=== PATIENT | male | born 1960 | race Caucasian/White ===

== ENCOUNTER 2017-10-29 12:09 | Outpatient (REF) | payer MEDICAID, SELFPAY ==
[2017-11-02 11:43] LABS: Hepatitis C Ab w Rflx HCV PCR Negative (NEGAT)
== END 2017-10-29 12:10 ==
LOC: NCHCN 12:09
PROVIDERS: Visit Provider Nurse Practitioner Family
DX: K52.9 Noninfective gastroenteritis and colitis, unspecified (principal); R19.7 Diarrhea, unspecified; I42.9 Cardiomyopathy, unspecified; M19.90 Unspecified osteoarthritis, unspecified site; F17.210 Nicotine dependence, cigarettes, uncomplicated
CPT/HCPCS: 86803

== ENCOUNTER 2019-01-14 13:02 | Outpatient (REF) | payer MEDICAID, SELFPAY ==
[2019-01-14 19:17] LABS: ALT 35 U/L (16-63); AST 25 U/L (15-37); Albumin 4.2 g/dL (3.4-5.0); Alkaline Phosphatase 90 U/L (46-116); Anion Gap 9.2 mmol/L (3-11); BUN 21 mg/dL (7-18); Bilirubin, Total 0.3 mg/dL (0.2-1.0); CO2 27.8 mmol/L (21.0-32.0); Calcium 9.3 mg/dL (8.5-10.1); Chloride 105 mmol/L (98-107); Glucose 111 mg/dL (70-100); Magnesium 1.8 mg/dL (1.8-2.4); Potassium 4.6 mmol/L (3.5-5.1); Sodium 142 mmol/L (136-145); Total Protein 7.4 g/dL (6.4-8.2); Vitamin B12 676 pg/mL (193-986)
== END 2019-01-14 13:22 ==
LOC: NCHCN 13:02
PROVIDERS: PCP Nurse Practitioner Family; Visit Provider Nurse Practitioner Family
DX: K30 Functional dyspepsia (principal); I42.9 Cardiomyopathy, unspecified; F17.210 Nicotine dependence, cigarettes, uncomplicated; J44.9 Chronic obstructive pulmonary disease, unspecified; L98.9 Disorder of the skin and subcutaneous tissue, unspecified; M54.2 Cervicalgia
CPT/HCPCS: 80053; 82607; 83735

== ENCOUNTER 2019-01-24 02:13 | Outpatient (CLI) | payer MEDICAID, SELFPAY ==
--- NOTE | 2019-01-24 14:15 | DI.CTLCSR_ITS ---
EXAM: CT CHEST LUNG CANCER SCREEN CT CHEST LUNG CANCER SCREEN CLINICAL HISTORY: . TOBACCO ABUSE, F17.210, F/U TECHNIQUE: Low-dose noncontrast COMPARISON: CHEST WITH CONTRAST from 03/18/2017 FINDINGS: Tracheobronchial tree: Patent where visualized. Mediastinum and Nohelia: No dominant adenopathy or fluid collection. Pulmonary parenchyma: No consolidation or dominant measurable mass. There is mild biapical scarring. Lung Nodules: None. Pleura: No effusion or pneumothorax. Heart/Aorta: Thoracic aorta non-dilated. The heart is not dilated. . Upper abdomen: Unremarkable. IMPRESSION: Normal low dose CT lung screening Lung-RADS Category: 1 - Negative (See reference table below.) Lung-RADS 1.0 CATEGORIES: Category 0 - Prior chest CT exam(s) being located for comparison. Category 1 - Annual screening in 12 months. No nodules or definitely benign nodules. Category 2 - Annual screening in 12 months. Benign appearance. Nodules with low likelihood of becomin g active cancer. Category 3 - 6-month follow-up. Probably benign. Short-term follow-up suggested. Nodules with low lik elihood of becoming active cancer. Category 4A - 3-month follow-up and CT/PET if >8 mm in size. Suspicious finding. Findings which requi re additional testing. Category 4B - Findings which require additional testing and tissue sampling. Suspicious finding. C Added to Any of the Above - History of prior lung cancer screening. S Added to Any of the Above - Significant unexpected other finding. DATA REPOSITORY: All CT scans at this facility are submitted to the National Radiology Data Registry (NRDR) Dose Index Registry (DIR) with the [employer] (ACR). RADIATION OPTIMIZATION: All CT scans at this facility use at least one of these dose optimization te chniques: automated exposure control; mA and/or kV adjustment per patient size (includes targeted exa ms where dose is matched to clinical indication); or iterative reconstruction.
== END 2019-01-24 02:33 ==
PROVIDERS: PCP Nurse Practitioner Family; Visit Provider Nurse Practitioner Family
DX: Z12.2 Encounter for screening for malignant neoplasm of respiratory organs (principal); F17.210 Nicotine dependence, cigarettes, uncomplicated
CPT/HCPCS: G0297

== ENCOUNTER 2019-12-26 13:57 | Outpatient (REF) | payer MEDICAID, SELFPAY ==
[2019-12-30 14:37] LABS: Patient Race White; SARS-CoV-2 RNA Undetected (Undetected); SARS-CoV-2 Specimen Source Nasal
== END 2019-12-26 14:17 ==
LOC: NCHCN 13:57
PROVIDERS: PCP Nurse Practitioner Family; Visit Provider Nurse Practitioner Family
DX: Z20.828 Contact with and (suspected) exposure to other viral communicable diseases (principal)
CPT/HCPCS: U0003

== ENCOUNTER 2020-02-07 16:25 | Outpatient (CLI) | payer MEDICAID, SELFPAY ==
--- NOTE | 2020-02-07 11:53 | DI.RAD_ITS ---
EXAM: XR CHEST 2V PA LATERAL CLINICAL HISTORY: CHEST WALL PAIN, R07.89 TECHNIQUE: 2D digital imaging was performed. COMPARISON: CR CHEST 2 VIEWS PA,LAT from 05/06/2016 FINDINGS: The heart is not enlarged. The lungs are clear and well expanded. There may be mild changes of COPD and scarring. No pleural effusion seen. Mediastinal contours appear intact. IMPRESSION: No evidence of acute process. RADIATION DOSE DELIVERED: Total DLP
== END 2020-02-07 16:45 ==
PROVIDERS: PCP Nurse Practitioner Family; Visit Provider Nurse Practitioner Family
DX: R07.89 Other chest pain (principal)
CPT/HCPCS: 71046

== ENCOUNTER 2020-04-03 16:16 | Outpatient (REF) | payer MEDICAID, SELFPAY ==
[2020-04-03 13:24] LABS: Abs Immature Grans 0.06 10^3/uL (0.0-0.06); Absolute Basophil Count 0.04 10^3/uL (0.0-0.2); Absolute Eosinophil Count 0.18 10^3/uL (0.0-0.7); Absolute Lymphocyte Count 2.44 10^3/uL (1.2-3.4); Absolute Monocyte Count 0.77 10^3/uL (0.1-0.8); Absolute Neutrophil Count 3.92 10^3/uL (1.2-6.7); Basophils % 0.5; Eosinophils % 2.4; HCT 46.4 % (40.0-50.0); HGB 15.3 g/dL (13.5-17.5); Immature Grans % 0.8; Lymphocytes % 32.9; MCH 30.9 pg (27.0-33.0); MCV 93.7 fL (80-95); Monocytes % 10.4; Nucleated RBC 0 %; Platelet Count 219 10^3/uL (130-400); RBC 4.95 10^6/uL (4.36-5.78); RDW 12.4 % (11.8-14.1); RDW-SD 43.3 fL; WBC 7.41 10^3/uL (4.4-10.8)
[2020-04-03 14:36] LABS: ALT 38 U/L (16-63); AST 24 U/L (15-37); Albumin 4.1 g/dL (3.4-5.0); Alkaline Phosphatase 80 U/L (46-116); Anion Gap 8.5 mmol/L (3-11); BUN 22 mg/dL (7-18); Bilirubin, Total 0.3 mg/dL (0.2-1.0); CO2 25.5 mmol/L (21.0-32.0); CREATININE 0.9 mg/dL (0.70-1.30); Calcium 9.4 mg/dL (8.5-10.1); Chloride 104 mmol/L (98-107); Glucose 122 mg/dL (74-106); Magnesium 1.7 mg/dL (1.8-2.4); Potassium 4.4 mmol/L (3.5-5.1); Sodium 138 mmol/L (136-145); TSH (W/Ref FT4) 1.55 uIU/mL (0.36-3.74); Total Protein 7.5 g/dL (6.4-8.2); Vitamin B12 514 pg/mL (193-986)
[2020-04-03 14:44] LABS: C-Reactive Protein 0.05 mg/dL (0.0-0.3)
[2020-04-04 09:31] LABS: Cyclic Citrullinated Peptide <2.5 U/mL (<5.0)
[2020-04-04 09:38] LABS: HIV-1/2 Ag & Ab Screen Negative (Negative)
[2020-04-04 12:22] LABS: ANA Interpretation Positive (Negative); ANA Titer Pattern 1:160 Speckled
== END 2020-04-03 16:17 | disposition home or self-care (01) ==
LOC: NCHCN 16:16
PROVIDERS: PCP Nurse Practitioner Family; Visit Provider Nurse Practitioner Family
DX: M54.2 Cervicalgia (principal); M25.59 Pain in other specified joint; M54.6 Pain in thoracic spine; M79.642 Pain in left hand; M79.671 Pain in right foot; K30 Functional dyspepsia; I42.9 Cardiomyopathy, unspecified; F17.210 Nicotine dependence, cigarettes, uncomplicated; J44.9 Chronic obstructive pulmonary disease, unspecified; Z11.4 Encounter for screening for human immunodeficiency virus [HIV]
CPT/HCPCS: 80053; 85652; 86200; 87389; 82607; 83735; 84443; 85025; 86038; 86140

== ENCOUNTER 2020-04-05 21:29 | Outpatient (REF) | payer MEDICAID, SELFPAY ==
[2020-04-06 09:07] LABS: ESR 13 mm/hr (<or=20)
[2020-04-09 10:41] LABS: Lyme Ab w Rflx to Lyme Confirm Negative (Negative)
[2020-04-09 19:10] LABS: Anaplasma phagocytophilum Negative (Negative); B. miyamotoi PCR Negative (Negative); Babesia divergens/MO-1 Negative (Negative); Babesia duncani Negative (Negative); Babesia microti Negative (Negative); Ehrlichia chaffeensis Negative (Negative); Ehrlichia ewingii/canis Negative (Negative); Ehrlichia muris eauclairensis Negative (Negative)
[2020-04-10 12:56] LABS: dsDNA Ab, IgG <12.3 IU/mL (<30.0)
[2020-04-10 15:22] LABS: RNP Ab, IgG 2.7 Units (<20.0); SS-A Antibody 6.1 Units (<20.0); SS-B (La) Ab, IgG 3.3 Units (<20.0); Sm (Smith) Ab, IgG 2.9 Units (<20.0)
== END 2020-04-05 21:30 | disposition home or self-care (01) ==
LOC: NCHCN 21:29
PROVIDERS: PCP Nurse Practitioner Family; Visit Provider Nurse Practitioner Family
DX: M25.59 Pain in other specified joint (principal)
CPT/HCPCS: 85652; 87798; 86225; 86235; 86618

== ENCOUNTER 2020-04-09 01:47 | Outpatient (CLI) | payer MEDICAID, SELFPAY ==
--- NOTE | 2020-04-09 15:05 | DI.CTLCSR_ITS ---
EXAM: CT CHEST LUNG CANCER SCREEN CLINICAL HISTORY: SCREENING FOR LUNG CA, COPD, J44.9,SMOKER, F17.210 TECHNIQUE: Imaging Protocol: Axial computed tomography images with coronal and sagittal reformatted images were created and reviewed COMPARISON: CT CT CHEST LUNG CANCER SCREEN from 01/24/2019 FINDINGS: Tracheobronchial tree: Patent where visualized. Pulmonary parenchyma: No consolidation or dominant measurable mass. Mild centrilobular and paraseptal emphysema. Lung Nodules: None. Mediastinum and Nohelia: No dominant adenopathy or fluid collection. Pleura: No effusion or pneumothorax. Heart: The heart is not dilated. No coronary artery calcifications are seen. No pericardial effusion . Aorta: Thoracic aorta non-dilated. Upper abdomen: Unremarkable. Soft Tissues: Unremarkable. Bones: Within normal limits. IMPRESSION: No pulmonary nodules. Lung RADS Cat 1 - Negative: No nodules and definitely benign nodules Lung-RADS 1.0 CATEGORIES: Category 0 - Prior chest CT exam(s) being located for comparison. Category 1 - Annual screening in 12 months. No nodules or definitely benign nodules. Category 2 - Annual screening in 12 months. Benign appearance. Nodules with low likelihood of becomin g active cancer. Category 3 - 6-month follow-up. Probably benign. Short-term follow-up suggested. Nodules with low lik elihood of becoming active cancer. Category 4A - 3-month follow-up and CT/PET if >8 mm in size. Suspicious finding. Findings which requi re additional testing. Category 4B - Findings which require additional testing and tissue sampling. Suspicious finding. C Added to Any of the Above - History of prior lung cancer screening. S Added to Any of the Above - Significant unexpected other finding. RADIATION DOSE DELIVERED: 84.06mGy.cm Total DLP 84.06mGy.cm Total DLP DATA REPOSITORY: All CT scans at this facility are submitted to the National Radiology Data Registry (NRDR) Dose Index Registry (DIR) with the [employer] (ACR). RADIATION OPTIMIZATION: All CT scans at this facility use at least one of these dose optimization te chniques: automated exposure control; mA and/or kV adjustment per patient size (includes targeted exa ms where dose is matched to clinical indication); or iterative reconstruction.
== END 2020-04-09 01:48 | disposition home or self-care (01) ==
LOC: DI 01:47
PROVIDERS: PCP Nurse Practitioner Family; Visit Provider Nurse Practitioner Family
DX: F17.210 Nicotine dependence, cigarettes, uncomplicated (principal); J44.9 Chronic obstructive pulmonary disease, unspecified
CPT/HCPCS: 71271

== ENCOUNTER 2020-05-08 15:25 | Outpatient (REF) | payer MEDICAID, SELFPAY | END 2020-05-08 15:26 | disposition home or self-care (01) | LOC: NCHCN 15:25 | PROVIDERS: PCP Nurse Practitioner Family; Visit Provider Nurse Practitioner Family | DX: R73.01 Impaired fasting glucose (principal) | CPT/HCPCS: 83036 ==

== ENCOUNTER 2020-08-09 12:24 | Outpatient (REF) | payer MEDICAID, SELFPAY ==
[2020-08-09 20:57] LABS: Hemoglobin A1C 5.8 % (<5.7)
== END 2020-08-09 12:25 | disposition home or self-care (01) ==
LOC: NCHCN 12:24
PROVIDERS: PCP Nurse Practitioner Family; Visit Provider Nurse Practitioner Family
DX: E83.42 Hypomagnesemia (principal); R73.03 Prediabetes; K30 Functional dyspepsia
CPT/HCPCS: 83036; 83735

== ENCOUNTER 2020-10-12 02:46 | Outpatient (CLI) | payer MEDICAID, SELFPAY ==
[2020-10-12 10:32] LABS: ALT 31 U/L (16-63); AST 23 U/L (15-37); Alkaline Phosphatase 67 U/L (46-116); Anion Gap 7.3 mmol/L (3-11); BUN 17 mg/dL (7-18); Bilirubin, Total 0.5 mg/dL (0.2-1.0); CO2 27.7 mmol/L (21.0-32.0); Calcium 9.1 mg/dL (8.5-10.1); Calculated LDL 89 mg/dL (<100); Chloride 105 mmol/L (98-107); Cholesterol 161 mg/dL (<200); Glucose 118 mg/dL (74-106); HDL Cholesterol 55 mg/dL (40-60); Potassium 4.5 mmol/L (3.5-5.1); Sodium 140 mmol/L (136-145); TSH (W/Ref FT4) 1.41 uIU/mL (0.36-3.74); Total Protein 7.5 g/dL (6.4-8.2); Triglyceride 86 mg/dL (<150)
[2020-10-12 10:33] LABS: Troponin I < 0.05 ng/mL (<0.06)
[2020-10-12 10:45] LABS: Creatine Kinase 130 U/L (39-308)
== END 2020-10-12 02:47 | disposition home or self-care (01) ==
LOC: LBO 02:46
PROVIDERS: PCP Nurse Practitioner Family; Visit Provider Internal Medicine Hematology & Oncology
DX: R07.9 Chest pain, unspecified (principal); I42.9 Cardiomyopathy, unspecified; G56.00 Carpal tunnel syndrome, unspecified upper limb; E83.42 Hypomagnesemia; F17.210 Nicotine dependence, cigarettes, uncomplicated
CPT/HCPCS: 36415; 80053; 80061; 82550; 84443; 84484

== ENCOUNTER 2020-10-12 07:58 | Outpatient (RCR) | payer MEDICAID, SELFPAY ==
--- NOTE | 2020-10-12 11:00 | HOLTER_ITS ---
APPROVED REPORT Conclusion This was a 48-hour Holter monitor ordered for chest pain and cardiomyopathy Rhythm throughout was sinus. Average heart rate was 87, minimum 48, maximum 126 There were moderately frequent ventricular ectopic beats, rare couplets. There were 2 runs of nonsus tained ventricular tachycardia, 4 and 5 beats in duration There were rare atrial premature beats. There was no atrial fibrillation, no high-grade AV block, no pauses greater than 3 seconds No patient diary was returned
== END 2020-10-12 07:59 | disposition home or self-care (01) ==
LOC: RT 07:58
PROVIDERS: PCP Nurse Practitioner Family; Visit Provider Nurse Practitioner Family
DX: R07.9 Chest pain, unspecified (principal); I42.9 Cardiomyopathy, unspecified; I49.3 Ventricular premature depolarization; I47.2 Ventricular tachycardia
CPT/HCPCS: 93225; 93226

== ENCOUNTER 2020-10-16 02:34 | Outpatient (CLI) | payer MEDICAID, SELFPAY ==
--- NOTE | 2020-10-16 | DI.US_ITS ---
APPROVED REPORT EXAM: Comprehensive 2D, Doppler, and color-flow Echocardiogram Patient Location: Out-Patient [employer]: Haylee Londono RDCS (AE) Indications: Chest pain, Cardiomyopathy Other Information Study Quality: Adequate Conclusion Left Ventricle : The left ventricle is normal size. The left ventricular systolic function is normal. The left ventricular ejection fraction is within the normal range. There is normal left ventricular wall thickness. There is normal LV segmental wall motion. The left ventricular diastolic function is normal. LVEF is 57%. Right Ventricle : The right ventricle is normal size. The right ventricular systolic function is norm al. The RVSP is 27.9mmHg. Atria : The left atrium size is normal. The right atrium size is normal. Mitral Valve : The mitral valve is normal in structure. Mild mitral regurgitation. No evidence of fazal ral valve stenosis. Please see remainder of study for further details. Wall motion Left Ventricle The left ventricle is normal size. The left ventricular systolic function is normal. The left ventric ular ejection fraction is within the normal range. There is normal left ventricular wall thickness. T here is normal LV segmental wall motion. The left ventricular diastolic function is normal. There is no ventricular septal defect visualized. LVEF is 57%. Right Ventricle The right ventricle is normal size. The right ventricular systolic function is normal. The RVSP is 27 .9mmHg. Atria The left atrium size is normal. The right atrium size is normal. The interatrial septum is intact wit h no evidence for an atrial septal defect. Aortic Valve The aortic valve is normal in structure. Aortic valve is trileaflet. There is no aortic valvular sten osis. No aortic regurgitation is present. Mitral Valve The mitral valve is normal in structure. No evidence of mitral valve stenosis. Mild mitral regurgitat ion. Tricuspid Valve The tricuspid valve is normal in structure. There is no tricuspid valve stenosis. Trace tricuspid reg urgitation. Pulmonic Valve The pulmonary valve is normal in structure. There is no pulmonic valvular stenosis. There is no pulmo michael valvular regurgitation. Great Vessels The aortic root is normal in size. The ascending aorta is normal in size. Aortic arch is normal in ca liber. IVC is normal in size and collapses >50% with inspiration. Pericardium There is no pericardial effusion. 2D Dimensions IVSD d PLAX 0.75 cm M: 0.6-1.2 LV Vol A2C d MOD 122.5 mL LVPW d PLAX 0.76 cm M: 0.6 - 1.2 LV Vol A4C d MOD 143.1 mL LVID d PLAX 5.57 cm M: 4.2 - 5.8 LA vol/ BSA A2C s A-L 25.5 mL/m2 LVDs 3.80 cm M: 2.5 - 4.0 LA vol/ BSA A4C s A-L 25.7 mL/m2 Ao Root d 3.17 cm M: 3.1 - 3.7 LA Vol/ BSA Biplane s A-L 26.1 mL/m2 RA Area A4C 13.19 cm2 LA Area A4C s MOD 16.91 cm2 RA Vol/ BSA A4C s A-L 20.6 mL/m2 LA Area A2C s MOD 17.20 cm2 Ao Asc Diam d 3.31 cm M: 2.6 - 3.4 LV EF A4C MOD 56.4 % LV EF Teichholz 59.2 % LV EF A2C MOD 59.6 % LVEF (Fenton's) 57.90 % M: 52 - 72 LV EF Biplane MOD 57.9 % LV Volume 102.24 mL M: 62 - 150 SV 76.94 mL LV Volume Index 55.26 mL/m2 M: 34 - 74 SV Index 41.46 mL/m2 LV Vol Biplane MOD 132.9 mL FS 31.75 % M-Mode TAPSE 2.56 cm (M/F) >1.7 LV Diastology MV E' medial 0.101 (>0.07 m/s) E/A Ratio 1.7 LV E/e MED 9.45 (<14) MV E Vmax 0.96 (0.4-1.3 m/s) MV E' lateral 0.119 (>0.1 m/s) MV A Vmax 0.55 (0.4-1.3 m/s) LV E/e LAT 8.10 (<14) MV E/A Ratio 1.63 MV E/E' medial 9.48 MV E/E' lateral 8.11 Aortic Valve LVOT Area 2.92 cm2 AoV Area Vmax 2.42 cm2 LVOT Vmax 1.06 m/s AoV Area/ BSA (Vmax) 1.31 cm2/m2 LVOT Mean Darren. 0.64 m/s JEANIE Mean Darren. 2.17 cm2 LVOT Peak Grad 4.5 mmHg JEANIE Mean Darren. Index 1.17 cm2/m2 LVOT Mean Grad 2.0 mmHg LVOT VTI 0.243 m LVOT Diam s 1.90 cm AoV Vmax 1.27 m/s Velocity Ratio 0.83 AoV Mean Darren. 0.86 m/s AoV Peak Grad 6.5 mmHg LVOT SV 70.89 mL AoV Mean Grad 3.3 mmHg AoV VTI 0.293 m AoV Area VTI 2.42 cm2 AoV Area/ BSA (VTI) 1.30 cm/m2 Mitral Valve MV DT 218 (160-240 msec) MR Vmax 5.04 m/s MV PHT 63 msec MR VTI 1.974 m MV Area PHT 3.48 cm2 MR Peak Grad 101.4 mmHg MV VTI 0.342 m MR Mean Grad 66.2 mmHg MV VTI Annulus 0.347 m MR PISA Radius 0.44 cm MV Area VTI 2.10 (4.0-6.0 cm2) MR EROA 0.09 cm2 MR Aliasing Velocity 0.35 m/s MR PISA 1.24 cm2 Pulmonary Valve PV Vmax 1.01 (0.5-1.5 m/s) RVOT Peak Gr. 1.05 mmHg PV Peak Grad 4.1 mmHg RVOT Mean Gr. 0.50 mmHg PV Mean Grad 2.2 mmHg RVOT VTI 0.127 m PV VTI 0.232 m RVOT Vmax 0.51 m/s Tricuspid Valve TR Peak Grad 24.8 mmHg TR Vmax 2.49 m/s RA Pressure 3.00 mmHg RVSP (TR) 27.9 mmHg
== END 2020-10-16 02:54 ==
PROVIDERS: PCP Nurse Practitioner Family; Visit Provider Nurse Practitioner Family
DX: R07.9 Chest pain, unspecified (principal); I42.9 Cardiomyopathy, unspecified; I34.0 Nonrheumatic mitral (valve) insufficiency
CPT/HCPCS: 93306

== ENCOUNTER 2020-11-08 09:46 | Outpatient (CLI) | payer MEDICAID, SELFPAY ==
--- NOTE | 2020-11-08 09:45 | RT.EKG_ITS ---
APPROVED REPORT Exam: Resting ECG Reason for Exam: CP, PVC's Patient Location: O HR:58 bpm ECG Measurements Heart Rate 58 AXIS WV 138 P 65 QRSd 109 QRS 67 QT 413 T 54 QTc 406 Conclusion Sinus rhythm...normal P axis, V-rate 50- 99 Normal Electrocardiogram
== END 2020-11-08 09:47 | disposition home or self-care (01) ==
LOC: DI.CARD 09:47
PROVIDERS: PCP Nurse Practitioner Family; Visit Provider Internal Medicine Cardiovascular Disease
DX: I49.3 Ventricular premature depolarization (principal); R07.9 Chest pain, unspecified
CPT/HCPCS: 93010

== ENCOUNTER 2020-11-12 01:38 | Outpatient (CLI) | payer MEDICAID, SELFPAY ==
--- NOTE | 2020-11-12 15:00 | ETT_ITS ---
APPROVED REPORT Exam: Exercise Treadmill Patient Location: Out-Patient Room/Bed: Stress Nurse: Iman Shah RN Ordering Provider:ZAK THOMASD, Contact Number: [phone] BMI: 20.34 Baseline Rhythm: Sinus Rhythm Indications: Chest pain, atypical Medical History Medical History: Bradycardia, Cardiomyopathy, COPD, GERD, HLD, HTN, PVCs, Tobacco abuse Cardiac Medications: Tiotropium bromide inhaler, Omeprazole, Lisinopril, Atorvastatin, Aspirin, Albut ángela sulfate. Allergies: PNCs Cardiac Risk Factors: HTN, Hyperlipidemia, COPD, Smoking (current) Previous Cardiac Procedures: None Pretest Chest Pain Characteristics: No chest pain Exercise History: Sedentary Physical Disabilities: None Lung Sounds: Clear to auscultation Heart Sounds: Regular Stress Test Details Test: Exercise stress testing was performed using a Johny protocol. Rest Stress HR Resting HR Supine: 64 bpm Max Heart Rate (APMHR): 163 bpm Resting HR Standin bpm Target HR (85% APMHR): 138 bpm Max HR Achieved: 167 bpm % of APMHR: 102 Recovery HR: 88 bpm HR response to stress: Normal HR response to stress BP Resting BP Supine: 132/76 mmHg Resting BP Standin/74 mmHg Max BP: 186/68 mmHg Recovery BP: 130/76 mmHg BP response to stress: Normal blood pressure response to stress. ECG Resting ECG: Sinus Rhythm Ectopy: PVCs, PACs Stress ECG: Sinus Tachycardia ST Change: No significant ST segment changes noted Arrhythmia: Couplets, frequent PVCs Recovery ECG: Sinus Rhythm Recovery ST Change: No significant ST segment changes noted Recovery Arrhythmia: Couplets, PVCs, PACs Clinical Reason for Termination: Fatigue Stress Symptoms: General Fatigue, Dyspnea Exercise duration: 10 min23 sec Highest Stage Reached: Stage 4: 4.2 mph at 16% grade. Exercise capacity: 12.45 METs Escobar Treadmill Score: 9 Rate Pressure Product: [id number] Stress ECG Conclusion 1. The patient exercised for 10 minutes (12.4 METS). Exercise was stopped due to fatigue. 2. The patient no symptoms suggestive of ischemia 3. There is no evidence of ischemia on ECG portion exam. Escobar Treadmill Score is 9 which is Low risk. Stress Test Summary STAGE Time (mins) Speed (mph) Grade (%) HR BP SYMPTOMS METS Supine 64 132/76 Standing 71 130/74 1 3 1.7 10 97 134/76 SpO2 95% 4.6 2 6 2.5 12 110 142/70 SpO2 96%, c/o mild SOB 7 3 9 3.4 14 143 158/70 10.2 4 12 4.2 16 SpO2 94% 12.9 1 min recovery 140 186/68 lightheaded 3 min recovery 99 154/72 symptoms resolved 6 min recovery 88 130/76
== END 2020-11-12 01:58 ==
PROVIDERS: PCP Nurse Practitioner Family; Visit Provider Internal Medicine Cardiovascular Disease
DX: R07.89 Other chest pain (principal); I49.1 Atrial premature depolarization; I49.3 Ventricular premature depolarization
CPT/HCPCS: 93017

== ENCOUNTER 2021-02-14 01:56 | Outpatient (CLI) | payer MEDICAID, SELFPAY ==
--- NOTE | 2021-02-14 13:33 | DI.RAD_ITS ---
Exam(s) XR KNEE LT 4V AP,LAT,CALI,PAT EXAM: XR KNEE LT 4V AP,LAT,CALI,PAT CLINICAL HISTORY: LT KNEE EFFUSION,M25.462. TECHNIQUE: 2D digital imaging was performed. COMPARISON: No exams were available for comparison FINDINGS: No evidence of fracture nor joint effusion. Mild degenerative changes in the medial compartment. No osseous lesions. Bone density normal IMPRESSION: Mild degenerative change medial compartment. No other findings. No joint effusion. DATA REPOSITORY: RADIATION DOSE DELIVERED:
== END 2021-02-14 02:16 ==
PROVIDERS: PCP Nurse Practitioner Family; Visit Provider Family Medicine
DX: M25.562 Pain in left knee (principal); M25.462 Effusion, left knee; M17.12 Unilateral primary osteoarthritis, left knee
CPT/HCPCS: 73564

== ENCOUNTER 2021-05-13 00:46 | Outpatient (CLI) | payer MEDICAID, SELFPAY ==
--- NOTE | 2021-05-13 | DI.CTLCSR_ITS ---
Exam(s) CT CHEST LUNG CANCER SCREEN EXAM: CT CHEST LUNG CANCER SCREEN CLINICAL HISTORY: SCREENING FOR LUNG CA, SMOKER, F17.210 TECHNIQUE: Imaging Protocol: Axial computed tomography images with coronal and sagittal reformatted images were created and reviewed COMPARISON: CT CT Chest Without Contr from 07/14/[address] CHEST LUNG CANCER SCREEN from 04/09/2020 FINDINGS: Tracheobronchial tree: Patent where visualized. Mediastinum and Nohelia: No dominant adenopathy or fluid collection. Pulmonary parenchyma: No consolidation or dominant measurable mass. Mild emphysematous changes. Mild scarring. Lung Nodules: Stable 5 millimeter right upper lobe perifissural nodule. Pleura: No effusion or pneumothorax. Heart: The heart is not dilated. No coronary artery calcifications are seen. Aorta: Thoracic aorta non-dilated. Upper abdomen: Unremarkable. Bones: Unremarkable for age.. Soft Tissues: Unremarkable. IMPRESSION: No suspicious pulmonary nodules. Stable 5 millimeter right upper lobe perifissural nodule. Lung RADS Cat 1 - Negative: No nodules and definitely benign nodules Lung-RADS 1.0 CATEGORIES: Category 0 - Prior chest CT exam(s) being located for comparison. Category 1 - Annual screening in 12 months. No nodules or definitely benign nodules. Category 2 - Annual screening in 12 months. Benign appearance. Nodules with low likelihood of becomin g active cancer. Category 3 - 6-month follow-up. Probably benign. Short-term follow-up suggested. Nodules with low lik elihood of becoming active cancer. Category 4A - 3-month follow-up and CT/PET if >8 mm in size. Suspicious finding. Findings which requi re additional testing. Category 4B - Findings which require additional testing and tissue sampling. Category 4X - Category 3 or 4 nodules with additional features or imaging findings that increases the suspicion of malignancy. Modifier S- Potentially clinically significant findings (non lung cancer) RADIATION DOSE DELIVERED: 83.23mGy.cm Total DLP 1.84mGy CTDIvol DATA REPOSITORY: All CT scans at this facility are submitted to the National Radiology Data Registry (NRDR) Dose Index Registry (DIR) with the [employer] (ACR). RADIATION OPTIMIZATION: All CT scans at this facility use at least one of these dose optimization te chniques: automated exposure control; mA and/or kV adjustment per patient size (includes targeted exa ms where dose is matched to clinical indication); or iterative reconstruction.
== END 2021-05-13 01:06 ==
PROVIDERS: PCP Nurse Practitioner Family; Visit Provider Nurse Practitioner Family
DX: Z12.2 Encounter for screening for malignant neoplasm of respiratory organs (principal); F17.210 Nicotine dependence, cigarettes, uncomplicated; R91.1 Solitary pulmonary nodule
CPT/HCPCS: 71271

== ENCOUNTER 2021-10-22 17:21 | Outpatient (REF) | payer MEDICAID, SELFPAY ==
[2021-10-22 19:25] LABS: Hemoglobin A1C 5.7 % (<5.7)
[2021-10-22 19:39] LABS: ALT 32 U/L (16-63); AST 22 U/L (15-37); Albumin 4.3 g/dL (3.4-5.0); Alkaline Phosphatase 70 U/L (46-116); Anion Gap 10.1 mmol/L (3-11); BUN 17 mg/dL (7-18); Bilirubin, Total 0.4 mg/dL (0.2-1.0); CO2 28.9 mmol/L (21.0-32.0); CREATININE 0.9 mg/dL (0.70-1.30); Calcium 9.2 mg/dL (8.5-10.1); Chloride 103 mmol/L (98-107); Glucose 112 mg/dL (74-106); Magnesium 1.1 mg/dL (1.8-2.4); Potassium 3.7 mmol/L (3.5-5.1); Sodium 142 mmol/L (136-145); Total Protein 7.9 g/dL (6.4-8.2); Vitamin B12 693 pg/mL (193-986)
== END 2021-10-22 17:22 | disposition home or self-care (01) ==
LOC: NCHCN 17:21
PROVIDERS: PCP Nurse Practitioner Family; Visit Provider Nurse Practitioner Family
DX: E78.5 Hyperlipidemia, unspecified (principal); R73.03 Prediabetes; E83.42 Hypomagnesemia; K30 Functional dyspepsia; Z86.39 Personal history of other endocrine, nutritional and metabolic disease
CPT/HCPCS: 80053; 82607; 83036; 83735

== ENCOUNTER 2021-11-06 17:03 | Emergency (ER) | payer MEDICAID, SELFPAY ==
[2021-11-06] VITALS (38 sets, daily range): BP systolic 112–152; BP diastolic 73–101; PULSE 53–95; RESP 11–23; TEMP 37; O2SAT 95–99
--- NOTE | 2021-11-06 17:45 | RT.EKG_ITS ---
APPROVED REPORT Exam: Resting ECG Reason for Exam: weakness Patient Location: E HR:62 bpm ECG Measurements Heart Rate 62 AXIS NH 142 P 68 QRSd 112 QRS 77 QT 412 T 40 QTc 419 Conclusion Sinus rhythm...normal P axis, V-rate 60- 99
--- NOTE | 2021-11-06 17:45 | DI.RAD_ITS ---
Exam(s) XR PORTABLE CHEST AP EXAM: XR PORTABLE CHEST AP CLINICAL HISTORY: weakness TECHNIQUE: 2D digital imaging was performed of the chest. Two images were obtained. AP views were obtained. COMPARISON: CR XR CHEST 2V PA LATERAL from 02/07/[address] CHEST LUNG CANCER SCREEN from 05/13/2021 FINDINGS: MEDIASTINUM: Normal. HEART: Normal. PULMONARY VASCULATURE: Normal. LUNGS: No focal consolidating infiltrates. PLEURAL SPACE: No pleural effusion or pneumothorax. BONE:Within normal limits for the patient's age. OTHER FINDINGS:Normal. IMPRESSION: No acute pulmonary findings. DATA REPOSITORY: RADIATION DOSE DELIVERED:
[2021-11-06] MEDS: Lactated Ringers 1,000 ML 1000 ML IV (18:21)
[2021-11-06] MEDS: Ondansetron 4 MG/2 ML VIAL IVP (18:22)
[2021-11-06 18:42] LABS: Abs Immature Grans 0.04 10^3/uL (0.0-0.06); Absolute Basophil Count 0.03 10^3/uL (0.0-0.2); Absolute Eosinophil Count 0.15 10^3/uL (0.0-0.7); Absolute Lymphocyte Count 3.25 10^3/uL (1.2-3.4); Absolute Monocyte Count 0.85 10^3/uL (0.1-0.8); Absolute Neutrophil Count 4.27 10^3/uL (1.2-6.7); Basophils % 0.3; Eosinophils % 1.7; HCT 47.5 % (40.0-50.0); HGB 16.9 g/dL (13.5-17.5); Immature Grans % 0.5; Lymphocytes % 37.8; MCH 31.9 pg (27.0-33.0); MCHC 35.6 % (32.0-36.0); MCV 90 fL (80-95); MPV 10.3 fL (8.0-11.0); Monocytes % 9.9; Neutrophils % 49.8; Platelet Count 252 10^3/uL (130-400); RDW 11.4 % (11.8-14.1); RDW-SD 37.7 fL; WBC 8.59 10^3/uL (4.4-10.8)
[2021-11-06 18:52] LABS: ALT 40 U/L (16-63); AST 22 U/L (15-37); Albumin 4.1 g/dL (3.4-5.0); Alkaline Phosphatase 73 U/L (46-116); Anion Gap 7.5 mmol/L (3-11); BUN 27 mg/dL (7-18); Bilirubin, Total 0.3 mg/dL (0.2-1.0); CO2 27.5 mmol/L (21.0-32.0); CREATININE 0.9 mg/dL (0.70-1.30); Calcium 8.9 mg/dL (8.5-10.1); Chloride 102 mmol/L (98-107); Creatine Kinase 62 U/L (39-308); Glucose 116 mg/dL (74-106); Potassium 4.1 mmol/L (3.5-5.1); Sodium 137 mmol/L (136-145); Total Protein 7.9 g/dL (6.4-8.2); Troponin I < 50 ng/L (<or=60)
--- NOTE | 2021-11-06 19:01 | DI.VRAD_ITS ---
PROCEDURE INFORMATION: Exam: XR Chest Exam date and time: 11/06/2021 6:37 PM Age: 60 years old Clinical indication: Other: Weakness TECHNIQUE: Imaging protocol: Radiologic exam of the chest. Views: 1 view. COMPARISON: CT CHEST LUNG CANCER SCREEN 05/13/2021 8:58 AM FINDINGS: Lungs: Mild chronic interstitial prominence. No consolidation. Pleural spaces: No pleural effusion. No pneumothorax. Heart/Mediastinum: No cardiomegaly. Bones/joints: Unremarkable. IMPRESSION: No acute findings. Dictated and Authenticated by: Gab Brothers MD. Ordering:LAVERNE Jo MD
[2021-11-06 19:46] LABS: Bilirubin Negative (Negative); Blood Negative (Negative); Clarity Clear (Clear); Glucose Negative (Negative); Ketones Negative (Negative); Leukocyte Esterase Negative (Negative); Nitrite Negative (Negative); Specific Gravity 1.015 (1.005-1.025); Urobilinogen 0.2 EU/dL (Up TO 0.2); pH 6.5 (5-8)
--- NOTE | 2021-11-08 22:27 | W.ED.GENAD ---
Discharge Plan Disposition Patient Disposition: HOME Condition: Stable Discharge Details Clinical Impression: Weakness, Nausea Primary Care Provider: Padma Abrams ED Provider: Deysi Ayoub Home Meds and New Rx's Prescriptions: New ondansetron 4 mg tablet,disintegrating 4 mg PO TID PRN (Reason: nausea and vomiting) Qty: 10 0RF Continued aspirin 81 MG tablet,chewable 81 mg PO DAILY Qty: 30 0RF Calcium Magnesium 1 EACH tablet 1 ea PO DAILY vitamin B complex 1 EACH capsule 1 ea PO DAILY cholecalciferol (vitamin D3) [Vitamin D3] 2,000 UNIT capsule 2,000 unit PO DAILY atorvastatin 20 mg tablet 20 mg PO DAILY Spiriva with HandiHaler 18 mcg capsule, w/inhalation device 1 cap inhalation DAILY Rx Instructions: puncture 1 cap using device; one dose = 2 inhalations albuterol sulfate [ProAir HFA] 90 mcg/actuation HFA aerosol inhaler 2 inh inhalation Q6H PRN omeprazole 20 mg capsule,delayed release(DR/EC) 20 mg PO DAILY lisinopril 10 MG tablet 10 mg PO DAILY No Action diltiazem HCl 120 mg capsule,extended release 24hr 120 mg PO DAILY Discharge Instructions Instructions: Acute Nausea and Vomiting (ED), Weakness (ED) Additional Instructions: Take Zofran as needed for nausea and vomiting Drink eight 8 ounce glasses of water daily Follow-up with your doctor for close outpatient reassessment Return earlier should you have new or worsening complaints Stand Alone Forms: Work Release Referrals: Padma Abrams [Primary Care Provider] - Discharge Data Discharge Date/Time-TO BE ENTERED AT DEPARTURE: 11/06/21 21:29 Medical Decision Making Patient has negative chest x-ray and diagnostic blood work aside from elevated BUN, possibly dehydration is a consideration He has not orthostatic, he is ambulatory with steady gait Feeling symptomatically improved, in fact he is asymptomatic at time of discharge home At this time is unclear why his symptoms are presenting I see no clear indication for CT imaging, he is denying any dizziness He is encouraged to follow-up with primary care physician in 24 hours for reassessment and to return earlier should he have new or worsening complaints Medical Records Medical records reviewed: Yes I reviewed the patient's medical records. Lab Data Lab results reviewed: Yes I reviewed the patient's lab results. HPI General Date/Time Provider Initiated Documentation: 11/06/21 17:17. HPI Narrative: This 52-year-old gentleman presents with lightheadedness and weakness. He states that he was seen by his doctor recently symptoms at the beginning of the week and placed on magnesium. He states that he has had the symptoms before but never quite sure at this time. He denies any chest pain, shortness of breath. He denies any chest pain or abdominal pain. He denies any urinary symptoms, fever, chills, or any additional complaints at this time. He denies any rashes or lesions. He denies any illicit drug use. He states he feels his symptoms worsen when he goes from sitting to standing. Related Data Home Medications Medication Instructions Recorded Confirmed aspirin 81 mg chewable tablet 81 mg PO DAILY #30 tab-caps 01/28/17 11/08/21 lisinopril 10 mg tablet 10 mg PO DAILY 02/19/17 11/08/21 calcium carb-Ca gluc 500 mg 1 ea PO DAILY 04/27/17 11/08/21 calcium-magnesium ox-Mg gluc 250 mg tablet (Calcium Magnesium) cholecalciferol (vitamin D3) 50 2,000 unit PO DAILY 04/30/17 11/08/21 mcg (2,000 unit) capsule (Vitamin D3) vitamin B complex 1 ea PO DAILY 04/30/17 11/08/21 albuterol sulfate 90 mcg/actuation 2 inh inhalation Q6H PRN 10/26/20 11/08/21 aerosol inhaler (ProAir HFA) atorvastatin 20 mg tablet 20 mg PO DAILY 10/26/20 11/08/21 omeprazole 20 mg capsule,delayed 20 mg PO DAILY 10/26/20 11/08/21 release tiotropium bromide 18 mcg capsule 1 cap inhalation DAILY 10/26/20 11/08/21 with inhalation device (Spiriva with HandiHaler) ondansetron 4 mg disintegrating 4 mg PO TID PRN nausea and 11/06/21 11/08/21 tablet vomiting #10 tabs diltiazem HCl 120 mg 120 mg PO DAILY 11/08/21 11/08/21 capsule,extended release 24 hr Previous Rx's Medication Instructions Recorded aspirin 81 mg chewable tablet 81 mg PO DAILY #30 tab-caps 01/28/17 ondansetron 4 mg disintegrating 4 mg PO TID PRN nausea and 11/06/21 tablet vomiting #10 tabs Allergies Allergy/AdvReac Type Severity Reaction Status Date / Time Penicillins Allergy unknown Verified 11/08/20 09:54 General Stated Complaint: GenMedical JUAN ANTONIO: 3 Review of Systems All systems reviewed & are unremarkable except as noted in HPI and below PFSH All Active Problems Weakness (Acute) Nausea (Acute) History of cardiomyopathy (Acute) Premature ventricular contractions (Acute) Chest pain (Acute) Prediabetes (Acute) Carpal tunnel syndrome on both sides (Acute) Right foot pain (Acute) Right lateral epicondylitis (Acute 10/15/16) Carpal tunnel syndrome of left wrist (Acute 07/04/15) Medical History Bradycardia Cardiomyopathy Colitis COPD (chronic obstructive pulmonary disease) GERD (gastroesophageal reflux disease) Hyperlipidemia Hypertension Neck pain Osteoarthritis Periodontal disease Pulmonary nodules Quit consuming alcohol in remote past Thoracic back pain Tobacco abuse Surgical History S/P carpal tunnel release Tonsillectomy Family History Other Cancer Diabetes Social History (Updated 11/08/21 @ 10:10 by Jayjay Ferreira RN) Smoking/Tobacco Use Status: Current every day Tobacco Type: cigarettes Smoking packs per day: 1 Smoking cigarettes per day: 20.0 Tobacco: How many years used: 45 Smoking risk assessment performed?: Yes Alcohol Intake: former Year quit: 2017 Drug use: Daily Substance use type: marijuana Household members: spouse Housing: house Number of Children: 5 number of grandchildren: 9 current occupation: [employer] Pets and animals: Yes Pets and animals: cat(s) What is your relationship status?: Panel score (0-1 are the most socially isolated patients): 1 Seatbelt use: sometimes Do you feel safe at home: Yes Do you feel safe in your relationship?: Yes Exam Const General: cooperative, comfortable and no acute distress Orientation: alert and oriented x3 HENMT Head: normal to inspection Throat: uvula midline Other: Moist mucous membrane Eyes Pupils: PERRL Chest Chest: normal inspection of the chest Resp Effort & Inspection: normal respiratory effort Auscultation: clear to auscultation bilaterally Cardio Rate: regular rate Rhythm: regular rhythm GI Other: Nontender abdominal exam Skin General skin exam: no rashes or lesions noted Neuro General: patient alert and patient oriented x3 Cranial Nerves: CN's II-XI intact bilaterally and tongue midline Cognition: normal cognition Speech: speech normal Gait: normal gait Motor: strength 5/5 throughout Sensory Exam: no sensory deficits noted Other: negative pronator drift, neg fnf Extrem Other: no peripheral edema Course Vital Signs Vital signs: Vital Signs Pulse Oximetry 97 11/06/21 17:18 Temperature 37 C 11/06/21 17:19 Pulse 63 11/06/21 20:51 Pulse 55 L 11/06/21 20:46 Respiratory Rate 16 11/06/21 20:51 Respiratory Effort Non-Labored 11/06/21 18:09 Respiratory Depth Normal 11/06/21 18:09 Respiratory Pattern Normal 11/06/21 18:09 Blood Pressure 118/75 11/06/21 20:51 Blood Pressure Mean 92 11/06/21 20:46 Blood Pressure Position Supine 11/06/21 17:19 Pulse Oximetry 96 11/06/21 20:51 Oxygen Delivery Method Room Air 11/06/21 17:19 Oxygen Flow Rate 0 11/06/21 17:19 Pain Level 6 11/06/21 17:19 Lab/Test Results Lab/Test Results: Laboratory Tests Range/Units 11/06/21 11/06/21 11/06/21 18:15 18:15 19:10 WBC (4.4-10.8) 10^3/uL 8.59 RBC (4.36-5.78) 10^6/uL 5.30 Hgb (13.5-17.5) g/dL 16.9 Hct (40.0-50.0) % 47.5 MCV (80-95) fL 90 MCH (27.0-33.0) pg 31.9 MCHC (32.0-36.0) % 35.6 RDW (11.8-14.1) % 11.4 L Plt Count (130-400) 10^3/uL 252 MPV (8.0-11.0) fL 10.3 Immature Gran % 0.5 Neutrophils % 49.8 Lymphocytes % 37.8 Monocytes % 9.9 Eosinophils % 1.7 Basophils % 0.3 Nucleated RBC % (0.0-0.3) % 0.0 Absolute Neutrophils (1.2-6.7) 10^3/uL 4.27 Absolute Lymphocytes (1.2-3.4) 10^3/uL 3.25 Absolute Monocytes (0.1-0.8) 10^3/uL 0.85 H Absolute Eosinophils (0.0-0.7) 10^3/uL 0.15 Absolute Basophils (0.0-0.2) 10^3/uL 0.03 Sodium (136-145) mmol/L 137 Potassium (3.5-5.1) mmol/L 4.1 Chloride (98-107) mmol/L 102 Carbon Dioxide (21.0-32.0) mmol/L 27.5 Anion Gap (3-11) mmol/L 7.5 BUN (7-18) mg/dL 27 H Creatinine (0.70-1.30) mg/dL 0.9 Est GFR (CKD-EPI 2020) (mL/min/1.73m2) 99.00 Glucose (74-106) mg/dL 116 H Calcium (8.5-10.1) mg/dL 8.9 Phosphorus (2.6-4.7) mg/dL 4.0 Magnesium (1.8-2.4) mg/dL 2.0 Total Bilirubin (0.2-1.0) mg/dL 0.3 AST (15-37) U/L 22 ALT (16-63) U/L 40 Alkaline Phosphatase (46-116) U/L 73 Creatine Kinase (39-308) U/L 62 Troponin I (<or=60) ng/L < 50 Total Protein (6.4-8.2) g/dL 7.9 Albumin (3.4-5.0) g/dL 4.1 Urine Color (Yellow) Yellow Urine Clarity (Clear) Clear Urine pH (5-8) 6.5 Ur Specific [place] (1.005-1.025) 1.015 Urine Protein (Negative) mg/dL Negative Urine Ketones (Negative) mg/dL Negative Urine Blood (Negative) Negative Urine Nitrite (Negative) Negative Urine Bilirubin (Negative) Negative Urine Urobilinogen (Up TO 0.2) EU/dL 0.2 Ur Leukocyte Esterase (Negative) Negative Urine Glucose (Negative) mg/dL Negative
== END 2021-11-06 21:29 | disposition home or self-care (01) ==
PROVIDERS: Emergency Provider Physician Assistant; PCP Nurse Practitioner Family
DX: R53.1 Weakness (principal); R11.0 Nausea; R79.89 Other specified abnormal findings of blood chemistry; I10 Essential (primary) hypertension; J44.9 Chronic obstructive pulmonary disease, unspecified; F17.210 Nicotine dependence, cigarettes, uncomplicated
CPT/HCPCS: 36415; 80053; 82550; 93005; 96361; 96374; 99284; 71045; 81003; 83735; 84100; 84484; 85025; 93010; J2405

== ENCOUNTER 2021-11-14 17:24 | Outpatient (REF) | payer MEDICAID, SELFPAY ==
[2021-11-14 20:16] LABS: Magnesium 1.5 mg/dL (1.8-2.4)
== END 2021-11-14 17:25 | disposition home or self-care (01) ==
LOC: NCHCN 17:24
PROVIDERS: PCP Nurse Practitioner Family; Visit Provider Nurse Practitioner Family
DX: E83.42 Hypomagnesemia (principal)
CPT/HCPCS: 83735

== ENCOUNTER 2021-12-25 10:19 | Emergency (ER) | payer MEDICAID, SELFPAY ==
[2021-12-25 10:27] VITALS: BP 137/73; PULSE 69; RESP 18; O2SAT 97
--- NOTE | 2021-12-25 10:44 | W.ED.GENAD ---
Discharge Plan Disposition Patient Disposition: HOME Condition: Good Discharge Details Clinical Impression: Left cervical lymphadenopathy Primary Care Provider: Padma Abrams ED Provider: Bryan Gomez Home Meds and New Rx's Prescriptions: No Action diltiazem HCl 120 mg capsule,extended release 24hr 120 mg PO DAILY aspirin 81 MG tablet,chewable 81 mg PO DAILY Qty: 30 0RF Calcium Magnesium 1 EACH tablet 1 ea PO DAILY vitamin B complex 1 EACH capsule 1 ea PO DAILY cholecalciferol (vitamin D3) [Vitamin D3] 2,000 UNIT capsule 2,000 unit PO DAILY atorvastatin 20 mg tablet 20 mg PO DAILY Spiriva with HandiHaler 18 mcg capsule, w/inhalation device 1 cap inhalation DAILY Rx Instructions: puncture 1 cap using device; one dose = 2 inhalations albuterol sulfate [ProAir HFA] 90 mcg/actuation HFA aerosol inhaler 2 inh inhalation Q6H PRN omeprazole 20 mg capsule,delayed release(DR/EC) 20 mg PO DAILY lisinopril 10 MG tablet 10 mg PO DAILY ondansetron 4 mg tablet,disintegrating 4 mg PO TID PRN (Reason: nausea and vomiting) Qty: 10 0RF Discharge Instructions Instructions: Lymphadenopathy (ED) Additional Instructions: At this time the lumps are lymph nodes. There is actually quite a few of these in the left neck. With your history of tobacco use, family history of cancer, it is important that you follow-up extremely closely with your primary care provider at your scheduled appointment at 4 PM today for further evaluation and assessment. After discussion with your PCP, it may be reasonable to have chest x-rays, and nonemergent blood work for further evaluation and delineation of this. If you notice any worsening of your symptoms, or any new symptoms such as vomiting, diarrhea, fever, chills, shortness of breath, chest pain, numbness, weakness, or fainting , please return immediately to the emergency department for reevaluation. Please follow up with your primary care provider as soon as possible for reassessment and reevaluation. As always, it was a pleasure participating in your medical care today. Referrals: Padma Abrams [Primary Care Provider] - Medical Decision Making 61-year-old male with a past medical history of cardiomyopathy, PVCs, carpal tunnel, who is a chronic smoker, who presents today for left-sided nodule and neck pain. Patient states that for the last 2 to 3 days he has noted some small lumps just under his left ear. They are painful to the touch. He denies any fever or chills. He denies any new cough. He denies any significant weight loss but does admit to a small amount of weight loss over the last few months. He denies any chest pain, vomiting, diarrhea, sore throat, he does not have any more teeth and he denies any dental caries. He denies any headache or chills. No night sweats. No other complaints at this time. Family history is positive for pancreatic cancer and lung cancer. Exam demonstrates a few lymph nodes noted in the left neck. No evidence of otitis media bilaterally, no dental caries. No crackles to suspect pneumonia. He denies any other constitutional symptoms otherwise. The lymph nodes are notably sensitive and tender. I did do a bupivacaine injection which did help improve the pain and we applied Lidoderm patch. Recommend Tylenol and Motrin warm compresses at home. That being said I am concerned for potential cancer etiology for the patient. Patient was quite dismissive about this, and does not feel concern for that or feel the need for immediate additional work-up. That being said he does have an appointment with his primary care provider. I did recommend that he follow-up closely with a PCP at his scheduled appointment today, for further discussion of potential chest x-ray imaging, and nonemergent blood work. If the patient does have continuation of his lymphadenopathy he may require antibiotics at a later date, but no indication for antibiotics at this time with no evidence of abscess or significant infection. I have extensively reviewed the treatment plan and discharge instructions with the patient and their family. I have addressed all patient concerns at this time. The patient and family was made aware of what symptoms to monitor for that would warrant a return to the emergency department. Discussed the plan with the patient and family, they demonstrate verbal understanding and agreement with our assessment and plan at this time. The documentation in this chart was dictated using [employer] dictation software. Please excuse any dictation errors. HPI General Date/Time Provider Initiated Documentation: 12/25/21 10:30. HPI Narrative: 61-year-old male with a past medical history of cardiomyopathy, PVCs, carpal tunnel, who is a chronic smoker, who presents today for left-sided nodule and neck pain. Patient states that for the last 2 to 3 days he has noted some small lumps just under his left ear. They are painful to the touch. He denies any fever or chills. He denies any new cough. He denies any significant weight loss but does admit to a small amount of weight loss over the last few months. He denies any chest pain, vomiting, diarrhea, sore throat, he does not have any more teeth and he denies any dental caries. He denies any headache or chills. No night sweats. No other complaints at this time. Family history is positive for pancreatic cancer and lung cancer. Related Data Home Medications Medication Instructions Recorded Confirmed aspirin 81 mg chewable tablet 81 mg PO DAILY #30 tab-caps 01/28/17 12/25/21 lisinopril 10 mg tablet 10 mg PO DAILY 02/19/17 12/25/21 calcium carb-Ca gluc 500 mg 1 ea PO DAILY 04/27/17 12/25/21 calcium-magnesium ox-Mg gluc 250 mg tablet (Calcium Magnesium) cholecalciferol (vitamin D3) 50 2,000 unit PO DAILY 04/30/17 12/25/21 mcg (2,000 unit) capsule (Vitamin D3) vitamin B complex 1 ea PO DAILY 04/30/17 12/25/21 albuterol sulfate 90 mcg/actuation 2 inh inhalation Q6H PRN 10/26/20 12/25/21 aerosol inhaler (ProAir HFA) atorvastatin 20 mg tablet 20 mg PO DAILY 10/26/20 12/25/21 omeprazole 20 mg capsule,delayed 20 mg PO DAILY 10/26/20 12/25/21 release tiotropium bromide 18 mcg capsule 1 cap inhalation DAILY 10/26/20 12/25/21 with inhalation device (Spiriva with HandiHaler) ondansetron 4 mg disintegrating 4 mg PO TID PRN nausea and 11/06/21 12/25/21 tablet vomiting #10 tabs diltiazem HCl 120 mg 120 mg PO DAILY 11/08/21 12/25/21 capsule,extended release 24 hr Previous Rx's Medication Instructions Recorded aspirin 81 mg chewable tablet 81 mg PO DAILY #30 tab-caps 01/28/17 ondansetron 4 mg disintegrating 4 mg PO TID PRN nausea and 11/06/21 tablet vomiting #10 tabs Allergies Allergy/AdvReac Type Severity Reaction Status Date / Time Penicillins Allergy unknown Verified 11/08/20 09:54 General Stated Complaint: GenMedical JUAN ANTONIO: 3 Review of Systems All systems reviewed & are unremarkable except as noted in HPI and below PFSH All Active Problems Left cervical lymphadenopathy (Acute) History of cardiomyopathy (Acute) Premature ventricular contractions (Acute) Chest pain (Acute) Prediabetes (Acute) Carpal tunnel syndrome on both sides (Acute) Right foot pain (Acute) Right lateral epicondylitis (Acute 10/15/16) Carpal tunnel syndrome of left wrist (Acute 07/04/15) Medical History Bradycardia Cardiomyopathy Colitis COPD (chronic obstructive pulmonary disease) GERD (gastroesophageal reflux disease) Hyperlipidemia Hypertension Neck pain Osteoarthritis Periodontal disease Pulmonary nodules Quit consuming alcohol in remote past Thoracic back pain Tobacco abuse Surgical History S/P carpal tunnel release Tonsillectomy Family History Other Cancer Diabetes Social History Smoking/Tobacco Use Status: Current every day Tobacco Type: cigarettes Smoking packs per day: 1 Smoking cigarettes per day: 20.0 Tobacco: How many years used: 45 Smoking risk assessment performed?: Yes Alcohol Intake: former Year quit: 2017 Drug use: Daily Substance use type: marijuana Household members: spouse Housing: house Number of Children: 5 number of grandchildren: 9 current occupation: [employer] Pets and animals: Yes Pets and animals: cat(s) What is your relationship status?: Panel score (0-1 are the most socially isolated patients): 1 Seatbelt use: sometimes Do you feel safe at home: Yes Do you feel safe in your relationship?: Yes Exam Narrative Exam Narrative: 1.Const: Well-nourished, Well-developed, appearing stated age 2.Eyes: PERRL, no conjunctival injection, and symmetrical lids. 3.ENT: Atraumatic external nose and ears. Moist MM. Neck: Symmetric, trachea midline, No thyromegaly. Left neck demonstrates a few lymph nodes noted in the left cervical chain, particularly the anterior cervical chain. No fluctuance. Noncompressible. No associated redness. US Color-flow shows no evidence of significant blood flow. Going inferiorly down the cervical chain there are other lymph nodes that are noted but they are slightly smaller in size. 4.CVS: +S1/S2, No murmurs or gallops. Peripheral pulses 2+ and equal in all extremities. Brisk capillary refill in all extremities. 5.RESP: Unlabored respiratory effort. Clear to auscultation bilaterally. No wheezes rales or rhonchi 6.GI: Soft, Nontender/Nondistended, No hepatosplenomegaly. No guarding or rebound. 7.MSK: Normocephalic/Atraumatic, Extremities w/o deformity or ttp No cyanosis or clubbing, Normal movement of all extremities 8.Skin: Warm, Dry. No rashes or lesions. 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 Sensation grossly intact, no focal neurologic deficits. 10.Psych: (AAO) x3. Appropriate mood and affect Course Vital Signs Vital signs: Vital Signs Pulse 69 12/25/21 10:27 Respiratory Rate 18 12/25/21 10:27 Blood Pressure 137/73 12/25/21 10:27 Pulse Oximetry 97 12/25/21 10:27 Temperature Source Temporal Artery Scan 12/25/21 10:27 Pulse 69 12/25/21 10:27 Respiratory Rate 18 12/25/21 10:27 Respiratory Effort Non-Labored 12/25/21 10:30 Blood Pressure 137/73 12/25/21 10:27 Blood Pressure Position Sitting 12/25/21 10:27 Pulse Oximetry 97 12/25/21 10:27 Oxygen Delivery Method Room Air 12/25/21 10:27 Oxygen Flow Rate 0 12/25/21 10:27 Pain Level 6 12/25/21 10:27
[2021-12-25 10:45] VITALS: BP 130/78; PULSE 71; RESP 18; RESP 20; TEMP 37; O2SAT 99
[2021-12-25] MEDS: Lidocaine 5% Patch 1 PATCH (10:45)
== END 2021-12-25 10:50 | disposition home or self-care (01) ==
PROVIDERS: Emergency Provider Student in an Organized Health Care Education/Training Program; PCP Nurse Practitioner Family
DX: R59.0 Localized enlarged lymph nodes (principal); F17.210 Nicotine dependence, cigarettes, uncomplicated
CPT/HCPCS: 99283; 99282

== ENCOUNTER 2021-12-27 11:49 | Emergency (ER) | payer MEDICAID, SELFPAY ==
[2021-12-27 11:53] VITALS: BP 141/90; PULSE 82; RESP 20; TEMP 37.1; O2SAT 99
[2021-12-27 11:59] VITALS: RESP 20
--- NOTE | 2021-12-27 12:14 | DI.CT_ITS ---
Exam(s) CT HEAD NECK W EXAM: CT HEAD NECK W CLINICAL HISTORY: left lymphadenopathy cervical pre-postauricular. TECHNIQUE: Imaging Protocol: Axial computed tomography images with coronal and sagittal reformatted images were created and reviewed. CONTRAST MATERIAL: Intravenous: Contrast Contrast volume:structured data in mlmL COMPARISON: CT CTA BRAIN AND NECK from 07/16/2016 FINDINGS: Orbits and orbital soft tissues: Within normal limits. Visualized paranasal sinuses: Within normal limits. Nasopharynx: Within normal limits. Oropharynx: Within normal limits. Hypopharynx: Within normal limits. Larynx: Within normal limits. Retropharyngeal space: Within normal limits. Parotids/submandibular: Within normal limits. Thyroid gland: Within normal limits. Lymphadenopathy: There is scattered lymph nodes seen along the level one to level three all measurin g less than 8 mm in short axis diameter which are physiologic in nature. Trachea: Within normal limits. Lung apices: Peripheral cysts are seen in the lung apices. This may represent mild paraseptal emphy sematous change. Bones: Within normal limits for the patient's age. Carotids/Jugular: Within normal limits. Soft tissues: There is a single 1.5 x 1.6 cm peripherally enhancing mass inferior to the ear and po sterior to the parotid gland. There is decreased attenuation centrally consistent with fluid. It li es just anterior to the left sternocleidomastoid muscle. There are no fat plane seen between either the parotid or the sternocleidomastoid muscle. There is mild infiltration of the overlying soft tiss ues. Ventricles and Extra axial spaces: Normal in size and morphology for the patient's age. Hemorrhage: None. Cerebral parenchyma: Normal. Enhancement: No suspicious enhancement. [place] of [place]: Unremarkable. Midline shift: None. Brainstem/Cerebellum: Normal. Calvarium: Normal. Visualized Paranasal sinuses/Mastoids: Clear. IMPRESSION: 1. Unremarkable CT head. 2. 1.5 x 1.6 cm peripherally enhancing fluid collection posterior and inferior to the ear as describe d above. There is surrounding infiltration of the soft tissues. This may represent a small abscess. Necrotic lymph node cannot be excluded. If the lesion persists following treatment, biopsy may be considered. 3. Findings were discussed with Cezar Cristina at 1:35 p.m. on 12/27/2021. RADIATION DOSE DELIVERED: 2,302.5mGy.cm Total DLP 2,302.5mGy.cm Total DLP DATA REPOSITORY: All CT scans at this facility are submitted to the National Radiology Data Registry (NRDR) Dose Index Registry (DIR) with the [employer] (A[employer]). RADIATION OPTIMIZATION: All CT scans at this facility use at least one of these dose optimization te chniques: automated exposure control; mA and/or kV adjustment per patient size (includes targeted exa ms where dose is matched to clinical indication); or iterative reconstruction.
[2021-12-27] MEDS: Ketorolac 30 MG/ML VIAL IVP (12:28)
[2021-12-27] MEDS: Normal Saline Flush 10 ML SYR IVP ×2 (12:29→15:12)
[2021-12-27 12:35] LABS: Abs Immature Grans 0.05 10^3/uL (0.0-0.06); Absolute Basophil Count 0.04 10^3/uL (0.0-0.2); Absolute Eosinophil Count 0.02 10^3/uL (0.0-0.7); Absolute Lymphocyte Count 1.98 10^3/uL (1.2-3.4); Absolute Monocyte Count 1.56 10^3/uL (0.1-0.8); Absolute Neutrophil Count 8.09 10^3/uL (1.2-6.7); Basophils % 0.3; Eosinophils % 0.2; HCT 45.9 % (40.0-50.0); HGB 15.7 g/dL (13.5-17.5); Immature Grans % 0.4; Lymphocytes % 16.9; MCH 31.6 pg (27.0-33.0); MCHC 34.2 % (32.0-36.0); MCV 92 fL (80-95); MPV 9.7 fL (8.0-11.0); Monocytes % 13.3; Neutrophils % 68.9; Platelet Count 203 10^3/uL (130-400); RBC 4.97 10^6/uL (4.36-5.78); RDW-SD 41.1 fL; WBC 11.74 10^3/uL (4.4-10.8)
[2021-12-27 12:51] LABS: ALT 33 U/L (16-63); AST 22 U/L (15-37); Alkaline Phosphatase 82 U/L (46-116); Anion Gap 6.2 mmol/L (3-11); BUN 15 mg/dL (7-18); Bilirubin, Total 0.4 mg/dL (0.2-1.0); CO2 28.8 mmol/L (21.0-32.0); CREATININE 1.1 mg/dL (0.70-1.30); Calcium 9.4 mg/dL (8.5-10.1); Chloride 98 mmol/L (98-107); Estimated GFR 77.33 (mL/min/1.73m2); Glucose 118 mg/dL (74-106); Magnesium 1.8 mg/dL (1.8-2.4); Potassium 4.1 mmol/L (3.5-5.1); Sodium 133 mmol/L (136-145); Total Protein 8.2 g/dL (6.4-8.2)
--- NOTE | 2021-12-27 12:51 | ED.GENADUL_ITS ---
Discharge Plan Disposition Patient Disposition: HOME Condition: Stable Discharge Details Clinical Impression: Abscess of lymph node of neck Primary Care Provider: Padma Abrams ED Provider: Kimberly Sanchez Home Meds and New Rx's Prescriptions: New cephalexin 500 mg tablet 500 mg PO BID 10 Days Qty: 20 0RF metronidazole 500 mg tablet 500 mg PO BID 10 Days Qty: 20 0RF Rx Instructions: Take one tablet twice daily x 10 days Continued aspirin 81 MG tablet,chewable 81 mg PO DAILY Qty: 30 0RF Calcium Magnesium 1 EACH tablet 1 ea PO DAILY vitamin B complex 1 EACH capsule 1 ea PO DAILY cholecalciferol (vitamin D3) [Vitamin D3] 2,000 UNIT capsule 2,000 unit PO DAILY atorvastatin 20 mg tablet 20 mg PO DAILY Spiriva with HandiHaler 18 mcg capsule, w/inhalation device 1 cap inhalation DAILY PRN Rx Instructions: puncture 1 cap using device; one dose = 2 inhalations albuterol sulfate [ProAir HFA] 90 mcg/actuation HFA aerosol inhaler 2 inh inhalation Q6H PRN lisinopril 10 MG tablet 10 mg PO DAILY ondansetron 4 mg tablet,disintegrating 4 mg PO TID PRN (Reason: nausea and vomiting) Qty: 10 0RF Discharge Instructions Instructions: Abscess (ED) Additional Instructions: *Please take the antibiotics as directed. Take the antibiotics with food, yogurt or probiotic. I did speak with research & insights executive at [facility] and they want to see you in their clinic within the week. Please take Tylenol or Ibuprofen with food every 4-6 hours as needed for pain and swelling. If you feel sicker at any time please present to the ER. I do however recommend that you be seen at [facility] where there is ENT on-call. However if you are unable to get to the [facility] please return to our ER. Follow up with primary care provider in 3-5 days. Return to ED sooner if any worsening or concerns. Increase oral fluids. Stand Alone Forms: Work Release Referrals: [facility] [Outside] - 1 week (Follow up with ENT in 1 week) Discharge Data Discharge Date/Time-TO BE ENTERED AT DEPARTURE: 12/27/21 17:10 Medical Decision Making <Cezar Cristina NP - Last Filed: 12/28/21 08:14> Patient presenting to the emergency department for chief complaint of swollen lymph node on the left side of his neck. He states radiating pain to both the anterior and posterior aspects of the ear and up into his head. He does state over the past 24 hours or so he has developed a fever with the highest being 101. He is controlled this using acetaminophen. He denies any pain with swallowing but does state some abnormal feeling with swallowing. Physical exam shows significant swelling and tenderness along with warmth to palpation of the left submandibular area just at the angle of the jaw with associated tenderness to both the anterior and posterior aspects of the ear. Patient does state discomfort with rotation of head and neck but no inability. Patient has no nuchal rigidity and HEENT exam is otherwise unremarkable. Worried about potential cancerous versus infectious etiology to the swollen lymph node. We will plan on checking labs and performing CT imaging. Pending results we will give patient ketorolac for pain. Reviewed patient's labs that does show a elevated WBC along with high neutrophils and monocytes. CMP is overall unremarkable nondiagnostic. Reviewed CT imaging with radiologist which shows a single 1.5 x 1.6 cm peripherally enhancing mass inferior to the ear and posterior to the parotid gland. There is decreased attenuation centrally consistent with fluid. It lies just anterior to the left sternocleidomastoid muscle. There are no fat plane seen between either the parotid or the sternocleidomastoid muscle. There is mild infiltration of the overlying soft tissues. Given this finding I will start patient on antibiotics and give steroid. Patient started on Flagyl and ceftriaxone due to unknown penicillin allergy as a child. Discussed with patient risk of ceftriaxone given penicillin allergy which he said he was agreeable to starting this medication. I did consult with general surgery who stated that he would recommend ENT consultation given location of fluid collection. No local ENT is available so we will call [facility] for consultation. Imaging Data Radiologic Study: Attestation: I personally reviewed and interpreted this imaging study as follows: Imaging: CT Scan Radiologist's impression: FINDINGS: Orbits and orbital soft tissues: Within normal limits. Visualized paranasal sinuses: Within normal limits. Nasopharynx: Within normal limits. Oropharynx: Within normal limits. Hypopharynx: Within normal limits. Larynx: Within normal limits. Retropharyngeal space: Within normal limits. Parotids/submandibular: Within normal limits. Thyroid gland: Within normal limits. Lymphadenopathy: There is scattered lymph nodes seen along the level one to level three all measuring less than 8 mm in short axis diameter which are physiologic in nature. Trachea: Within normal limits. Lung apices: Peripheral cysts are seen in the lung apices. This may represent mild paraseptal emphysematous change. Bones: Within normal limits for the patient's age. Carotids/Jugular: Within normal limits. Soft tissues: There is a single 1.5 x 1.6 cm peripherally enhancing mass inferior to the ear and posterior to the parotid gland. There is decreased attenuation centrally consistent with fluid. It lies just anterior to the left sternocleidomastoid muscle. There are no fat plane seen between either the parotid or the sternocleidomastoid muscle. There is mild infiltration of the overlying soft tissues. Ventricles and Extra axial spaces: Normal in size and morphology for the patient's age. Hemorrhage: None. Cerebral parenchyma: Normal. Enhancement: No suspicious enhancement. [place] of [place]: Unremarkable. Midline shift: None. Brainstem/Cerebellum: Normal. Calvarium: Normal. Visualized Paranasal sinuses/Mastoids: Clear. IMPRESSION: 1. Unremarkable CT head. 2. 1.5 x 1.6 cm peripherally enhancing fluid collection posterior and inferior to the ear as described above. There is surrounding infiltration of the soft tissues. This may represent a small abscess. Necrotic lymph node cannot be excluded. If the lesion persists following treatment, biopsy may be considered. 3. Findings were discussed with Cezar Cristina at 1:35 p.m. on 12/27/2021. <Kimberly Sanchez NP - Last Filed: 12/27/21 18:36> Medical Records Medical records reviewed: Yes I reviewed the patient's medical records. Medical records narrative: 1549: SJ: Care assumed from provider (Max Cristina NP) Please see their initial HPI, PE, and documentation. Discussed patient details and case and pending workup and disposition. Patient is hemodynamically stable, and alert and oriented. At the time of signout awaiting ENT consultation at [facility] for recommendations for intervention versus follow-up. 1625: Spoke with Dr. Wong with ENT she is concerned regarding possible necrotic lymph node and developing abscess, she will call me back after discussing with her attending. 1649: Spoke again with Dr. Harris she recommends antibiotics and follow up in clinic within the week. Will DC patient with Flagyl, and Cephalexin and instructions to follow up with ENT at [facility] and they should call him for an apppointment. Discussed plan of care and follow-up with patient and family who verbalized understanding. he remained hemodynamically stable throughout the remainder stay. This text was generated using [employer] dictation system, please disregard any oddities of phrase or misspellings. HPI <Cezar Cristina NP - Last Filed: 12/28/21 08:14> General Mode of arrival: ambulatory . Date/Time Provider Initiated Documentation: 12/27/21 11:50 . Limitations to Documentation: no limitations . Information obtained by: patient, family, RN notes reviewed and old records reviewed . History of Present Illness 61 year old M presents to the emergency department with the chief complaint of left neck swelling and pain , described as severe, with intensity rated at 8. Quality is described as sharp, and is localized to the head, neck and left. Patient started experiencing this day(s) (5) and it has been constant. No relieving factors improve symptom(s), No exacerbating factors reported . Patient notes fever/chills. Patient did receive the following treatments prior to arrival, NSAID Related Data Home Medications Medication Instructions Recorded Confirmed aspirin 81 mg chewable tablet 81 mg PO DAILY #30 tab-caps 01/28/17 12/27/21 lisinopril 10 mg tablet 10 mg PO DAILY 02/19/17 12/27/21 calcium carb-Ca gluc 500 mg 1 ea PO DAILY 04/27/17 12/27/21 calcium-magnesium ox-Mg gluc 250 mg tablet (Calcium Magnesium) cholecalciferol (vitamin D3) 50 2,000 unit PO DAILY 04/30/17 12/27/21 mcg (2,000 unit) capsule (Vitamin D3) vitamin B complex 1 ea PO DAILY 04/30/17 12/27/21 albuterol sulfate 90 mcg/actuation 2 inh inhalation Q6H PRN 10/26/20 12/27/21 aerosol inhaler (ProAir HFA) atorvastatin 20 mg tablet 20 mg PO DAILY 10/26/20 12/27/21 tiotropium bromide 18 mcg capsule 1 cap inhalation DAILY PRN 10/26/20 12/27/21 with inhalation device (Spiriva with HandiHaler) ondansetron 4 mg disintegrating 4 mg PO TID PRN nausea and 11/06/21 12/27/21 tablet vomiting #10 tabs cephalexin 500 mg tablet 500 mg PO BID 10 days #20 tabs 12/27/21 metronidazole 500 mg tablet 500 mg PO BID 10 days #20 tabs 12/27/21 Previous Rx's Medication Instructions Recorded aspirin 81 mg chewable tablet 81 mg PO DAILY #30 tab-caps 01/28/17 ondansetron 4 mg disintegrating 4 mg PO TID PRN nausea and 11/06/21 tablet vomiting #10 tabs cephalexin 500 mg tablet 500 mg PO BID 10 days #20 tabs 12/27/21 metronidazole 500 mg tablet 500 mg PO BID 10 days #20 tabs 12/27/21 Allergies Allergy/AdvReac Type Severity Reaction Status Date / Time Penicillins Allergy unknown Verified 12/27/21 12:31 General Stated Complaint: GenMedical JUAN ANTONIO: 3 Review of Systems <Cezar Cristina NP - Last Filed: 12/28/21 08:14> Constitutional Constitutional: Reports chills, Reports fever(s), Reports headache(s) and Reports malaise Eyes Eyes: Reports system reviewed and no additional complaints, except as documented ENT Ears, Nose, Mouth, and Throat: Denies dizziness, Denies ear discharge, Reports otalgia, Denies facial pain, Reports headache(s), Denies nasal congestion, Reports neck mass, Reports neck pain, Reports odynophagia and Denies sore throat Cardiovascular Cardiovascular: Denies chest pain and Denies dyspnea Respiratory Respiratory: Denies cough and Denies dyspnea Gastrointestinal Gastrointestinal: Denies abdominal pain and Reports odynophagia Musculoskeletal Musculoskeletal: Denies back pain, Denies myalgias and Reports neck pain Integumentary/Breasts Skin/Breast: Denies rash Neurologic Neurologic: Denies dizziness, Reports headache(s) and Denies other visual disturbances Hematologic/Lymphatic Hematologic/Lymphatic: Reports as per HPI and Reports lymphadenopathy PFSH <Cezar Cristina NP - Last Filed: 12/28/21 08:14> All Active Problems (Updated 12/27/21 @ 16:57 by Kimberly Sanchez NP) Left cervical lymphadenopathy (Acute) Abscess of lymph node of neck (Acute) History of cardiomyopathy (Acute) Premature ventricular contractions (Acute) Chest pain (Acute) Prediabetes (Acute) Carpal tunnel syndrome on both sides (Acute) Right foot pain (Acute) Right lateral epicondylitis (Acute 10/15/16) Carpal tunnel syndrome of left wrist (Acute 07/04/15) Medical History Bradycardia Cardiomyopathy Colitis COPD (chronic obstructive pulmonary disease) GERD (gastroesophageal reflux disease) Hyperlipidemia Hypertension Neck pain Osteoarthritis Periodontal disease Pulmonary nodules Quit consuming alcohol in remote past Thoracic back pain Tobacco abuse Surgical History S/P carpal tunnel release Tonsillectomy Family History Other Cancer Diabetes Social History Smoking/Tobacco Use Status: Current every day Tobacco Type: cigarettes Smoking packs per day: 1 Smoking cigarettes per day: 20.0 Tobacco: How many years used: 45 Smoking risk assessment performed?: Yes Alcohol Intake: former Year quit: 2016 Drug use: Daily Substance use type: marijuana Household members: spouse Housing: house Number of Children: 5 number of grandchildren: 9 current occupation: [employer] Pets and animals: Yes Pets and animals: cat(s) What is your relationship status?: Panel score (0-1 are the most socially isolated patients): 1 Seatbelt use: sometimes Do you feel safe at home: Yes Do you feel safe in your relationship?: Yes Exam <Cezar Cristina NP - Last Filed: 12/28/21 08:14> Const General: cooperative and no acute distress Orientation: alert, awake and oriented x3 HENMT Head: normal to inspection and normocephalic Ears: hearing grossly normal bilaterally, external ears normal and TM's normal bilaterally General nose exam: external nose normal Mouth: oral mucosae normal, lip normal, tongue normal, moist mucous membranes, no audible dysphonia, no muffled voice and salivary duct abnormal Teeth and gingiva: edentulous Throat: posterior oropharynx normal Neck Neck: lymphadenopathy left submandibular hard, warm and tender Resp Effort & Inspection: normal respiratory effort, able to speak in complete sentences and no respiratory distress Cardio Rate: regular rate Rhythm: regular rhythm Skin General skin exam: no rashes or lesions noted Neuro General: patient alert, patient awake, patient oriented x3, moves all extremities and no focal motor deficits Sensory Exam: no sensory deficits noted Course <Cezar Cristina NP - Last Filed: 12/28/21 08:14> Vital Signs Vital signs: Vital Signs Temperature 37.1 C 12/27/21 11:53 Pulse 82 12/27/21 11:53 Respiratory Rate 20 12/27/21 11:53 Blood Pressure 141/90 H 12/27/21 11:53 Pulse Oximetry 99 12/27/21 11:53 Temperature 37.1 C 12/27/21 11:53 Temperature Source Temporal Artery Scan 12/27/21 11:53 Pulse 82 12/27/21 11:53 Respiratory Rate 20 12/27/21 11:59 Respiratory Effort Non-Labored 12/27/21 11:59 Respiratory Depth Normal 12/27/21 11:59 Respiratory Pattern Normal 12/27/21 11:59 Blood Pressure 141/90 H 12/27/21 11:53 Blood Pressure Position Sitting 12/27/21 11:53 Pulse Oximetry 99 12/27/21 11:53 Oxygen Delivery Method Room Air 12/27/21 11:53 Oxygen Flow Rate 0 12/27/21 11:53 Pain Level 8 12/27/21 12:28 Sign Out <Cezar Cristina NP - Last Filed: 12/28/21 08:14> Sign Out Data: Sign Out Comment: Patient signed out pending ENT consultation due to fluid collection inferior and posterior to the left ear. Last updated by Cezar Cristina NP at 12/27/21 15:34
[2021-12-27 12:58] LABS: Diff Comment Agrees w/ Instrument; RBC Morphology Normal
[2021-12-27] MEDS: Omnipaque 350 MG/ML 100 ML BTL IJ (13:04)
--- NOTE | 2021-12-27 13:14 | DI.RAD_ITS ---
Exam(s) XR CHEST 2V PA LATERAL EXAM: XR CHEST 2V PA LATERAL CLINICAL HISTORY: Left-sided cervical lymphadenopathy TECHNIQUE: 2D digital imaging was performed of the chest. Three images were obtained. PA and later al views were obtained. COMPARISON: CR XR CHEST 2V PA LATERAL from 02/07/2020 FINDINGS: MEDIASTINUM: Normal. HEART: Normal. PULMONARY VASCULATURE: Normal. LUNGS: Clear. PLEURAL SPACE: No pleural effusion or pneumothorax. BONE:Within normal limits for the patient's age. OTHER FINDINGS:Normal. IMPRESSION: No acute pulmonary findings. DATA REPOSITORY: RADIATION DOSE DELIVERED:
[2021-12-27] MEDS: cefTRIAXone 1 GM/50 ML BAG IVPB (15:11)
[2021-12-27] MEDS: metroNIDAZOLE 500 MG/100 ML BAG 100 MG IVPB (15:12)
[2021-12-27] MEDS: Dexamethasone 10 MG/ML VIAL IVP (15:12)
== END 2021-12-27 17:10 | disposition home or self-care (01) ==
PROVIDERS: Nurse Practitioner Family; Emergency Provider Registered Nurse Emergency; PCP Nurse Practitioner Family
DX: L04.0 Acute lymphadenitis of face, head and neck (principal); D72.829 Elevated white blood cell count, unspecified; I10 Essential (primary) hypertension; J44.9 Chronic obstructive pulmonary disease, unspecified
CPT/HCPCS: 36415; 70491; 80053; 96365; 96368; 96375; 99285; 70460; 71046; 83735; 85025; 99284; J0696; J1100; J1885; J3490

== ENCOUNTER 2022-01-01 17:46 | Outpatient (REF) | payer MEDICAID, SELFPAY ==
[2022-01-01 15:50] LABS: Magnesium 1.9 mg/dL (1.8-2.4)
== END 2022-01-01 17:47 | disposition home or self-care (01) ==
LOC: NCHCN 17:46
PROVIDERS: PCP Nurse Practitioner Family; Visit Provider Nurse Practitioner Family
DX: E83.42 Hypomagnesemia (principal)
CPT/HCPCS: 83735

== ENCOUNTER 2022-06-09 00:20 | Outpatient (CLI) | payer MEDICAID, SELFPAY ==
--- NOTE | 2022-06-09 10:20 | DI.CTLCSR_ITS ---
Exam(s) CT CHEST LUNG CANCER SCREEN EXAM: CT CHEST LUNG CANCER SCREEN CLINICAL HISTORY: SMOKER F17.210 SCREENING FOR LUNG CANCER TECHNIQUE: Imaging Protocol: Axial computed tomography images with coronal and sagittal reformatted images were created and reviewed COMPARISON: CT CT CHEST LUNG CANCER SCREEN from 05/13/2021 FINDINGS: Tracheobronchial tree: Patent where visualized. Pulmonary parenchyma: Mild emphysematous changes are present in the lungs. No architectural distorti on. Lung Nodules: None. Mediastinum and Nohelia: No dominant adenopathy or fluid collection. The esophagus is unremarkable. Thyroid gland: Unremarkable. Lymph nodes: Unremarkable. Pleura: No effusion or pneumothorax. Heart: The heart is not dilated. No coronary artery calcifications are seen. No pericardial effusion . Aorta: Thoracic aorta non-dilated. Upper abdomen: Unremarkable. Soft Tissues: Unremarkable. Bones: Within normal limits. IMPRESSION: No pulmonary nodules. Lung RADS Cat 1 - Negative: No nodules and definitely benign nodules Lung-RADS 1.0 CATEGORIES: Category 0 - Prior chest CT exam(s) being located for comparison. Category 1 - Annual screening in 12 months. No nodules or definitely benign nodules. Category 2 - Annual screening in 12 months. Benign appearance. Nodules with low likelihood of becomin g active cancer. Category 3 - 6-month follow-up. Probably benign. Short-term follow-up suggested. Nodules with low lik elihood of becoming active cancer. Category 4A - 3-month follow-up and CT/PET if >8 mm in size. Suspicious finding. Findings which requi re additional testing. Category 4B - Findings which require additional testing and tissue sampling. Suspicious finding. Category 4X - Category 3 or 4 nodules with additional features or imaging findings that increases the suspicion of malignancy. Modifier S- Potentially clinically significant finding. (Non lung cancer) RADIATION DOSE DELIVERED: 83.52mGy.cm Total DLP 83.52mGy.cmTotal DLP DATA REPOSITORY: All CT scans at this facility are submitted to the National Radiology Data Registry (NRDR) Dose Index Registry (DIR) with the [employer] (ACR). RADIATION OPTIMIZATION: All CT scans at this facility use at least one of these dose optimization te chniques: automated exposure control; mA and/or kV adjustment per patient size (includes targeted exa ms where dose is matched to clinical indication); or iterative reconstruction.
== END 2022-06-09 00:40 ==
LOC: DI 00:20
PROVIDERS: PCP Nurse Practitioner Family; Visit Provider Nurse Practitioner Family
DX: F17.210 Nicotine dependence, cigarettes, uncomplicated (principal)
CPT/HCPCS: 71271

== ENCOUNTER 2022-10-09 11:20 | Outpatient (REF) | payer MEDICAID, SELFPAY ==
[2022-10-09 16:17] LABS: Hemoglobin A1C 5.7 % (<5.7)
[2022-10-09 16:47] LABS: Anion Gap 7.9 mmol/L (3-11); BUN 19 mg/dL (7-18); CO2 27.1 mmol/L (21.0-32.0); Calcium 9.3 mg/dL (8.5-10.1); Calculated LDL 92 mg/dL (<100); Chloride 103 mmol/L (98-107); Cholesterol 165 mg/dL (<200); Glucose 114 mg/dL (74-106); HDL Cholesterol 57 mg/dL (40-60); Magnesium 1.9 mg/dL (1.8-2.4); Potassium 4.5 mmol/L (3.5-5.1); Sodium 138 mmol/L (136-145); TSH (W/Ref FT4) 1.36 uIU/mL (0.36-3.74); Triglyceride 81 mg/dL (<150)
== END 2022-10-09 11:21 | disposition home or self-care (01) ==
LOC: NCHCN 11:20
PROVIDERS: PCP Nurse Practitioner Family; Visit Provider Nurse Practitioner Family
DX: E83.42 Hypomagnesemia (principal); R73.03 Prediabetes; I10 Essential (primary) hypertension; E78.5 Hyperlipidemia, unspecified; R07.9 Chest pain, unspecified; K30 Functional dyspepsia; I42.9 Cardiomyopathy, unspecified
CPT/HCPCS: 80048; 80061; 83036; 83735; 84443

== ENCOUNTER → 2022-10-21 00:49 | Outpatient (CLI) | payer MEDICAID, SELFPAY ==
--- NOTE | 2022-10-21 08:00 | ETT_ITS ---
APPROVED REPORT Exam: Exercise Treadmill Patient Location: Out-Patient Room/Bed: Stress Nurse: Joyce Tee RN Ordering Provider:LAUREN SANCHEZ, Contact Number: [phone] BMI: 20.74 Baseline Rhythm: Sinus Bradycardia Comment: Occasional PVC's Indications: Chest pain Medical History Medical History: HTN, HLD, cardiomyopathy, prediabetes, ventricular ectopy, COPD, tobacco use Cardiac Medications: Aspirin, diltiazem, atorvastatin, lisinopril Allergies: Penicillin Cardiac Risk Factors: HTN, HLD, CVD, COPD, Prediabetes, smoker Previous Cardiac Procedures: None Pretest Chest Pain Characteristics: None Exercise History: Physically active Physical Disabilities: None Lung Sounds: Clear to auscultation Heart Sounds: Regular Stress Test Details Test: Exercise stress testing was performed using a Johny protocol. Rest Stress HR Resting HR Supine: 55 bpm Max Heart Rate (APMHR): 161 bpm Resting HR Standin bpm Target HR (85% APMHR): 137 bpm Max HR Achieved: 148 bpm % of APMHR: 92 Recovery HR: 66 bpm HR response to stress: Normal HR response to stress BP Resting BP Supine: 126/76 mmHg Resting BP Standin/86 mmHg Max BP: 162/78 mmHg Recovery BP: 125/78 mmHg BP response to stress: Normal blood pressure response to stress. ECG Resting ECG: Sinus Bradycardia Ectopy: OCcasional PVC's Stress ECG: Sinus Tachycardia ST Change: No significant ST segment changes noted Arrhythmia: Occasional PVCs Recovery ECG: Sinus Rhythm Recovery ST Change: No significant ST segment changes noted Recovery Arrhythmia: Occasional PVC's, couplets Clinical Reason for Termination: Fatigue, Target HR Achieved Stress Symptoms: General Fatigue Exercise duration: 08 min31 sec Highest Stage Reached: Stage 3: 3.4 mph at 14% grade. Exercise capacity: 10.61 METs Angina Score: None Rate Pressure Product: [id number] Stress ECG Conclusion 1. Resting electrocardiogram was within normal limits 2. Patient exercised on the Johny protocol and completed a workload of 10.61 METS, limited by fatigue 3. Normal heart rate and blood pressure response to exercise. Patient achieved 92% of maximal predic isaias for age 4. There was no electrocardiographic evidence of myocardial ischemia 5. There were no significant dysrhythmias Stress Test Summary STAGE Time (mins) Speed (mph) Grade (%) HR BP SpO2 SYMPTOMS METS Supine 55 126/76 94 Standing 65 120/86 1 3 1.7 10 110 138/76 4.5 2 6 2.5 12 109 144/78 7 3 9 3.4 14 145 10 1 min recovery 119 162/78 3 min recovery 78 125/78 6 min recovery 66 120/70
== END ==
PROVIDERS: PCP Nurse Practitioner Family; Visit Provider Nurse Practitioner Family
DX: R07.9 Chest pain, unspecified (principal)
CPT/HCPCS: 93017

== ENCOUNTER 2022-10-21 08:37 | Outpatient (CLI) | payer MEDICAID, SELFPAY | END 2022-10-21 08:38 | disposition home or self-care (01) | PROVIDERS: PCP Nurse Practitioner Family; Visit Provider Nurse Practitioner Family | DX: R07.9 Chest pain, unspecified (principal) | CPT/HCPCS: 93246 ==

== ENCOUNTER 2022-11-27 08:03 | Outpatient (CLI) | payer MEDICAID, SELFPAY ==
--- NOTE | 2022-11-27 09:06 | W.CARDEVENT ---
Date of service: 11/27/22 Time of Service: 09:06 Cardiac Event Recorder Referring Provider:: Padma Abrams Indications:: Atrial fibrillation and flutter Cardiac Event Note: This is a 14-day cardiac event monitor. Patient was monitored for a total of 10 days and 18 hours Predominant rhythm was sinus. Average heart rate was 73. Minimum was 41, maximum 149 There were occasional ventricular ectopic beats. There were several brief runs of nonsustained ventricular tachycardia. Some episodes labeled nonsustained ventricular tachycardia appeared to be SVT with aberrancy There were rare atrial premature beats. There were several self-limited atrial runs. The longest of these was 17 beats in duration Patient's symptoms were reported which correlated to sinus rhythm There was no atrial fibrillation, no high-grade AV block, no pauses greater than 3 seconds
== END 2022-11-27 08:04 | disposition home or self-care (01) ==
LOC: CARDOPNVT 08:03
PROVIDERS: PCP Nurse Practitioner Family; Visit Provider Internal Medicine Cardiovascular Disease
DX: I48.91 Unspecified atrial fibrillation (principal); I48.92 Unspecified atrial flutter; I47.20 Ventricular tachycardia, unspecified

== ENCOUNTER 2023-06-29 09:01 | Day surgery (SDC) | payer MEDICAID, SELFPAY ==
--- NOTE | 2023-06-28 15:35 | W.PM.DSUDISC ---
Date of service: 06/29/23 Time of Service: 11:24 Discharge Plan Disposition Patient Disposition: Home Condition: Good Discharge Details Reason For Visit: screening colonoscopy Attending Provider: Moshe Soliz Primary Care Provider: Padma Abrams Home Meds and New Rx's Prescriptions: Continued Centrum Silver 0.4 mg-300 mcg- 250 mcg tablet 1 tab PO DAILY ascorbate calcium (vitamin C) 500 mg tablet 500 mg PO DAILY aspirin 81 MG tablet,chewable 81 mg PO DAILY Qty: 30 0RF Calcium Magnesium 1 EACH tablet 1 ea PO DAILY cholecalciferol (vitamin D3) [Vitamin D3] 2,000 UNIT capsule 2,000 unit PO DAILY atorvastatin 20 mg tablet 20 mg PO DAILY tiotropium bromide [Spiriva with HandiHaler] 18 mcg capsule, w/inhalation device 1 cap inhalation DAILY PRN Rx Instructions: puncture 1 cap using device; one dose = 2 inhalations albuterol sulfate [ProAir HFA] 90 mcg/actuation HFA aerosol inhaler 2 inh inhalation Q6H PRN lisinopril 10 mg tablet 20 mg PO DAILY Discontinued bisacodyl [Dulcolax (bisacodyl)] 5 mg tablet,delayed release (DR/EC) 5 mg PO ONCE Qty: 4 0RF Rx Instructions: Take per colonoscopy instructions provided by ordering providers office polyethylene glycol 3350 17 gram/dose powder 17 g PO ONCE Qty: 238 0RF Rx Instructions: Take per colonoscopy instructions provided by ordering providers office Discharge Instructions Instructions: Colorectal Polyps (GEN) Additional Instructions: Jeremy, we are able to complete your colonoscopy today without any issues. I did find 1 polyp. It was medium in size, but was removed without any difficulty. Like we talked about beforehand, this polyp was sent off for testing. Once I know the nature of the polyp, we will be in touch with recommendations for the timing of your next colonoscopy. If you have any questions at all in the meantime, please do not hesitate to call or ask. 1. If tolerated, consume a soft, low fiber diet for 1-2 days. 2[address] Do not drive, drink alcohol, operate machinery, make critical decisions, or do activities that require coordination or balance for 24 hours. 3. Because air was put into your colon during the procedure, expelling air from your rectum (passing gas or farting) is normal. 4. You may not have a bowel movement for 1-3 days because of the colonoscopy prep. This is normal. 5. Go directly to the emergency room if you notice any of the following: Develop chills (warm to touch), or if you have a thermometer and your temperature is above 101 Difficulty breathing or difficultly swallowing Persistent vomiting Severe abdominal pain, other than gas cramps Severe chest pain Black, tarry stools Any bleeding ? exceeding one tablespoon 6. Call your physician if the site where your intravenous was started becomes red, swollen, painful, and warm to touch. 7. Your physician has reviewed your pre-procedure medications. Please continue to take those medications as previously ordered. You will be given specific information/education regarding any changes to your medications before leaving. Activity:: Activity as Tolerated Diet:: As Tolerated Discharge Orders Discharge Orders: Discharge Order (Routine); Ordered 06/28/23 Ordered By: Moshe Soliz DS: Diagnosis Discharge Diagnosis (1) Encounter for screening colonoscopy: Status: Acute Asessment and Plan: Follow-up on polypectomy results
--- NOTE | 2023-06-28 15:36 | COLE_ITS ---
Date of service: 06/29/23 Time of Service: 11:25 Colonoscopy Report Date of procedure: 06/29/23 Pre-op diagnosis general: screening colonoscopy Post-op diagnosis procedure note: other (Colon polyp) Procedure: colonoscopy with polypectomy Surgeon: Moshe Soliz Anesthesia Type: General:No Airway Estimated blood loss (mL): 5 Pathology: other (0.5 cm flat polyp at 20 cm from the anus) Complications: None Disposition: same day Indications: Jeremy is 62 years old and he is due for his next screening colonoscopy Prep: Miralax/Dulcolax Procedure Start Time: 10:56 Procedure End Time: 11:12 Retraction Time: 10 Findings: 0.5 cm flat polyp at 20 cm from the anus Procedure Description: After the induction of anesthesia, and with the patient in left lateral decubitus position, I began by performing an external anorectal exam.? Perineum and skin were normal, as was the anal verge.? There was no evidence of external hemorrhoids.? Next, I performed a digital rectal exam.? I did not appreciate any abnormal findings.? Next, I advanced a colonoscope into the rectal vault.? I performed retroflexion.? This was normal.? Using insufflation, I then advanced the colonoscope beyond the rectal folds and into the sigmoid colon before advan cing towards the cecum.? The scope was noted to be in the cecum by identification of the ileocecal valve and appendiceal orifice.? I then began withdrawing the colonoscope using repeated irrigation as necessary for full evaluation of the colonic mucosa. ?Around 20 cm from the anal verge was a 0.5 cm mostly flat polyp. This was removed in piecemeal with cold forceps. There was minimal bleeding. Once the scope was withdrawn to the level of the rectum, great care was taken to examine portions of the rectal folds.? Finally, the scope was withdrawn and the patient was brought to the same-day surgery recovery unit as the anesthetic wore off. ?The findings and instructions were shared with the patient prior to discharge. [place] Bowel Prep [place]wood Bowel Prep Right Colon: 3 Left Colon: 3 Transverse Colon: 3 Total Score: 9
[2023-06-29 09:24] VITALS: BP 129/77; PULSE 59; RESP 16; TEMP 36.5; O2SAT 97
[2023-06-29] MEDS: Lactated Ringers 1,000 ML 80 ML IV (09:30)
--- NOTE | 2023-06-29 09:44 | ANES.PREOP_ITS ---
General Info Date of Service Date Performed: 06/29/23 Height: 5 ft 11 in Weight: 68.6 kg Body Mass Index (BMI): 21.1 Surgical Procedure: Operation Date: 06/29/23 10:20 Proposed Procedure Side Surgeon kristin Soliz MD Meds Allergies and Home Medications Allergies Allergy/AdvReac Type Severity Reaction Status Date / Time Penicillins Allergy unknown Verified 06/29/23 09:21 Home Medication Medication Instructions Recorded aspirin 81 mg chewable tablet 81 mg PO DAILY #30 tab-caps 01/28/17 calcium carb-Ca gluc 500 mg 1 ea PO DAILY 04/27/17 calcium-magnesium ox-Mg gluc 250 mg tablet (Calcium Magnesium) cholecalciferol (vitamin D3) 50 2,000 unit PO DAILY 04/30/17 mcg (2,000 unit) capsule (Vitamin D3) albuterol sulfate 90 mcg/actuation 2 inh inhalation Q6H PRN 10/26/20 aerosol inhaler (ProAir HFA) atorvastatin 20 mg tablet 20 mg PO DAILY 10/26/20 tiotropium bromide 18 mcg capsule 1 cap inhalation DAILY PRN 10/26/20 with inhalation device (Spiriva with HandiHaler) ascorbate calcium (vitamin C) 500 500 mg PO DAILY 11/10/22 mg tablet lisinopril 10 mg tablet 20 mg PO DAILY 11/10/22 [id number]-ews-yxpml acid 0.4 1 tab PO DAILY 11/10/22 mg-lycopene 300 mcg-lutein 250 mcg tablet (Centrum Silver) Current Visit Medications: Current Medications Generic Name Dose Route Start Last Admin Trade Name Freq PRN Reason Stop Dose Admin Hyoscyamine Sulfate 0.125 mg 06/28/23 15:37 Hyoscyamine 0.125 Mg Sl/Oral/Chew SL 07/28/23 15:36 DIRECTED PRN Ringer's Solution 1,000 mls @ 80 mls/hr 06/29/23 06:00 06/29/23 09:30 IV 06/29/23 23:59 80 mls/hr INFUSION YESY Administration IV Miscellaneous Supplies 1 each 06/29/23 06:00 Iv Access IV 06/29/23 23:59 DIRECTED YESY Ondansetron HCl 4 mg 06/28/23 15:37 Ondansetron 4 Mg/2 Ml Vial IVP 07/28/23 15:36 Q4H PRN PRN Nausea / Vomiting Sodium Chloride 0 ml 06/29/23 06:00 Normal Saline Flush 10 Ml Syr IV 06/29/23 23:59 PRN PRN Sodium Chloride 0 ml 06/29/23 06:00 Normal Saline 10 Ml Vial IJ 06/29/23 23:59 DIRECTED PRN Sterile Water 0 ml 06/29/23 06:00 Water,Injection,Sterile 10 Ml Vial IJ 06/29/23 23:59 DIRECTED PRN PFSH Active Problems Active Problems: Problem Status Onset Code Encounter for screening colonoscopy Z12.11 History of cardiomyopathy Z86.79 Premature ventricular contractions I49.3 Chest pain R07.9 Prediabetes R73.03 Carpal tunnel syndrome on both sides G56.03 Right foot pain M79.671 Right lateral epicondylitis 10/15/16 M77.11 Carpal tunnel syndrome of left wrist 07/04/15 G56.02 Medical History Medical History Family history of colon cancer in father And MGF Hyperlipidemia Hypertension GERD (gastroesophageal reflux disease) Quit consuming alcohol in remote past Tobacco abuse Colitis Thoracic back pain Cardiomyopathy Neck pain Periodontal disease COPD (chronic obstructive pulmonary disease) Pulmonary nodules Osteoarthritis Bradycardia Surgical History Surgical History S/P carpal tunnel release Tonsillectomy Tobacco Smoking/Tobacco Use Status: Former Tobacco Use Alcohol Alcohol Intake: current Alcohol intake frequency: a few times a week Alcohol type: beer Substance Use Substance use: Daily Substance use type: marijuana Details: yesterday afternoon, last dose Vital Signs and Lab Results Vital Signs Most Recent Vital Signs in EMR: Most Recent Vital Signs Temp Pulse Resp BP Pulse Ox 36.5 C 59 L 16 129/77 97 06/29/23 09:24 06/29/23 09:24 06/29/23 09:24 06/29/23 09:24 06/29/23 09:24 Lab Results Blood Type / Crossmatch: No Data to Display Complete Blood Count: No Data to Display Complete Metabolic Panel: 2 No Data to Display Liver Function Panel: No Data to Display Coagulation Panel: No Data to Display Cardiac Panel: No Data to Display Arterial Blood Gas: No Data to Display Venous Blood Gas: No Data to Display Pancreas Panel: No Data to Display Thyroid Panel: No Data to Display Infectious Disease: No Data to Display Blood Cultures: No Data to Display Toxicology Panel: No Data to Display Imaging and Studies Imaging and Studies Study information below may be from another EMR and interpreted by another provider. Please see original notes in EMR for more complete details. EKG Summary: DATE/TIME OF SERVICE: 11/06/21 1809 : 1960 PERFORMING LOCATION: ER APPROVED REPORT Exam: Resting ECG Reason for Exam: weakness Patient Location: E HR:62 bpm ECG Measurements Heart Rate 62 AXIS MI 142 P 68 QRSd 112 QRS 77 QT 412 T40 QTc 419 Conclusion Sinus rhythm...normal P axis, V-rate 60- 99 Stress Test Summary: 10/21/22: Stress ECG Conclusion 1. Resting electrocardiogram was within normal limits 2. Patient exercised on the Johny protocol and completed a workload of 10.61 METS, limited by fatigue 3. Normal heart rate and blood pressure response to exercise. Patient achieved 92% of maximal predicted for age 4. There was no electrocardiographic evidence of myocardial ischemia 5. There were no significant dysrhythmias Date of study: 07/30/2016 *PATIENT PRESENTATION* Height: () Blood Pressure: Weight: () BSA: Referring physician: Adi Hu Ordering physician: Padma Abrams Aprn Impressions: - Normal perfusion by Tc99m Sestamibi Imaging. - Abnormal contraction consistent with cardiomyopathy. Summary: 1. Myocardial perfusion imaging: No myocardial perfusion defects noted. 2. The calculated left ventricular ejection fraction after stress: 47%. LV global systolic function is mildly reduced. Diffuse left ventricular regional motion abnormalities. 3. Stress ECG conclusions: The stress ECG is negative. Rare ventricular ectopy. Escobar treadmill score: 11. This score predicts a low risk of cardiac events. 4. Stress: The target heart rate was achieved. The heart rate response to stress is normal. There is a normal resting blood pressure with an appropriate response to stress. The patient experienced no chest pain during stress. Exercise capacity is average for age. 5. Imaging information: gated. Image quality reduced due to diaphragmatic attenuation. Attenuation correction used. Echocardiogram Summary: Date of Exam: 10/16/20 Sex: M Admission Date: 10/16/20 : 1960 Age: 59 APPROVED REPORT EXAM: Comprehensive 2D, Doppler, and color-flow Echocardiogram Patient Location: Out-Patient Life Specialist: Haylee Londono RDCS (AE) Indications: Chest pain, Cardiomyopathy Other Information Study Quality: Adequate Conclusion Left Ventricle : The left ventricle is normal size. The left ventricular systolic function is normal. The left ventricular ejection fraction is within the normal range. There is normal left ventricular wall thickness. There is normal LV segmental wall motion. The left ventricular diastolic function is normal. LVEF is 57%. Right Ventricle : The right ventricle is normal size. The right ventricular systolic function is normal. The RVSP is 27.9mmHg. Atria : The left atrium size is normal. The right atrium size is normal. Mitral Valve : The mitral valve is normal in structure. Mild mitral regurgitation. No evidence of mitral valve stenosis. Please see remainder of study for further details. Pulmonary Function Summary: DATE OF ADMIT: 09/18/16 : 1960 INTERPRETATION SPIROMETRY: Spirometry shows mild obstructive airways disease with no significant bronchodilator response. LUNG VOLUMES: Lung volumes show no evidence of restriction. DIFFUSION CAPACITY: Mildly reduced which is normal when corrected to alveolar volume. AIRWAY RESISTANCE: Normal IMPRESSION: Mild obstructive airways disease with no significant bronchodilator response. This is associated with mild diffusion defect. Clinical correlation recommended. Anesthesia Assessment and Plan Anesthesia History Personal History: No History of Anesthesia Complications Family History: No Family History of Anesthesia Complications Exercise Tolerance Exercise Tolerance: Metabolic Equivalents>4 Pertinent Negatives Pertinent Negatives: No Symptoms of GERD and No History of CVA/TIA Cardiac & Pulmonary Exam Cardiac Exam: Normal S1/S2 Heart Sounds Pulmonary Exam: Clear Bilateral Breath Sounds Implantable Cardiac Device Does patient have a Pacemaker or an ICD?: No Airway Exam Known Difficult Airway: No Mallampati Class: 2 Mouth Opening: Normal (> 3cm) Thyromental Distance: Greater than 3 cm Neck Range of Motion: Full ROM Neck Circumference: Normal Teeth Condition: Edentulous ASA Classification ASA Score: ASA 2 Emergency Case?: No NPO Status NPO Status: NPO Clears >2 hours, Solids >8 hours Anesthesia Plan Resuscitation Status: Full Code Anesthesia Technique: General Anesthesia Airway Planned: Natural Airway Monitors Used: Standard Monitors
[2023-06-29 10:27] VITALS: BMI 21.1
--- NOTE | 2023-06-29 11:10 | BOWEL_PTH ---
PATIENT: Jeremy Alfred LOC: [facility] U#:[id number] AGE/SX: 62/M ROOM: RE06/29/[address]: Moshe Soliz MD : 1960 BED: DIS: 06/29/2023 SPEC #: [id number] RECD: 06/29/23 13:01 STATUS: FAN RE #: [id number] KHARI: 06/29/23 11:[address]: Moshe Soliz DEPT: Surgical Specimen RECD BY: Deysi Ohara ENTERED: 06/29/23 13:02 SP TYPE: Bowel OTHR DR: Padma Abrams Tissues: 1 - BIOPSY BOWEL Procedures: GROSS AND MICRO LEVEL 4 Comments: [id number]
[2023-06-29 11:21] VITALS: BP 108/74; PULSE 69; RESP 16; TEMP 36.6
[2023-06-29 11:38] VITALS: BP 117/84; PULSE 64; RESP 16; TEMP 36.6; O2SAT 96
--- NOTE | 2023-06-29 11:56 | W.ANESPOSTOP ---
Postoperative Evaluation Date, Time and Location Date Performed: 06/29/23 Time Performed: 11:38 Patient Location: Day Surgery Unit Vital Signs Most Recent Imported Vital Signs: Most Recent Vital Signs Temp Pulse Resp BP Pulse Ox 36.6 C 64 16 117/84 96 06/29/23 11:38 06/29/23 11:38 06/29/23 11:38 06/29/23 11:38 06/29/23 11:38 Pain Score Most Recent Pain Score: Most Recent Pain Score Pain Level 0 06/29/23 11:38 Assessment Mental Status: Awake (Alert & Oriented to Patient Baseline) Airway and Respiratory Function: Patent airway with normal (patient baseline) respiratory exam Cardiovascular Function: Hemodynamically Stable Hydration Status: Adequately Hydrated Nausea & Vomiting: No Nausea or Vomiting Pain: Pain is tolerable per patient Peripheral Nerve Block: Patient did not receive a nerve block
== END 2023-06-29 11:50 | disposition home or self-care (01) ==
LOC: SUR 09:01
PROVIDERS: PCP Nurse Practitioner Family; Visit Provider Surgery
PROC: 0DJD8ZZ Inspection of Lower Intestinal Tract, Via Natural or Artificial Opening Endoscopic (ICD-10-PCS; CPT 45378; principal; 2023-06-29 10:15)
DX: Z12.11 Encounter for screening for malignant neoplasm of colon (principal); Z86.79 Personal history of other diseases of the circulatory system; D12.5 Benign neoplasm of sigmoid colon; F12.90 Cannabis use, unspecified, uncomplicated
CPT/HCPCS: 45380; 88305; J2001; J2704

== ENCOUNTER 2023-09-22 17:15 | Outpatient (REF) | payer MEDICAID, SELFPAY ==
[2023-09-22 14:56] LABS: Hemoglobin A1C 5.8 % (<5.7)
[2023-09-22 15:43] LABS: ALT 85 U/L (16-63); AST 40 U/L (15-37); Alkaline Phosphatase 97 U/L (46-116); BUN 22 mg/dL (7-18); Bilirubin, Total 0.41 mg/dL (0.2-1.0); CREATININE 0.9 mg/dL (0.70-1.30); Calcium 9.2 mg/dL (8.5-10.1); Calculated LDL 89 mg/dL (<100); Chloride 105 mmol/L (98-107); Cholesterol 173 mg/dL (<200); Estimated GFR 97.78 (mL/min/1.73m2); Glucose 119 mg/dL (74-106); HDL Cholesterol 61 mg/dL (40-60); Potassium 4.4 mmol/L (3.5-5.1); Sodium 142 mmol/L (136-145); TSH (W/Ref FT4) 1.35 uIU/mL (0.36-3.74); Total Protein 7.4 g/dL (6.4-8.2); Triglyceride 118 mg/dL (<150); Vitamin B12 939 pg/mL (193-986)
--- OUTSIDE RECORDS SUMMARY | 2023-09-22 17:17 | XMS_ITS | Encounter Summary ---
Author Organization [facility] Address [facility] [place] [address] Care Team Providers Care Employment Legal Assistant Name Role Phone Stephanie Whipple CRISTINO Primary Care Provider [phone] Reason for Visit * Reason Comments Follow-up Encounter Details Date Type Department Care Team (Late st Contact Info) Description 07/14/2014 9:15 AM EDT Office [place] [address] Tanner Diaz MD [facility] [place] [address] Joint pain Discharge Disposition: Home Social History Tobacco Use Types Packs/Day Years Used Date Smoking Tobacco: Never Assessed Sex and Gender Information Value Date Recorded Sex Assigned at Not on file Gender Identity Not on file Sexual Orientation Not on file documented as of this encounter Last Filed Vital Signs Vital Sign Reading Time Taken Comments Blood Pressure 126/82 07/14/2014 9:26 AM EDT Pulse 75 07/14/2014 9:26 AM EDT Temperature - - Respiratory Rate - - Oxygen Saturation - - Inhaled Oxygen Concentration - - Weight 61.2 kg (135 lb) 07/14/2014 9:26 AM EDT Height 181.6 cm (5' 11.5) 07/14/2014 9:26 AM ED T Body Mass Index 18.57 07/14/2014 9:26 AM EDT documented in this encounter Progress Notes * Tanner Diaz MD - 07/14/2014 10:04 AM EDT . This is a new patient consultation seen on Jeremy iTma. date is 10[birth year]. 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 He does not sleep well. He is in a lot of pain. He takes the naps in the afternoon, but his sleep is not disturbed by snoring or restless legs. He has had a weight loss of 150 to 135 pounds, but 135 pounds is what he weighed when he was 23. His appetite is good and he has undergone some screening tests, all of which have been negative except for an inflammatory marker. I do not have the exact results because they were not part of his package, but I am told that the only thing that was positive was an inflammatory marker. He is otherwise well. HIS ALLERGIES ARE TO PENICILLIN. His current medications are amitriptyline for sleep and Aleve. His past medical history is unremarkable. His past surgical history is unremarkable. His family history is notable for father and mother , father at age 82 of colon cancer, his mother at age 67 of COPD. He has four siblings and two are alive, two children, aged 30 and 28 that are well. Diabetes, heart disease, high blood pressure, alcoholism, and cancer run in his family. Arthritis does not, but his mother had back pain. His review of systems is notable for the weight loss, fatigue, weakness, chest pain, irregular heartbeat, persistent diarrhea, which on further questioning was just loose stools; nocturia, morning stiffness, anxiety, and difficulty staying asleep. His social history is notable for smoking one pack a day for 35 years. Alcohol, it looks like he has had 35 drinks a week and he smokes marijuana occasionally. On exam, he is healthy appearing. His blood pressure is 126/82. His pulse is 75. His height is 72 inches. His weight is 135 pounds. His BMI is 18.6. His HEENT exam is unremarkable. He has tobacco-stained teeth. His neck is supple. There is no lymphadenopathy. His chest is clear. His heart exam is unremarkable. His abdomen is scaphoid, but otherwise unremarkable. His hands have OA changes. Interestingly, both elbows have 20-degree flexion contractures. His chest expansion is normal. His Marcy's only goes from 10 to 13-1/2. He has got negative percussion tenderness over his LS spine and SI joints, and his knees have mild OA changes. The laboratories that I think he has had includes a TSH that was normal, a rheumatoid factor, GALLO, and CCP that were all negative. He apparently had an elevated sed rate or CRP. He is here to get a CT scan of his chest because of the smoking and the weight loss, but I have ordered laboratory studies that are pending at the time of this dictation including repeat inflammatory markers and HLA-B27, and x-rays of his LS spine and SI joints. I will see him later on in the day and will go over the labs, so that he does not have to make this trip again just for the labs. I saw Mr. Alfred after his imaging and blood test. His sedimentation rate was 7, CRP was 1.7 suggesting he did not have an inflammatory disease. His radiographs were more consistent with OA than ankylosing spondylitis, but we are still waiting for the HLA-B27. Since he gets about 60% benefit from Aleve one tablet twice a day, I asked him to take two tablets twice a day and come back in a month. He also had his chest CT, and it did not demonstrate evidence for malignancy. documented in this encounter Plan of Treatment Not on file documented as of this encounter Procedures Procedure Name Priority Date/Time Associated Diagnosis Comments HLA-B27 Routine 07/14/2014 10:13 AM EDT Joint pain SEDIMENTATION RATE Routine 07/14/2014 10 :13 AM EDT Joint pain WBC Routine 07/14/2014 10:13 AM EDT CRP, CARDIAC RISK (HS CRP) Routine 07/14/2014 10:13 AM EDT Joint pain documented in this encounter Results * XR S-I joints (07/14/2014 10:53 AM EDT) Anatomical Region Laterality Modality Pelvis, Hip N/A Radiographic Nelly ging 07/14/2014 10:5 3 AM EDT Impressions 07/14/2014 11:59 AM EDT IMPRESSION: Normal appearance of bilateral SI joints without evidence of bony proliferation or erosion. This report was reviewed by Mykel Moss at 07/14/2014 11:53 AM Film and interpretation reviewed by the attending Narrative 07/14/2014 11:59 AM EDT EXAMINATION: SACROILIAC JOINTS/BILAT CLINICAL HISTORY: ? TECHNIQUE: AP and oblique of the sacrum COMPARISON: None FINDINGS: Bilateral SI joint spaces are well preserved. No evidence of bony proliferation or erosive changes. Minimal degree of bone mineralization. Osteophytes are noted of the right femoral head. Procedure Note Mykel Moss MD - 07/14/2014 EXAMINATION: SACROILIAC JOINTS/BILAT CLINICAL HISTORY: ? TECHNIQUE: AP and oblique of the sacrum COMPARISON: None FINDINGS: Bilateral SI joint spaces are well preserved. No evidence of bonyproliferation or erosive changes. Minimal degree of bone mineralization. Osteophytes arenoted of the right femoral head. IMPRESSION IMPRESSION: Normal appearance of bilateral SI joints without evidence of bonyproliferation or erosion. This report was reviewed by Mykel Moss at 07/14/2014 11:53 AM Film and interpretation reviewed by the attending Tanner Diaz MD IMG DX ORDERABLES * XR lumbar spine 2 or 3 views (07/14/2014 10:45 AM EDT) Anatomical Region Laterality Modality L-spine N/A Radiographic Nelly ging 07/14/2014 10:4 5 AM EDT Impressions 07/14/2014 10:58 AM EDT IMPRESSION: Mild facet arthropathy L3 to S1. No evidence of ankylosing spondylitis or sacroiliac arthropathy. Narrative 07/14/2014 10:58 AM EDT EXAMINATION: LSPINE 2 OR 3 VIEWS CLINICAL HISTORY: ? TECHNIQUE: AP and lateral views lumbar sacral spine COMPARISON: None FINDINGS: No significant scoliosis noted. The sacroiliac joints are intact. No sign of degenerative disc disease or spondylolisthesis. There appears to be mild to moderate facet arthropathy from L3 to S1. Procedure Note Saad Martin MD - 07/14/2014 EXAMINATION: LSPINE 2 OR 3 VIEWS CLINICAL HISTORY: ? TECHNIQUE: AP and lateral views lumbar sacral spine COMPARISON: None FINDINGS: No significant scoliosis noted. The sacroiliac joints areintact. No sign of degenerative disc disease or spondylolisthesis. There appears yuriy mild to moderate facet arthropathy from L3 to S1. IMPRESSION IMPRESSION: Mild facet arthropathy L3 to S1. No evidence of ankylosing spondylitisor sacroiliac arthropathy. Tanner Diaz MD IMG DX ORDERABLES * WBC (07/14/2014 10:13 AM EDT) WBC 6.9 4.0 - 10.0 x10(3)/mcL [facility] Blood specimen (specimen) 07/14/2014 10:13 AM EDT 07/14/2014 10:25 AM EDT Narrative Resulting Agency Comment Spec In Lab Tanner Diaz MD HEMATOLOGY ORDERABLE S BIANCA EDMOND * HLA-B27 (07/14/2014 10:13 AM EDT) HLA-B27 Negative [facility] HLA-B27 Interp HLA B27 antigen was not detected. Method: Flow Cytometry Reference: 1.Bridget DA, Camden FD, Rafiq A, et al: Ankylosing spondylitis and HLA-27. Lancet 1973;1:904-907 2.Mac J, Chuy CARVAJAL: HLA-B27 typing by use of flow cytofluorometry . Clin Chem 1987;33:1619-16 23 CERDAVE TEAGUEIUM WBC 6.9 4.0 - 10.0 x10(3)/mc L [facility] Blood specimen (specimen) 07/14/2014 10:13 AM EDT 07/14/2014 10:25 AM EDT Narrative Resulting Agency Comment Spec In Lab Tanner Diaz MD HEMATOLOGY ORDERABLE S Performing Organization Address [facility] Phone Number [facility] * High Sensitivity CRP (07/14/2014 10:13 AM EDT) CRP High Sens 1.7 mg/L [facility] Comment: Interpretations: 1) For accurate cardiac risk assessment, the average of 2 values >2 weeks apart should be obtained (ref 1&2). A value >10 mg/L indicates an inflammatory condition, concentrations >10 mg/L should not be used for cardiac risk assessment. ?<1.0 mg/L: low risk ?1.0 - 3.0 mg/L: moderate risk ?>3.0 mg/L: high risk groups for future cardiovascular events 2) The general reference range of apparently healthy individuals using this test is <5.0 mg/L (derived from the test package insert) References: 1. Stevenson LOPES et. al. ??AHA/CDC Scientific Statement: Markers of Inflammation and Cardiovascular Disease. ??Circulation 2003; 107:499-511 2. Ridker PM. ??Clinical applications of C-reactive protein for cardiovascular disease detection and prevention. ??Circulation 2003; 107:363-369 Blood specimen (specimen) 07/14/2014 10:13 AM EDT 07/14/2014 10:25 AM EDT Narrative Resulting Agency Comment Spec In Lab Tanner Diaz MD CHEMISTRY ORDERABLES Performing Organization Address [facility] Phone Number [facility] * Sedimentation rate (07/14/2014 10:13 AM EDT) Sed Rate 7 0 - 15 mm/hr [facility] Blood specimen (specimen) 07/14/2014 10:13 AM EDT 07/14/2014 10:25 AM EDT Narrative Resulting Agency Comment Spec In Lab Tanner Diaz MD HEMATOLOGY ORDERABLE S Performing Organization Address [facility] Phone Number [facility] documented in this encounter Visit Diagnoses Diagnosis Joint pain Pain in joint, site unspecified Joint pain Pain in joint, site unspecified Joint pain Pain in joint, site unspecified documented in this encounter Care Teams Employment Legal Assistant Relationship Specialty Start Date End Date Stephanie Whipple APRN [address] [place] [address] PCP - General 06/12/14 08/01/19 documented as of this encounter
--- OUTSIDE RECORDS SUMMARY | 2023-09-22 17:17 | XMS_ITS | Encounter Summary ---
[place] [address] Care Team Providers Care Top Lift Scourer Name Role Phone Margareth Garza MD Primary Care Provider [phone] Encounter Details Date Type Department Care Team (Late st Contact Info) Description 07/05/2019 Telephone Dermatology at [facility] [address] [place] [facility] [place] [id number] Igor Gallardo MD [address] [place] [address] Social History Tobacco Use Types Packs/Day Years Used Date Smoking Tobacco: Never Assessed Sex and Gender Information Value Date Recorded Sex Assigned at Not on file Gender Identity Not on file Sexual Orientation Not on file documented as of this encounter Plan of Treatment Not on file documented as of this encounter Visit Diagnoses Not on filedocumented in this encounter Care Teams Top Lift Scourer Relationship Specialty Start Date End Date Margareth Garza MD [address] [place] [address] PCP - General Family Medicine 08/02/19 11/01/21 documented as of this encounter
--- OUTSIDE RECORDS SUMMARY | 2023-09-22 17:17 | XMS_ITS | Encounter Summary ---
[place] [address] Care Team Providers Care Operations Administrative Assistant Name Role Phone Margareth Garza MD Primary Care Provider [phone] Reason for Visit * Consultation (Routine) - Closed Specialty Diagnoses / Procedures Referred By Sara arcos Referred To Contact Dermatology Diagnoses Disorder of the skin and subcutaneous tissue, unspecified Skin lesions Procedures Consult Padma Abrams APRN [address] [place] [address] Igor Gallardo MD [address] [place] [address] [place] [address] Referral ID Status Reason Start Date Expiration Date V isits Requested Visits Authorized [id number] Closed Consult, Test & Treat PCP Updated and/or Approved 01/24/2019 01/24/2020 1 1 Encounter Details Date Type Department Care Team (Late st Contact Info) Description 08/02/2019 1:30 PM EDT Office Visit Dermatology at [address] [address] Igor Gallardo MD [address] [place] [address] [place] [address] Seborrheic keratosis Social History Tobacco Use Types Packs/Day Years Used Date Smoking Tobacco: Every Day Smokeless Tobacco: Never Sex and Gender Information Value Date Recorded Sex Assigned at Not on file Gender Identity Not on file Sexual Orientation Not on file documented as of this encounter Progress Notes * Igor Gallardo MD - 08/02/2019 1:30 PM EDT Problem: Skin lesions of concern Jeremy is a 58-year-old gentleman who is referred today by his PCP Padma Levi for a general skin check, and in particular evaluation of some moles on the left rastafari and on his back. He states that there is a history of cancer in his family but is not aware of any history of skin cancer, specifically no history of melanoma or nonmelanoma skin cancer. He is very fair skinned and tends to burn easily. 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 Physical examination reveals a pleasant 58-year-old gentleman who has type II Conrad pigmentation and blue eyes and very fair but thick hair. He has a 1.5 cm lobulated elevated seborrheic keratosis with a grayish-tannish appearance on the left rastafari. He has smaller seborrheic keratoses on hisback scattered diffusely which are 8 to 10 mm in diameter. He also has several scattered on the upper chest and on his shoulders. Fortunately careful examination of the skin of the face the neck the chest the back the hands informs is otherwise benign. 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 Assessment and plan: Seborrheic keratoses left rastafari and back and upper chest 1. Patient reassured about his benign skin examination 2. Reassured about benign seborrheic keratoses 3. Patient might consider at some point having the left rastafari seborrheic keratosis removed as it occasionally gets in the way 4. We will hold off on that for now at his request CC: Padma Abrams APRN documented in this encounter Plan of Treatment Not on file documented as of this encounter Visit Diagnoses Diagnosis Seborrheic keratosis Other seborrheic keratosis documented in this encounter Care Teams Operations Administrative Assistant Relationship Specialty Start Date End Date Margareth Garza MD [address] [place] [address] PCP - General Family Medicine 08/02/19 11/01/21 documented as of this encounter
--- OUTSIDE RECORDS SUMMARY | 2023-09-22 17:17 | XMS_ITS | Encounter Summary ---
Author Organization [facility] Address [facility] [place] [address] Care Team Providers Care Elementary Math Tutor Name Role Phone Padma Abrams CRISTINO Primary Care Provider [phone] Encounter Details Date Type Department Care Team (Late st Contact Info) Description 12/27/2021 Notes [place] [address] Jessy Still MD [facility] [place] [address] Social History Tobacco Use Types Packs/Day Years Used Date Smoking Tobacco: Every Day Smokeless Tobacco: Never Sex and Gender Information Value Date Recorded Sex Assigned at Not on file Gender Identity Not on file Sexual Orientation Not on file documented as of this encounter Progress Notes * Jessy Still MD - 12/27/2021 4:22 PM EDT Called by Transfer [facility] by Kimberly Sanchez APRN [facility] on 12/27/21 regarding Jeremy Alfred. Jeremy Alfred is a 61 y.o. male with PMH prediabetes, cardiomyopathy, HTN, GERD, COPD and Tobacco use, no personal cancer history who presented to ED with a 2-3d history of swelling just posterior tothe LEFT angle of the mandible inferior to the LEFT ear. Patient has no significant dental history,no foul drainage in his mouth, no otalgia, otorrhea, no hoarseness, no increased WOB. Denies traumato the area. He has never noticed this lesion before. This has been associated with reported fever at home to Tmax 101. Patient started on flagyll/rocephin in ED. No WBC obtained. VSS Temperature in ED 37.1 No CBC Patient is non-toxic appearing No respiratory concerns No trismus, managing secretions well No otalgia or otorrhea, no evidence of OM or otologic concerns There is an area of mild erythema, tenderness to palpation, firm to palpation LN, non fluctuant There is pain radiating to head and lower neck, no palpable LN inferior Of note there is a lateral LEFT temporal scalp lesion, flesh covered, looks like an overgrowth of skin, ?basal cell CT Head and Neck with 1.5x1.6cm fluid filled mass inferior to ear, posterior to parotid gland, justanterior to SCM, no evidence of parotid mass or obstructive pathology(cystic mass, necrotic LN vs abscess) Recommendations/Plan This lesion likely represents a necrotic lymph node which has likely become infected which may be reactive in nature from infectious process vs patient support representative of malignancy given his long-standing tobacco use history. We dicussed this pathology at length including management with antibiotic therapy and close follow up with ENT for further evaluation. I have requested follow up with Dr. Pepe Soliz. I discussed this pathology with Dr. Pepe Soliz who agreed with the above plan. Jessy Still MD, PGY2 12/27/2021 4:22 PM Pager #[phone] documented in this encounter Plan of Treatment Not on file documented as of this encounter Visit Diagnoses Not on filedocumented in this encounter Care Teams Elementary Math Tutor Relationship Specialty Start Date End Date Padma Abrams APRN [address] [place] [address] PCP - General Family Medicine 11/02/21 documented as of this encounter
--- OUTSIDE RECORDS SUMMARY | 2023-09-22 17:17 | XMS_ITS | Referral Summary ---
Author Organization [facility] Address [address] [place] [address] Care Team Providers Care Signal Operator Technical Name Role Phone Unknown, Provider Primary Care Provider Encounters Date Type Department Care Team Description 06/29/2023 Lab Requisition [facility] Pathology & Laboratory Medicine - [facility] [address] [place] [address] Moshe Soliz MD Encounter for screening for malignant neoplasm of colon from Last 3 Months Social History Tobacco Use Types Packs/Day Years Used Date Smoking Tobacco: Never Assessed Interpersonal Safety Answer Date Record ed Physically Hurt Never 10/03/2019 Verbally Threaten Not on file 10/03/2019 Sex and Gender Information Value Date Recorded Sex Assigned at Not on file Gender Identity Not on file Sexual Orientation Not on file Plan of Treatment Not on file Procedures Procedure Name Priority Date/Time Associated Diagnosis Comments SURGICAL PATHOLOGY Today 06/29/2023 11 :10 EDT Encounter for screening for malignant neoplasm of colon from Last 3 Months Results * SURGICAL PATHOLOGY (06/29/2023 11:10 EDT) Note to Patient The following pathology results have been interpreted by your pathologist and may be available to you before your health provider has had the opportunity to review them. Please allow time for your provider to receive these results and explore management options, if applicable. 06/30/2023 15:09 EDT [facility] Final Diagnosis A. COLON, @20CM, POLYP, BIOPSY: -Tubular adenoma. 06/30/2023 15:09 EDT [facility] Attestation By the signature below, the attending physician certifies that they have 1) personally conducted a gross and/or microscopic examination of the described specimen(s), and/or personally interpreted the results of laboratory testing of the described specimen(s), and 2) personally rendered or confirmed the above diagnosis. 06/30/2023 15:09 T [facility] at 1509 Clinical History F/H colon cancer 06/30/2023 15:09 EDT [facility] Gross Description A. Received in formalin labelled with proper patient identification (initials T, K) and colon polyp 20 cm are 2 mcgee-pink tissue fragments (0.7 x 0.6 x 0.2 cm in aggregate). Entirely submitted in A1. KELVIN ROSALES(ASCP) 06/29/2023 16:37 06/30/2023 15:09 EDT [facility] Performing Lab [facility] 06/30/2023 15:09 T [facility] Scanned Images 06/30/2023 15:09 EDT [facility] Tissue COLON STRUCTURE / Unknown 06/29/2023 11:10 EDT 06/29/2023 16:21 EDT Moshe Soliz MD PATHOLOGY ORDERABLES [facility] [address] [place] [address] from Last 3 Months Care Teams Signal Operator Technical Relationship Specialty Start Date End Date Unknown, Provider, PCP - General 07/31/16
--- OUTSIDE RECORDS SUMMARY | 2023-09-22 17:17 | XMS_ITS | Encounter Summary ---
Author Organization [facility] Address [facility] [place] [address] Care Team Providers Care Engineering Surveyor Name Role Phone Padma Abrams CRISTINO Primary Care Provider [phone] Reason for Visit * Reason Comments Follow-up Things have been kim rae Cleared up. Encounter Details Date Type Department Care Team (Late st Contact Info) Description 01/28/2022 1:20 PM EST Office [place] [id number] Pepe Soliz III, MD [facility] [place] [address] Neck mass Social History Tobacco Use Types Packs/Day Years Used Date Smoking Tobacco: Every Day Cigarettes 1 40 Smokeless Tobacco: Never Sex and Gender Information Value Date Recorded Sex Assigned at Not on file Gender Identity Not on file Sexual Orientation Not on file documented as of this encounter Last Filed Vital Signs Vital Sign Reading Time Taken Comments Blood Pressure - - Pulse - - Temperature - - Respiratory Rate - - Oxygen Saturation - - Inhaled Oxygen Concentration - - Weight 68 kg (150 lb) 01/28/2022 1:12 PM EST Height 182.9 cm (6') 01/28/2022 1:12 PM EST Body Mass Index 20.34 01/28/2022 1:12 PM EST documented in this encounter Progress Notes * Pepe Soliz III, MD - 01/28/2022 1:20 PM EST Otolaryngology Follow Up Note: Jeremy Alfred returns for recheck of the left neck. He is feeling well, and the mass has disappeared completely. Review of Systems: A complete review of constitutional, eyes, cardiovascular, respiratory, GI, , musculo-skeletal, skin, endocrine, psychiatric, hematologic, lymphatic and immunologic systems is completed and is as noted in the HPI. All other systems are otherwise negative. Examination shows the following: GENERAL: Well developed, well appearing, no acute distress. Vitals reviewed. HEAD/FACE/EYES: Normocephalic with no gross deformity. Extraocular movements intact. EARS: Normal exam of the external ear, ear canal, and middle ear bilaterally. NOSE: Normal external nasal exam. Septum midline. Turbinates are normal. SALIVARY: Parotid and submandibular glands are normal to inspection and palpation. ORAL CAVITY: Normal exam of oral tongue Normal mucosa without lesion Floor of mouth is soft. Dentition good repair OROPHARYNX: Normal tonsils. Normal soft palate and uvula. Posterior pharyngeal wall normal. LARYNX: Vocal cords normal. Vocal mobility normal. No mucosal lesions noted. NECK: No asymmetry on inspection. No induration in the upper left neck. No adenopathy. Normal thyroid. RESPIRATORY: Normal voice. No stridor. Normal respirations. CV: Normal carotid pulses. NEURO/PSYCH: Normal affect. Alert and oriented x 3. Responds appropriately to questions. CN II-XII grossly intact. PROCEDURES: IMPRESSION: Resolved lymphadenitis. documented in this encounter Plan of Treatment Not on file documented as of this encounter Visit Diagnoses Diagnosis Neck mass Swelling, mass, or lump in head and neck documented in this encounter Care Teams Engineering Surveyor Relationship Specialty Start Date End Date Padma Abrams APRN [address] [place] [address] PCP - General Family Medicine 11/02/21 documented as of this encounter
--- OUTSIDE RECORDS SUMMARY | 2023-09-22 17:17 | XMS_ITS | Encounter Summary ---
Author Organization [facility] [place] [address] Care Team Providers Care Chemists Name Role Phone Padma Abrams APRN Primary Care Provider [phone] Reason for Referral * Consultation (Routine) - Closed Specialty Diagnoses / Procedures Referred By Sara arcos Referred To Contact Dermatology Diagnoses Skin lesion Padma Abrams APRN [address] [place] [address] [facility] Dermatology [address] [place] [address] Referral ID Status Reason Start Date Expiration Date V isits Requested Visits Authorized [id number] Closed Consult, Test & Treat PCP Updated and/or Approved 11/02/2021 11/02/2022 12 12 Encounter Details Date Type Department Care Team (Late st Contact Info) Description 11/02/2021 Transcribe Orders eDH Incoming Referrals [phone] Padma Abrams APRN [address] [place], [place] [address] Skin lesion Social History Tobacco Use Types Packs/Day Years Used Date Smoking Tobacco: Every Day Smokeless Tobacco: Never Sex and Gender Information Value Date Recorded Sex Assigned at Not on file Gender Identity Not on file Sexual Orientation Not on file documented as of this encounter Plan of Treatment Scheduled Referrals Name Type Priority Associated Diagnoses Order Schedule Referral to Dermatology Outpatient Referral Routine Skin lesion Ordered: 11/02/2021 documented as of this encounter Visit Diagnoses Diagnosis Skin lesion Unspecified disorder of skin and subcutaneous tissue documented in this encounter Care Teams Chemists Relationship Specialty Start Date End Date Padma Abrams APRN [address] [place] [address] PCP - General Family Medicine 11/02/21 documented as of this encounter
--- OUTSIDE RECORDS SUMMARY | 2023-09-22 17:17 | XMS_ITS | Encounter Summary ---
Author Organization [facility] Address [address] [place] [address] Care Team Providers Care Phone Screener Name Role Phone Unknown, Provider Primary Care Provider [phone] Encounter Details Date Type Department Care Team ([facility] st Contact Info) Description 10/08/2017 Results Only [facility] [phone] Fior Gandara, DO [address] [address] Social History Tobacco Use Types Packs/Day Years Used Date Smoking Tobacco: Never Assessed Sex and Gender Information Value Date Recorded Sex Assigned at Not on file Gender Identity Not on file Sexual Orientation Not on file documented as of this encounter Plan of Treatment Not on file documented as of this encounter Procedures Procedure Name Priority Date/Time Associated Diagnosis Comments SURGICAL PATHOLOGY Routine 10/07/2017 16 :22 EDT documented in this encounter Results * SURGICAL PATHOLOGY (10/07/2017 16:22 EDT) Pathology Report: SURGICAL PATHOLOGY REPORT Reports generated via electronic interface contain original data; however they are lacking the format of the original report. Caution should be taken when reading/interpret ing unformatted reports. Name: ? BASIM ALFRED ? Accession #: ? [id number] ? : ? 1960 (Age: 56) ??M ? Collect Date: ? 10/07/2017 ? Location: ? [facility] ? Receive Date: ? 10/08/2017 ? Provider: FIOR GANDARA DO Copy to: ? Final Pathologic Diagnosis: COLON, RIGHT, RANDOM, BIOPSY: - Microscopic colitis. Document reviewed and electronically signed by: SHILOH DE SOUZA MD Report ??Date: 10/12/2017 17:46 By the signature above, the attending physician certifies that he/she has personally conducted a gross and/or microscopic examination of the described specimens and rendered or confirmed the above diagnosis. Specimen(s) Received: Random right colon Clinical History: Chronic diarrhea, wt loss; clinical diagnosis code: ??K52.9, R63.4, R15.2, Z80.0 Gross Description: ? Received in formalin labelled with proper patient identification (initials T K) and random right colon are three fragments of mcgee-pink tissue ranging from 0.2-0.5 cm in greatest dimension. The specimens are submitted entirely in 1. KELVIN Sauceda (ASCP) 10/08/2017 4:32 PM End of Report [facility] 10/07/2017 16:2 2 EDT 10/08/2017 16:22 EDT Fiorvivian Gandara DO PATHOLOGY ORDERABLES [facility] [address] [place] [address] documented in this encounter Visit Diagnoses Not on filedocumented in this encounter Care Teams Phone Screener Relationship Specialty Start Date End Date Unknown, Provider, PCP - General 07/31/16 documented as of this encounter
--- OUTSIDE RECORDS SUMMARY | 2023-09-22 17:17 | XMS_ITS | Encounter Summary ---
Author Organization [facility] Address [address] [place] [address] Care Team Providers Care Black Off Worker Name Role Phone Unknown, Provider Primary Care Provider Encounter Details Date Type Department Care Team (Late st Contact Info) Description 04/03/2020 Lab Requisition [facility] Pathology & Laboratory Medicine - [facility] [address] [place] [address] Outr Resulting Lab, Provider Social History Tobacco Use Types Packs/Day Years [...] Procedure Name Priority Date/Time Associated Diagnosis Comments HIV 1/2 ANTIGEN AND ANTIBODY, 4TH GENERATION Routine 04/03/2020 8:25 EST documented in this encounter Results * HIV 1/2 ANTIGEN AND ANTIBODY, 4TH GENERATION (04/03/2020 8:25 EST) HIV 1 and 2 Antibody/p24 Antigen, 4th Generation Negative Negative 04/04/2020 9:33 EST [facility] Comment: If acute HIV-1 infection is suspected in a high risk ??patient, submit plasma specimen for HIV-1 RNA quantitation test. Fourth Generation assay performed on the Siemens Centaur. Blood VENOUS BLOOD / Unknown 04/03/2020 8:25 EST 04/03/2020 19:28 EST Provider Outr Resulting Lab IMMUNOLOGY A ND SEROLOGY ORDERABLES [facility] [address] [place] [address] documented in this encounter Visit Diagnoses Not on filedocumented in this encounter Care Teams Black Off Worker Relationship Specialty Start Date End Date Unknown, Provider, PCP - General 07/31/16 documented as of this encounter
--- OUTSIDE RECORDS SUMMARY | 2023-09-22 17:17 | XMS_ITS | Encounter Summary ---
Author Organization [facility] Address [facility] [place] [address] Care Team Providers Care Wrapper Hands Sprayer Name Role Phone Padma Abrams APRN Primary Care Provider [phone] Reason for Visit * Consultation (Routine) - Closed Specialty Diagnoses / Procedures Referred By Sara arcos Referred To Contact Dermatology Diagnoses Skin lesion Padma Abrams APRN [address] [place] [address] [facility] Dermatology [address] [place] [address] Referral ID Status Reason Start Date Expiration Date V isits Requested Visits Authorized [id number] Closed Consult, Test & Treat PCP Updated and/or Approved 11/02/2021 11/02/2022 12 12 Encounter Details Date Type Department Care Team (Late st Contact Info) Description 11/27/2021 3:00 PM EDT Office Visit Dermatology at [facility] [address] [place] [address] Elena Riley MD [facility] [address] [place] [address] Inflamed seborrheic keratosis; Seborrheic keratosis Social History Tobacco Use Types Packs/Day Years Used Date Smoking Tobacco: Every Day Smokeless Tobacco: Never Sex and Gender Information Value Date Recorded Sex Assigned at Not on file Gender Identity Not on file Sexual Orientation Not on file documented as of this encounter Progress Notes * Elena Belle MD - 11/27/2021 3:00 PM EDT Images from the original note were not included. DEPARTMENT OF DERMATOLOGY [facility] D[facility]at[facility] Provider: Elena Belle MD Patient's preferred name Jeremy Preferred contact method for results [x]Phone []myD-H []Letter Detailed phone message OK? Yes Are there any other people with whom we may discuss your care? 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 Patient is referred to the clinic at the request of Padma Abrams for the following: -Lesion on left parietal scalp. Present for a few years. Itchy and irritated at times. No previous treatment. Review of Systems: General: Feeling well. Skin: No other skin concerns. Medications: Reviewed in eD-H Allergies: Reviewed in eD-H Skin Examination: Focused skin examination of the left parietal scalp & back was normal with the exception of thefindings below. Assessment/Plan # Inflamed seborrheic keratosis - stuck-on brown/graff waxy papule with erythema located on the leftparietal scalp x1 - Reassured of the benign nature of these lesions - Given irritated nature, joint decision to proceed with treatment with LN2 today - Procedure: Destruction with Liquid Nitrogen Cryotherapy Number of lesions - 1 The patient's verbal consent for liquid nitrogen was obtained. Risks and benefits were explained. The possible need for additional liquid nitrogen was reviewed. Lesion(s) were treated with LN2 [id number] freeze-thaw cycle. The patient tolerated the procedure well. Wound care was reviewed. # Seborrheic keratoses - mcgee/brown waxy stuck-on papules and plaques on the trunk and extremities. - Reassured of the benign nature of these lesions - No treatment needed Other: ??? N/A RTC: PRN []Note routed to legal secretary receptionist []Recall placed in scheduling system []Appointment scheduled at checkout Scribe attestation: Dora Maldonado LPN has performed the documentation for this encounter in the presence of and acting as a scribe for Elena Belle MD. I performed the above scribed service and agree with the accuracy of the documentation in this encounter. Reviewed and signed by: Elena Belle MD Dermatology [facility] [place] [facility] documented in this encounter Plan of Treatment Not on file documented as of this encounter Visit Diagnoses Diagnosis Inflamed seborrheic keratosis Seborrheic keratosis Other seborrheic keratosis documented in this encounter Care Teams Wrapper Hands Sprayer Relationship Specialty Start Date End Date Padma Abrams APRN [address] [place] [address] PCP - General Family Medicine 11/02/21 documented as of this encounter
--- OUTSIDE RECORDS SUMMARY | 2023-09-22 17:17 | XMS_ITS | Clinical Summary ---
Author Organization [facility] Address [address] [place] [address] Care Team Providers Care Mold Burner Name Role Phone Unknown, Provider Primary Care Provider [phone] Encounters Date Type Department Care Team Description 06/29/[address] [facility] Pathology & Laboratory Medicine - [facility] [address] [place] [address] Moshe Soliz MD Encounter for screening for [...] Orientation Not on file Plan of Treatment Health Maintenance Due Date Last Done Comments Hepatitis C Screen 1960 COVID-19 Vaccine (2022-24 season) 2022 RSV Immunization ( o r 60+ Years) (1 - 1-dose 60+ series) 2022 Procedures Procedure Name Priority Date/Time Associated Diagnosis [...] management options, if applicable. 06/30/2023 15:09 EDT [facility] Final Diagnosis A. COLON, @20CM, POLYP, BIOPSY: -Tubular adenoma. 06/30/2023 15:09 [facility] Attestation By the signature below, the attending physician certifies that they have 1) personally conducted a gross and/or microscopic examination of the described specimen(s), and/or personally interpreted the results of laboratory testing of the described specimen(s), and 2) personally rendered or confirmed the above diagnosis. 06/30/2023 15:09 [facility] at 1509 Clinical History F/H colon cancer 06/30/2023 15:09 [facility] Gross Description A. Received in formalin labelled with proper patient identification (initials T, K) and colon polyp 20 cm are 2 mcgee-pink tissue fragments (0.7 x 0.6 x 0.2 cm in aggregate). Entirely submitted in A1. KELVIN ROSALES(ASCP) 06/29/2023 16:37 06/30/2023 15:09 T [facility] Performing Lab [facility] 06/30/2023 15:09 [facility] Scanned Images 06/30/2023 15:09 [facility] Tissue COLON STRUCTURE / Unknown 06/29/2023 11:10 EDT 06/29/2023 16:21 EDT Moshe Soliz MD PATHOLOGY ORDERABLES [facility] [address] [place] [address] from Last 3 Months Care Teams Mold Burner Relationship Specialty Start Date End Date Unknown, Provider, PCP - General 07/31/16
--- OUTSIDE RECORDS SUMMARY | 2023-09-22 17:17 | XMS_ITS | Encounter Summary ---
Author Organization [facility] Address [address] [place] [address] Care Team Providers Care Shovel Log Loader Operator Name Role Phone Unknown, Provider Primary Care Provider [phone] Encounter Details Date Type Department Care Team (Late st Contact Info) Description 04/03/2020 Lab Requisition [facility] Pathology & Laboratory Medicine - [facility] [address] [place] [address] Outr Resulting Lab, Provider Social History Tobacco [...] Procedure Name Priority Date/Time Associated Diagnosis Comments CCP ANTIBODIES Routine 04/03/2020 8:25 EST ANTI NUCLEAR AB (GALLO), IFA Routine 04/03/2020 8:25 EST documented in this encounter Results * (ABNORMAL) ANTI NUCLEAR AB (GALLO), IFA (04/03/2020 8:25 EST) GALLO Interpretation Positive(A) Negative 04/04/2020 12:17 EST [facility] Comment: For titers greater than or equal to 1:160 (except the centromere and nucleolar patterns) it is recommended that specific follow-up autoantibody testing ??(such as for dsDNA and Extractable Nuclear Antigens) be performed on all diffuse and/or speckled patterns NOTE: For add-on testing dsDNA is stable for 7 days refrigerated while Extractable Nuclear Antigens are only stable for 48 hours refrigerated. GALLO Titer and Pattern 1 1:160 Speckled 04/04/2020 12:17 EST [facility] Blood VENOUS BLOOD / Unknown 04/03/2020 8:25 EST 04/03/2020 19:28 EST Narrative [facility] - 04/04/2020 12:17 EST Results were obtained with the INOVA NOVA Lite HEp-2 GALLO Kit by indirect immunofluorescence. Provider Outr Resulting Lab IMMUNOLOGY A ND SEROLOGY ORDERABLES Performing Organization Address City/[facility]/ZIP Co de Phone Number [facility] [address] [place] [address] * CCP ANTIBODIES (04/03/2020 8:25 EST) CCP Antibodies <2.5 <5.0 U/mL 04/04/2020 9:27 EST [facility] Blood VENOUS BLOOD / Unknown 04/03/2020 8:25 EST 04/03/2020 19:28 EST Provider Outr Resulting Lab IMMUNOLOGY A ND SEROLOGY ORDERABLES Performing Organization Address City/[facility]/ZIP Co de Phone Number [facility] [address] [place] [address] documented in this encounter Visit Diagnoses Not on filedocumented in this encounter Care Teams Shovel Log Loader Operator Relationship Specialty Start Date End Date Unknown, Provider, PCP - General 07/31/16 documented as of this encounter
--- OUTSIDE RECORDS SUMMARY | 2023-09-22 17:17 | XMS_ITS | Encounter Summary ---
Author Organization [facility] [place] [address] Care Team Providers Care Mushroom Cultivator Name Role Phone Padma Abrams APRN Primary Care Provider [phone] Encounter Details Date Type Department Care Team (Late st Contact Info) Description 12/27/2021 4:10 PM EDT Ancillary [place] [address] Deniz Soliz, [place] [address] Social History Tobacco Use Types Packs/Day Years Used Date Smoking Tobacco: Every Day Smokeless Tobacco: Never Sex and Gender Information Value Date Recorded Sex Assigned at Not on file Gender Identity Not on file Sexual Orientation Not on file documented as of this encounter Plan of Treatment Not on file documented as of this encounter Procedures Procedure Name Priority Date/Time Associated Diagnosis Comments FILM LIBRARY STORAGE ONLY DX CHEST Routine 12/27/2021 4:08 PM EDT documented in this encounter Results * Film Library- Storage Only DX Chest (12/27/2021 4:08 PM EDT) Narrative RAD - 12/27/2021 4:08 PM EDT This exam is auto-finalizing. It's purpose is for storage only. Deniz Soliz PhD IMG FILM LIBRARY ORD ERABLES [place], [place] documented in this encounter Visit Diagnoses Not on filedocumented in this encounter Care Teams Mushroom Cultivator Relationship Specialty Start Date End Date Padma Abrams APRN [address] [place] [address] PCP - General Family Medicine 11/02/21 documented as of this encounter
--- OUTSIDE RECORDS SUMMARY | 2023-09-22 17:17 | XMS_ITS | Encounter Summary ---
Author Organization [facility] Address [address] [place] [address] Care Team Providers Care Application Manager Name Role Phone Unknown, Provider Primary Care Provider [phone] Encounter Details Date Type Department Care Team (Late st Contact Info) Description 06/29/2023 Lab Requisition [facility] Pathology & Laboratory Medicine - [facility] [address] [place] [address] Moshe Soliz MD [address] [place] [address], [address] [place], [place] [id number] Encounter for screening for malignant neoplasm of colon Social History Tobacco Use Types Packs/Day Years [...] for screening for malignant neoplasm of colon documented in this encounter Results * SURGICAL PATHOLOGY (06/29/2023 11:10 EDT) Note to Patient The following pathology results have been interpreted by your pathologist and may be available to you before your health provider has had the opportunity to review them. Please allow time for your provider to receive these results and explore management options, if applicable. 06/30/2023 15:09 EDT [facility] Final Diagnosis A. COLON, @20CM, POLYP, BIOPSY: -Tubular adenoma. 06/30/2023 15:09 [facility] Attestation By the signature below, the attending physician certifies that they have 1) personally conducted a gross and/or microscopic examination of the described specimen(s), and/or personally interpreted the results of laboratory testing of the described specimen(s), and 2) personally rendered or confirmed the above diagnosis. 06/30/2023 15:09 [facility] at 1509 Clinical History F/H colon cancer 06/30/2023 15:09 [facility] Gross Description A. Received in formalin labelled with proper patient identification (initials T, K) and colon polyp 20 cm are 2 mcgee-pink tissue fragments (0.7 x 0.6 x 0.2 cm in aggregate). Entirely submitted in A1. KELVIN ROSALES(ASCP) 06/29/2023 16:37 06/30/2023 15:09 [facility] Performing Lab [facility] 06/30/2023 15:09 [facility] Scanned Images 06/30/2023 15:09 [facility] Tissue COLON STRUCTURE / Unknown 06/29/2023 11:10 EDT 06/29/2023 16:21 EDT Moshe Soliz MD PATHOLOGY ORDERABLES Performing Organization Address City/State/[facility] Co de Phone Number [facility] [address] [place] [address] documented in this encounter Visit Diagnoses Diagnosis Encounter for screening for malignant neoplasm of colon Special screening for malignant neoplasms, colon documented in this encounter Care Teams Application Manager Relationship Specialty Start Date End Date Unknown, Provider, PCP - General 07/31/16 documented as of this encounter
--- OUTSIDE RECORDS SUMMARY | 2023-09-22 17:17 | XMS_ITS | Encounter Summary ---
Author Organization [facility] Address [facility] [place] [address] Care Team Providers Care Peeler Operator Name Role Phone Stephanie Whipple CRISTINO Primary Care Provider [phone] Encounter Details Date Type Department Care Team (Late st Contact Info) Description 07/14/2014 10:36 AM EDT - 07/14/2014 11:59 PM EDT Hospital Encounter XRay at [address] [place] [address] Joint pain Social History Tobacco Use Types Packs/Day Years Used Date Smoking Tobacco: Never Assessed Sex and Gender Information Value Date Recorded Sex Assigned at Not on file Gender Identity Not on file Sexual Orientation Not on file documented as of this encounter Medications at Time of Discharge Medication Sig Dispensed Refills Start Date End Date amitriptyline (ELAVIL) 10 mg Tablet Take 10 mg by mouth nightly. naproxen sodium 220 mg Capsule Take 1 capsule by mouth as needed. omeprazole (PRILOSEC) 20 mg Capsule, Delayed Release(E.C.) Take 20 mg by mouth as needed. documented as of this encounter Plan of Treatment Not on file documented as of this encounter Procedures Procedure Name Priority Date/Time Associated Diagnosis Comments XR LUMBAR SPINE 2 OR 3 VIEWS Routine 07/14/2014 10:45 AM EDT Joint pain documented in this encounter Results * XR lumbar spine 2 or 3 [...] arthropathy. Tanner Diaz MD IMG DX ORDERABLES documented in this encounter Visit Diagnoses Diagnosis Joint pain Pain in joint, site unspecified documented in this encounter Care Teams Peeler Operator Relationship Specialty Start Date End Date Stephanie Whipple APRN [address] [place] [address] PCP - General 06/12/14 08/01/19 documented as of this encounter
--- OUTSIDE RECORDS SUMMARY | 2023-09-22 17:17 | XMS_ITS | Encounter Summary ---
Author Organization [facility] Address [facility] [place] [address] Care Team Providers Care Science Tutor Name Role Phone Stephanie Whipple CRISTINO Primary Care Provider [phone] Encounter Details Date Type Department Care Team (Late st Contact Info) Description 07/14/2014 10:36 AM EDT - 07/14/2014 11:59 PM EDT Hospital Encounter XRay at [address] [place] [address] Joint pain Social History Tobacco Use Types [...] Name Priority Date/Time Associated Diagnosis Comments XR SACROILIAC JOINTS (GENERIC) Routine 07/14/2014 10:53 AM EDT Joint pain documented in this [...] attending Tanner Diaz MD IMG DX ORDERABLES documented in this encounter Visit Diagnoses Diagnosis Joint pain Pain in joint, site unspecified documented in this encounter Care Teams Science Tutor Relationship Specialty Start Date End Date Stephanie Whipple APRN [address] [place] [address] PCP - General 06/12/14 08/01/19 documented as of this encounter
--- OUTSIDE RECORDS SUMMARY | 2023-09-22 17:17 | XMS_ITS | Encounter Summary ---
Author Organization [facility] Address [address] [place] [id number] Care Team Providers Care Pastry Chef Name Role Phone Unknown, Provider Primary Care Provider [phone] Encounter Details Date Type Department Care Team (Latest Contact Info) Description 10/07/2017 17:01 EDT - 10/07/2017 23:59 EDT Hospital Encounter [address] [address] Unknown, Provider, Discharge Disposition: Home or Self Care Social History Tobacco Use Types Packs/Day Years Used Date Smoking Tobacco: Never Assessed Sex and Gender Information Value Date Recorded Sex Assigned at Not on file Gender Identity Not on file Sexual Orientation Not on file documented as of this encounter Discharge Disposition Disposition Code Departure Means Destination Home or Self [facility] documented in this encounter Plan of Treatment Not on file documented as of this encounter Visit Diagnoses Not on filedocumented in this encounter Care Teams Pastry Chef Relationship Specialty Start Date End Date Unknown, Provider, PCP - General 07/31/16 documented as of this encounter
--- OUTSIDE RECORDS SUMMARY | 2023-09-22 17:17 | XMS_ITS | Continuity of Care Document ---
Author Organization [place] - [facility] Address [address] [place] [address] Assessment Encounter Date Assessment Date Assessment LastModified by Organization Details LastModified Time 09/22/2023 09/22/2023 Flu vaccine: current Comirnaty: declines Td: current - due 2025 PCV20: completed Shingrix: completed RSV: counseled to get at local pharmacy as desires this fall CRC: currentcompleted 2017 AAA Screening: n/a Follow-up in 6 Months. Call or RTO sooner if needs arise. [email or web address] Not available 09/22/2023 11:00:21 Plan of Treatment Reminders Order Date Submit Date Provider Last Modified By Organization Details Last Modified Time Details Appointments Office Visit 2023 10:30A M PADMA SANCHEZ Not available Not available Not available Follow Up 2024 10:30A M PADMA SANCHEZ Not available Not available Not available Lab magnesium , serum or plasma 2023 024 [email or web address] [facility] (Registration ), [address] [place] [address] [place], [address], 09/22/2023 12:27:33 vitamin B12, serum 2023 024 [email or web address] [facility] (Registration ), [address] [place] [address] [place], [address], 09/22/2023 12:27:33 HbA1c (hemoglob in A1c), blood 2023 024 [email or web address] [facility] (Registration ), [address] [place] [address] [place], [address], 09/22/2023 12:27:33 CMP, serum or plasma 2023 024 [facility] (Registration ), [address] [place] [address] [place], [address], 09/22/2023 15:49:29 lipid panel, serum [address] [facility] (Registration ), [address] [place] [address] [place], [address], 09/22/2023 12:27:33 TSH, serum, reflex free T4 [address] [facility] (Registration ), [address] [place] [address] [place], [address], 09/22/2023 12:27:[address] referral - could benefit from EMG studies. 2023 024 [facility], [address] [place] [address] [place], [address], 09/22/2023 13:55:21 Procedures None recorded. Surgeries None recorded. Imaging LDCT, chest, for lung cancer screening 2023 024 [facility] (Radiology), [address] [place] [address] [place], [address], 09/22/2023 14:10:50 Medication Orders None recorded. Patient TargetsNo targets recorded. Patient Instructions Encounter Date Encounter Id Patient Instructions Last Modified By Organization Details Last Modified Time 09/22/2023 [id number] starting a weigh t loss plan: care instructions Not available 09/22/2023 11:05:42 diet Not available 2023 11:05:42 exercise Not available 2023 11:05:43 Reason for Referral Neurologist Referral for Elizabeth ropathy could benefit from EMG studies. Referring Physician: Padma Sanchez, Family Medicine, Encounter Date: 09/22/2023 Problems Name Status Onset Date Resolution Date Notes Provider Name and Address Organization Details Recorded Time Tobacco dependence caused by cigarettes Active 201101/14/2019 - Comments only - Padma Sanchez APRN - Encouraged smoking cessation. No desires for medication mgmt. Trial of nicotine patches. Is smoking 1/2 ppd-1ppd. Rev'd common s/e of medication. Start 21mg patches for 6 weeks, decrease 14mg for 6 weeks, then 7mg patches for 6 weeks then stop. We discussed behavioral changes as well. Problem Code: F17.210; Problem Code Type: ICD-10; [address], [place], [address] , [facility] 3 04:53:33 Periodontal disease Active 2002 Problem Code: K05.6; Problem Code Type: ICD-10; [address], [place], [address] , [facility] 3 04:53:33 Osteoarthriti s Active 201410/29/2017 - Comments only - Padma Sanchez APRN - continues to struggle with, worsened since meloxicam was discontinued. Due to his colitis, unable to do any NSADIs. encouraged APAP arthritis with food BID- TID. Does not feel gabapentin is greatly effective for him, will reduce this to twice a day for 2 weeks then, at bedtime for 2 weeks, then can stop. If pain changes, he will call and let me know. 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 monitor for now. start inhalers as indicated. Problem Code: J44.9; Problem Code Type: ICD-10; [address], [place], [address] , [facility] 3 04:53:33 Cardiomyopath y Active 2016 Problem Code: I42.9; Problem Code Type: ICD-10; [address], [facility] [address] , [facility] 3 04:53:34 Neck pain Active 201602/07/2020 - Comments only - Padma Sanchez [employer] - with back pain. worsening right now. Encouraged rest, ice, heat, gentle stretching, compresses. CBD oil as desires. If not improving, refer to PT. Problem Code: M54.2; Problem Code Type: ICD-10; [address], [place], [address] , [facility] 3 04:53:34 Screening for disorder Completed 201711/29/2017 Problem Code: Z13.9; Problem Code Type: ICD-10; Not Available [facility] 3 04:47:26 Nonulcer dyspepsia Active 201801/14/2019 - Comments only - Padma Sanchez APRN - no breakthrough indigestion. Decrease to QOD for 2 weeks and if no breakthrough reflux, can fully stop. Problem Code: K30; Problem Code Type: ICD-10; [address], [place], [address] , [facility] 3 04:53:34 Pain in thoracic spine Active 2019 Problem Code: M54.9; Problem Code Type: ICD-10; [address], [place], [address] , [facility] 3 04:53:33 Joint pain Active 202004/09/2020 - Comments only - Padma Sanchez APRN - neck pain, osteoarthriti s. Discussed medication management for his chronic joint pains such as cymbalta, gabapentin. Avoid NSAIDs because of cardiomyopath y. He would like to retry gabapentin, last on this in 2018. Will do a gentle increase if tolerated. Declines taking cymbalta at this point. Briefly discussed blood work results; negative inflammatory markers for ESR and CRP. Negative for RA based on CCP. +GALLO at 1:160, speckled; waiting for LATIA and dsDNA and lyme / tick panel. Problem Code: M25.50; Problem Code Type: ICD-10; [address], [facility] [address] , [facility] 3 04:53:34 HIV screening Completed 202004/10/2020 Problem Code: Z11.4; Problem Code Type: ICD-10; Not Available [facility] 3 04:47:26 Prediabetes Active 2020 Problem Code: R73.03; Problem Code Type: ICD-10; [address], [facility] [address] , [facility] 3 04:53:34 Hypomagnesemi a Active 2020 Problem Code: E83.42; Problem Code Type: ICD-10; [address], [facility] [address] , [facility] 3 04:53:33 Chest pain Active 2020 Problem Code: R07.9; Problem Code Type: ICD-10; [address], [facility] [address] , [facility] 3 04:53:33 Ventricular premature complex Active 2020 Problem Code: I49.3; Problem Code Type: ICD-10; [address], [place], [address] , [facility] 3 04:53:33 Effusion of joint of left knee Completed 202003/16/2021 Problem Code: M25.462; Problem Code Type: ICD-10; Not Available [facility] 3 04:47:27 Hyperlipidemi a Active 2021 Problem Code: E78.5; Problem Code Type: ICD-10; [address], [facility] [address] , [facility] 3 04:53:34 Acute upper respiratory infection Completed 202107/14/2021 Problem Code: J06.9; Problem Code Type: ICD-10; Not Available [facility] 3 04:47:27 Disorder of skin and/or subcutaneous tissue Active 2021 Problem Code: L98.9; Problem Code Type: ICD-10; [address], [facility] [address] , [facility] 3 04:53:34 Essential hypertension Active 2022 Problem Code: I10; Problem Code Type: ICD-10; [address], [place], [address] , [facility] 3 04:53:34 Family history of malignant neoplasm of digestive organ Active 2022 Problem Code: Z80.0; Problem Code Type: ICD-10; [address], [facility] [address] , [facility] 3 04:53:34 Tobacco user Completed 201111/26/2022 02/05/2016 - Comments only - Padma Sanchez APRN - has quit date set. Encouraged behavior changes which has been effective for him. Has been smoke free for 2 days. Encouraged full smoking cessation. Problem Code: Z72.0; Problem Code Type: ICD-10; Not Available [facility] 3 04:47:28 Chest pain Completed 201710/29/2017 Problem Code: R07.89; Problem Code Type: ICD-10; PADMA SANCHEZ, [address], [place], [address] , [facility] 3 04:53:34 Carpal tunnel syndrome Completed 202007/11/2022 Problem Code: G56.00; Problem Code Type: ICD-10; Not Available [facility] 3 04:47:28 Nicotine dependence Completed 201111/26/2022 12/08/2016 - Comments only - Pat Copeenger [employer] - - Not smoking cigarettes, though does smoke marijuana. Discussed ill effect on his health, in particular his COPD and cardiomyopath y. Encouraged cessation Problem Code: Z87.891; Problem Code Type: ICD-10; Not Available [facility] 3 04:47:28 Pain of left hand Completed 201907/11/2022 Problem Code: M79.642; Problem Code Type: ICD-10; Not Available [facility] 3 04:47:28 Pre-surgery testing Completed 201704/28/2017 Problem Code: Z01.812; Problem Code Type: ICD-10; Not Available [facility] 3 04:47:29 Generalized enlarged lymph nodes Completed 202105/12/2022 Problem Code: R59.1; Problem Code Type: ICD-10; Not Available [facility] 3 04:47:29 Pain of right elbow joint Completed 201601/14/2019 Problem Code: M25.521; Problem Code Type: ICD-10; Not Available [facility] 3 04:47:29 Genitourinary symptoms Completed 202010/22/2021 Problem Code: R39.9; Problem Code Type: ICD-10; Not Available [facility] 3 04:47:29 Impaired fasting glycemia Completed 202011/26/2022 Problem Code: R73.01; Problem Code Type: ICD-10; Not Available [facility] 3 04:47:29 Bradycardia Completed 201601/14/2019 Problem Code: R00.1; Problem Code Type: ICD-10; Not Available [facility] 3 04:47:29 Disorder of skin and/or subcutaneous tissue Completed 201804/19/2019 Problem Code: L98.8; Problem Code Type: ICD-10; PADMA SANCHEZ APRN [address], [facility] [address] , [facility] 3 04:53:34 Chest pain Completed 201904/03/2020 Problem Code: R07.89; Problem Code Type: ICD-10; PADMA SANCHEZ APRN [address], [facility] [address] , [facility] 3 04:53:34 Acute apical periodontitis of pulpal origin Completed 200211/26/2022 Problem Code: 522.4; Problem Code Type: ICD-9; Not Available [facility] 3 04:47:30 Pain in right foot Completed 201907/11/2022 Problem Code: M79.671; Problem Code Type: ICD-10; Not Available [facility] 3 04:47:30 Cough Completed 201610/29/2017 Problem Code: R05; Problem Code Type: ICD-10; Not Available [facility] 3 04:47:30 Paresthesia Completed 201501/14/2019 Problem Code: R20.2; Problem Code Type: ICD-10; Not Available [facility] 3 04:47:30 Localized eruption of skin Completed 202110/22/2021 Problem Code: R21; Problem Code Type: ICD-10; Not Available [facility] 3 04:47:31 Pain of left elbow joint Completed 201408/08/2016 Problem Code: M25.522; Problem Code Type: ICD-10; Not Available [facility] 3 04:47:31 Diarrhea Completed 201707/28/2017 Problem Code: R19.7; Problem Code Type: ICD-10; Not Available [facility] 3 04:47:31 Diarrhea Completed 201701/14/2019 Problem Code: R19.7; Problem Code Type: ICD-10; Not Available [facility] 3 04:47:31 Impacted cerumen Completed 201702/07/2020 Problem Code: H61.20; Problem Code Type: ICD-10; Not Available [facility] 3 04:47:31 Exposure to communicable disease Completed 201902/07/2020 Problem Code: Z20.9; Problem Code Type: ICD-10; Not Available [facility] 3 04:47:32 Sciatica Completed 201910/22/2021 Problem Code: M54.30; Problem Code Type: ICD-10; Not Available [facility] 3 04:47:32 Noninfectious gastroenterit is Completed 201710/22/2021 Not Available [facility] 3 04:47:32 Diarrhea Completed 201707/28/2017 Problem Code: R19.7; Problem Code Type: ICD-10; Not Available [facility] 3 04:47:32 Lung field abnormal Completed 201607/01/2016 Problem Code: R91.8; Problem Code Type: ICD-10; Not Available [facility] 3 04:47:32 Smoker Active 2023 PADMA SANCHEZ APRN [address], [place], [address] , [facility]. 4 04:28:52 Cramp in lower leg associated with rest Active 2023 PADMA SANCHEZ APRN [address], [place], [address] , [facility]. 4 10:47:32 Neuropathy Active 2023 PADMA MACIELELL, [address], [place], [address] , [place] - [facility]. 4 10:53:32 Notes:*Problem Name: Tobacco s Use *ICD-10 Codes: *Problem Status: inactive *Comments: 08/07/2014 - Comments only - Padma Sanchez [employer]PECT[employer] - Is almost ready to quit. Discussed different treamtnet options to include chantix, wellbutrin, patches, lozenges, vapor. Discussed behavioral changes as well. He has no desires for medication management. he is going to work on behavioral changes. Current screening chest CT scan completed recently, reassuring results. *Note Date: 11/26/2011 Problem Notes None recorded. Medical Equipment None Reported. Allergies Allergen ID Allergen Name Allergen Category Reaction Reaction Severity Criticality Documentation Date Start Date Code Code System Note Provider Name and Address Organization Details Recorded Time 64279 Medicinal product containin g penicilli n and acting as antibacte rial agent (product) medicatio n Not available Not available Not available 01/09/20232001 87857 05 SNOMED Aller gyCod e: '8340 61'; Aller gyNam e: 'PENI CILLI N'; Aller gyCon ceptT ype: 'RX Norm' ; Not Available [facility] 3 16:07:24 Medications Name Sig Start Date Stop Date Status Note LastModified by Organization Details LastModified Time atorvasta tin 20 mg tablet TAKE ONE TABLET BY MOUTH EVERY DAY active Not Available Not Available No t Available nicotine 14 mg/24 hr daily transderm al patch APPLY ONE PATCH EXTERNAL LY ONCE DAILY TO HAIRLESS AREA AND ROTATE SKIN SITES (USE FOR 6 WEEKS) active Not Available Not Available No t Available clindamyc in HCl 300 mg capsule 1CAP four times daily 12/02 completed Not Available Not Available Not Available azithromy marty 250 mg tablet Take two tabs by mouth now, then take 1 tab by mouth daily x 4 days 06/24 completed Dental prescrip tion Not Available Not Available Not Available ibuprofen 800 mg tablet Take 1 tab by mouth three times daily as needed 03/12 completed Not Available Not Available Not Available ibuprofen 200 mg capsule 800 mg bid prn 03/12 completed Not Available Not Available Not Available Nicoderm CQ 21 mg/24 hr daily transderm al patch Apply 1 patch to skin once a day removing old patch before putting on new patch and also alternat ing arms/are as 09/21 completed Not Available Not Available Not Available lisinopri l 20 mg tablet TAKE ONE TABLET BY MOUTH EVERY DAY active Not Available Not Available No t Available gabapenti n 400 mg capsule Take 1 cap by mouth twice daily for 2 weeks, then 1 cap at bedtime fo 2 weeks, then stop 01/14 completed Not Available Not Available Not Available meloxicam 7.5 mg tablet Take 1 tab by mouth daily 09/21 completed Not Available Not Available Not Available Nicoderm CQ 7 mg/24 hr daily transderm al patch Apply 1 patch to skin once a day 01/30 completed Not Available Not Available Not Available calcium-m agnesium- zinc tablet 2016 active Not Available Not Available Not Avai lable Vitamins B Complex tablet take 1 tablet daily 2017 active Not Available Not Available Not Avai lable amitripty line 25 mg tablet Take 0.5-1 tablet at bedtime 05/13 completed Not Available Not Available Not Available Imodium A-D 2 mg tablet 01/14 completed [facility] Not Available Not Available Not Available hydrocodo ne-acetam inophen 500-5 mg tablet 1 TAB every six hours 01/03 completed Not Available Not Available Not Available Magtab 84 mg tablet,ex tended release TAKE ONE TABLET BY MOUTH AT BEDTIME active Not Available Not Available No t Available lisinopri l 10 mg tablet TAKE ONE TABLET BY MOUTH EVERY DAY active Not Available Not Available No t Available Iron (Ferrous Gluconate ) 325 mg tablet Take 1 tab by mouth daily 09/21 completed Not Available Not Available Not Available gabapenti n 300 mg capsule Take 1 tablet by mouth every night 10/22 completed Not Available Not Available Not Available omeprazol e 20 mg capsule,d elayed release TAKE ONE CAPSULE BY MOUTH ONCE A DAY active Not Available Not Available No t Available diltiazem CD 120 mg capsule,e xtended release 24 hr Take 1 capsule by mouth once a day as directed 2021 active Not Available Not Available Not Avai lable bisacodyl 5 mg tablet,de layed release TAKE 5MG BY MOUTH PER COLONOSC OPY INSTRUCT IONS PROVIDED BY ORDERING PROVIDER S OFFICE 09/21 completed Not Available Not Available Not Available aspirin 81 mg tablet Take 1 tablet by mouth once a day 2016 active Not Available Not Available Not Avai lable lisinopri l 5 mg tablet Take 1 tab by mouth daily 09/08 completed Not Available Not Available Not Available Cleocin-T 1 % topical gel RAMÓN BID 01/07 completed Not Available Not Available Not Available Aspir-81 mg tablet,de layed release Take 1 tab by mouth daily 2016 active Not Available Not Available Not Avai lable budesonid e DR - ER 3 mg capsule,d elayed,ex tended release 3 Tabs in the AM 01/14 completed By [facility]astro[facility]ology Not Available Not Available Not Available polyethyl hodan glycol 3350 17 gram/dose oral powder TAKE 17 GRAMS BY MOUTH PER COLONOSC OPY INSTRUCT IONS PROVIDED BY ORDERING PROVIDER S OFFICE 09/21 completed Not Available Not Available Not Available diazepam 5 mg tablet take 1 tab in afternoo n and one at bed time 03/12 completed Not Available Not Available Not Available iron 325 mg (65 mg iron) tablet Take 1 tablet by mouth as directed 4 x weej active Not Available Not Available No t Available Prilosec OTC 20 mg tablet,de layed release Take 1 tablet by mouth once a day active Not Available Not Available No t Available Spiriva with HandiHale r 18 mcg and inhalatio n capsules INHALE CONTENTS OF 1 CAPSULE VIA HANDIHAL ER DEVICE ONCE A DAY active Not Available Not Available No t Available Tindamax 500 mg tablet take 4 tabs a once 07/01 completed Not Available Not Available Not Available calcium-m agnesium- zinc 333 mg-133 mg-5 mg tablet 2016 active Not Available Not Available Not Avai lable BreatheRi te MDI Spacer Use 1 device as directed as directed 2020 active Not Available Not Available Not Avai lable ProAir HFA 90 mcg/actua tion aerosol inhaler Inhale 2 puff using inhaler every six hours 2020 active Not Available Not Available Not Avai lable cholecalc iferol (vitamin D3) 25 mcg (1,000 unit) tablet 2 tablet once a day 2017 active Not Available Not Available Not Avai lable omeprazol e 20 mg tablet,de layed release Take 1 tab by mouth daily. 02/06 completed Not Available Not Available Not Available Aleve 220 mg capsule 1 Tab twice daily 03/12 completed Not Available Not Available Not Available magnesium 400 mg (as magnesium oxide) capsule Take 1 tablet daily 09/25 completed Not Available Not Available Not Available polyethyl hodan glycol 3350 8.5 gram oral powder packet Take by oral route as directed . 09/21 completed Not Available Not Available Not Available bisacodyl (bulk) as directed active Not Available Not Available No t Available magnesium 400 mg (as magnesium oxide) tablet Take 1 tablet by mouth twice a day 11/07 completed Not Available Not Available Not Available Vitals Date Recorded Body height Body mass index (BMI) Body weight Body temperature Oxygen saturation Oxygen saturation in Arterial blood by Pulse oximetry Heart rate Respiratory rate Systolic blood pressure Diastolic blood pressure Provider Name and Address Organization Details Last Updated DateTime 4 180.34 cm 22.5 kg/m2 80315.3 7 g 97.3 [degF] 97 % 97 % 65 /min 16 /min 126 mm[Hg] 80 mm[Hg] Yu Mead RN [facility] 4 10:33:12 Social History Question Answer Notes LastModified by Organizat ion Details LastModified Time Tobacco Smoking Status Former Smoker PADMA SANCHEZ, [employer]PECT[employer]AL [address], [place], [address], [facility]. 09/22/2023 10:49:56 When Did You Quit Smoking? 1-5yearssinc elastcigaret te Information not available 09/22/2023 What Was The Date Of Your Most Recent Tobacco Screening? 09/22/2023 Information not available 09/22/2023 What Is Your Current Pack Years? 30ormorepack years Information not available 09/22/2023 At What Age Did You Start Smoking Tobacco? 13 Information not available 09/22/2023 How Much Tobacco Do You Smoke? 1 PPD Information not available 09/22/2023 Has Tobacco Cessation Counseling Been Provided? Yes Information not available 09/22/2023 On What Date Was Tobacco Cessation Counseling Provided? 09/22/2023 Information not available 09/22/2023 How Many Years Have You Smoked Tobacco? 49 Information not available 09/22/2023 Do You Or Have You Ever Used Any Other Forms Of Tobacco Or Nicotine? No Information not available 09/22/2023 Sex: Male Functional Status None recorded. Mental Status None recorded. Family History Relationship Description Onset Age of this Age Resolved Age Notes Father Family history of ca ncer of colon Notes:*Problem: Positive for CA (colon CA in MGF and father), diabetes, ETOH. No known FH heart disease or mental health problems. 01/12 Mat uncle of lung cancer, was a smoker. Mat cousin of cancer started in her eye. MGM had DM. Brother of pancreatic cancer. Medical History No medical history recorded. Immunizations Vaccine Type Date Status Provider Name and Address Organization Details Recorded Time Td (adult), 5 Lf tetanus toxoid, preservative free, adsorbed 08/06/2015 completed Not Available [facility] 01/09/2023 04:58:52 Tdap 02/16/2006 completed Not Available [facility] 04:58:52 Influenza, split virus, trivalent, preservative 01/03/2015 completed Not Available [facility] 01/09/2023 04:58:53 Influenza, split virus, quadrivalent, PF 11/27/2020 completed Not Available [facility] 01/09/2023 04:58:53 Influenza, split virus, quadrivalent, PF 01/14/2019 completed Not Available [facility] 01/09/2023 04:58:53 Influenza, split virus, quadrivalent, PF 01/16/2022 completed Not Available [facility] 01/09/2023 04:58:53 Influenza, split virus, quadrivalent, PF 02/07/2020 completed Not Available [facility] 01/09/2023 04:58:53 Influenza, split virus, quadrivalent, preservative 12/08/2016 completed Not Available [facility] 01/09/2023 04:58:53 Influenza, split virus, quadrivalent, preservative 02/24/2018 completed Not Available [facility] 01/09/2023 04:58:54 zoster recombinant 03/25/2019 completed Not Available [facility] 01/09/2023 04:58:54 zoster recombinant 07/28/2017 completed Not Available [facility] 01/09/2023 04:58:54 COVID-19, mRNA, LNP-S, PF, 100 mcg/0.5mL dose or 50 mcg/0.25mL dose 06/03/2020 completed Not Available [facility] 01/09/2023 04:58:54 COVID-19, mRNA, LNP-S, PF, 100 mcg/0.5mL dose or 50 mcg/0.25mL dose 07/01/2020 completed Not Available [facility] 01/09/2023 04:58:54 COVID-19, mRNA, LNP-S, PF, 100 mcg/0.5mL dose or 50 mcg/0.25mL dose 02/07/2021 completed Not Available [facility] 01/09/2023 04:58:54 Pneumococcal conjugate PCV20, polysaccharide ICD257 conjugate, adjuvant, PF 07/11/2022 completed Not Available [facility] 01/09/2023 04:58:55 pneumococcal polysaccharide PPV23 06/09/2014 completed Not Available [facility] 2022 04:58:55 Influenza, split virus, quadrivalent, PF 11/13/2022 completed [facility] [place] [facility] 16:11:24 Past Encounters Encounter ID Performer Location Encounter Start Date Encounter Closed Date Diagnosis/Indication Diagnosis SNOMED-CT Code [id number] PADMA SANCHEZ APRN [address] [address] 09/22/2023 10:22:17 09/22/2023 11:21:38 Prediabetes [id number] Joint pain [id number] Nonulcer dyspepsia 17603 07 Chronic ob structive pulmonary disease 35040371 Essential hypertension 00236970 Smoker [id number] Cramp in l ower leg associated with rest [id number] Neuropathy [id number] Health Concerns Section Related Observation LastModified by Organization Detai ls LastModified Time None Recorded Concern Status LastModified by Organization Details LastModified Time None Recorded Payers Encounter Date Sequence Insurance Name Policy Number Policy Gan Covered Member ID Gan Member ID Guarantor Name 09/22/2023 1 [facility] (MEDICAID) Jeremy Wilder Alfred [id number] Jeremy Alfred Notes Date Note Type Note Provider Name and Address Organization Details Recorded Time 09/22/2023 text/html HPI Notes: Is he re for follow-up Has concern about his left leg. Has numbness for 3 months. Has sensation but it hurst and feels different. Starts upper thigh to just below the knee; only on the lateral aspect. It is constant.Sometimes the left foot will get tingling. No back pain, no trauma to his back. has a pain to his right side, but this started about 3 days ago; feels different like it is inside, not a muscle. Arthralgia. Neck pain, osteoarthritis. Back pain. For pain. Takes Tylenol as needed. COPD. Tobacco abuse. Uses Spiriva daily, ProAir as needed. -- update 09.22.23. Doing nicoderm patches; is giving him nightmares; has to take off after 7pm. Started wearing nicotine patches about 3 months ago. Is on 14mg daily. Will decrease to 7mg in 3 weeks, he believes. Hypertension. Cardiomyopathy. Hyperlipidemia. Ventricular ectopy. Chest pain. Takes lisinopril, diltiazem, atorvastatin. Dyspepsia. Hyper magnesium. Takes Prilosec as needed. Takes magnesium supplement. Prediabetes. Working on lifestyle. PADMA SANCHEZ, INSPECTOR GENERAL [address], [place], [address], [facility], [facility]. 09/22/2023 12:45:37
--- OUTSIDE RECORDS SUMMARY | 2023-09-22 17:17 | XMS_ITS | Encounter Summary ---
Author Organization [facility] Address [address] [place] [address] Care Team Providers Care Hammer Runner Name Role Phone Unknown, Provider Primary Care Provider [phone] Encounter Details Date Type Department Care Team (Late st Contact Info) Description 04/06/2020 Lab Requisition [facility] [address] [place] [address] Outr Resulting Lab, Provider Social History Tobacco [...] Procedure Name Priority Date/Time Associated Diagnosis Comments LATIA ANTIBODY PANEL Routine 04/05/2020 13 :40 EST LYME AB Routine 04/05/2020 13:40 EST DOUBLE STRANDED DNA ANTIBODY, IGG Routine 04/05/2020 13:40 EST documented in this encounter Results * LYME AB (04/05/2020 13:40 EST) Lyme Ab Negative Negative 04/09/2020 10:[address] [facility] Comment:New 3rd generation a ssay in use 08/10/2019 Blood VENOUS BLOOD / Unknown 04/05/2020 13:40 EST 04/06/2020 16:28 EST Provider Outr Resulting Lab IMMUNOLOGY A ND SEROLOGY ORDERABLES Performing Organization Address [facility] de Phone Number [facility] [address] [place] [address] * ANTI DNA (DOUBLE STRANDED) (04/05/2020 13:40 EST) Anti-DNA (Double Stranded) <12.3 <30.0 IU/mL 04/10/2020 12:[address] [facility] Comment: ? Negative: ??<30.0 IU/mL ? Borderline Positive: ??30.0 - 75.0 IU/mL ? Positive: ??>75.0 IU/mL Results were obtained with the Fix8A Lite dsDNA SC HENRY assay on the [employer]. Blood VENOUS BLOOD / Unknown 04/05/2020 13:40 EST 04/06/2020 16:28 EST Provider Outr Resulting Lab IMMUNOLOGY A ND SEROLOGY ORDERABLES Performing Organization Address [facility] de Phone Number [facility] [address] [place] [address] * EXTRACTABLE NUCLEAR ANTIGEN PANEL (04/05/2020 13:40 EST) Pathologist [facility] SSA Antibody 6.1 <20.0 Units 04/10/2020 15:[address] [facility] Comment: ? Negative: <20.0 Units ? Weak Positive: 20.0 - 39.9 Units ? Moderate Positive: 40.0 - 80.0 Units ? Strong Positive: >80.0 Units Results were obtained with the [employer] QUANTA Lite SS-A HENRY. ??SS-A values obtained with different manufacturers' assay methods may not be used interchangeably. ??The magnitude of the reported IgG levels cannot be correlated to an endpoint titer. SSB Antibody 3.3 <20.0 Units 04/10/2020 15:17 [facility] Comment: ? Negative: <20.0 Units ? Weak Positive: 20.0 - 39.9 Units ? Moderate Positive: 40.0 - 80.0 Units ? Strong Positive: >80.0 Units Results were obtained with the Fix8A Lite SS-B HENRY. ??SS-B values obtained with different manufacturers' assay methods may not be used interchangeably. ??The magnitude of the reported IgG levels cannot be correlated to an endpoint titer. SM (Soliz) Antibody 2.9 <20.0 Units 04/10/2020 15:17 [facility] Comment: ? Negative: <20.0 Units ? Weak Positive: 20.0 - 39.9 Units ? Moderate Positive: 40.0 - 80.0 Units ? Strong Positive: >80.0 Units Results were obtained with the Fix8A [employer] Simple[employer] Sm HENRY. ??Sm values obtained with different manufacturers' assay methods may not be used interchangeably. ??The magnitude of the reported IgG levels cannot be correlated to an endpoint titer. FLEET MANAGER/DISPATCH Antibody 2.7 <20.0 Units 04/10/2020 15:17 [facility] Comment: ? Negative: <20.0 Units ? Weak Positive: 20.0 - 39.9 Units ? Moderate Positive: 40.0 - 80.0 Units ? Strong Positive: >80.0 Units Results were obtained with the [employer]a Lite FLEET MANAGER/DISPATCH HENRY. FLEET MANAGER/DISPATCH values obtained with different adaptive physical education teacher's assay methods may not be used interchangeaby. ??The magnitude of the reported IgG levels cannot be be correlated to an endpoint titer. A positive result in the Quanta Lite FLEET MANAGER/DISPATCH HENRY indicates the presence of antibodies reactive with the FLEET MANAGER/DISPATCH/Sm complex but cannot distinguish between anti-Sm and anti-FLEET MANAGER/DISPATCH activity. Blood VENOUS BLOOD / Unknown 04/05/2020 13:40 EST 04/06/2020 16:28 EST Provider Outr Resulting Lab IMMUNOLOGY A ND SEROLOGY ORDERABLES Performing Organization Address City/State/[facility] Co de Phone Number [facility] [address] [place] [phone] documented in this encounter Visit Diagnoses Not on filedocumented in this encounter Care Teams Hammer Runner Relationship Specialty Start Date End Date Unknown, Provider, PCP - General 07/31/16 documented as of this encounter
--- OUTSIDE RECORDS SUMMARY | 2023-09-22 17:17 | XMS_ITS | Encounter Summary ---
Author Organization [facility] Address [facility] [place] [address] Care Team Providers Care Hot Man Name Role Phone Stephanie Whipple CRISTINO Primary Care Provider [phone] Encounter Details Date Type Department Care Team (Latest Contact Info) Description 09/24/2015 - 09/24/2015 11:59 PM EDT Hospital Encounter Radiology [place] [address] Gab Stauffer MD [facility] [place] [address] Pain Discharge Disposition: Home Social History Tobacco Use [...] Associated Diagnosis Comments FILM LIBRARY STORAGE ONLY CT CHEST Routine 09/24/2015 12:00 AM EDT Pain documented in this encounter Results * Film Library- Storage Only CT Chest (09/24/2015 12:00 AM EDT) Narrative [facility] - 09/26/2015 3:01 PM EDT This exam is for storage only and is auto-finalizing. Gab Stauffer MD IMG FILM LIBRARY O RDERABLES [place], [place] documented in this encounter Visit Diagnoses Diagnosis Pain Generalized pain documented in this encounter Care Teams Hot Man Relationship Specialty Start Date End Date Stephanie Whipple APRN [address] [place] [address] PCP - General 06/12/14 08/01/19 documented as of this encounter
--- OUTSIDE RECORDS SUMMARY | 2023-09-22 17:17 | XMS_ITS | Encounter Summary ---
Author Organization [facility] Address [facility] [place] [address] Care Team Providers Care Process Supervisor Name Role Phone Padma Abrams CRISTINO Primary Care Provider [phone] Reason for Visit * Reason Comments Other Left side neck swell ing. Encounter Details Date Type Department Care Team (Late st Contact Info) Description 12/31/2021 3:00 PM EDT Office [place] [address] Pepe Soliz III, MD [facility] [place] [address] Neck mass Social History Tobacco Use Types [...] - Inhaled Oxygen Concentration - - Weight 67.9 kg (149 lb 11.2 oz) 12/31/2021 3:01 PM EDT Height 182.9 cm (6') 12/31/2021 3:01 PM EDT Body Mass Index 20.3 12/31/2021 3:01 PM EDT documented in this encounter Progress Notes * Pepe Soliz III, MD - 12/31/2021 3:00 PM EDT Images from the original note were not included. Otolaryngology Outpatient Consultation Note Date of Visit: 12/31/2021 Location of Visit: Otolaryngology Clinic, [facility] Patient: Jeremy Alfred ([id number]; 1960) Primary Care Provider: Padma Abrams APRN Referring Provider: No ref. provider found Reason for Visit: Jeremy is a 61 y.o. male seen at the request of Padma Geronimo in consultation for a neck mass. History of Present Illness: Jeremy reports that he was I his usual state of excellent health until last week when he noticed a lump under his left ear. Within a day it had enlarged and become extremely painful. He was give Keflex and Flagyl by the ED, and today he is feeling much better. Complicating the history is the he had a lesion on his left yarsani area frozen a few weeks before. Past Medical History: No past medical history on file. Past Surgical History: No past surgical history on file. Medications: Current Outpatient Medications on File Prior to Visit Medication Sig Dispense Refill ??? metroNIDAZOLE (Flagyl) 500 mg Tablet Take 500 mg by mouth 2 times daily. ??? cephALEXin (Keflex) 500 mg Capsule Take 500 mg by mouth 2 times daily. ??? acetaminophen (Tylenol) 500 mg Tablet Take 1,000 mg by mouth every 6 hours as needed for Pain. ??? ibuprofen (Advil) 200 mg Tablet Take 400 mg by mouth every 6 hours as needed for Pain. ??? Magtab 84 mg Tablet Sustained Release Take 1 tablet by mouth nightly. ??? Spiriva with HandiHaler 18 mcg Capsule, w/Inhalation Device INHALE CONTENTS OF 1 CAPSULE VIA HANDIHALER DEVICE ONCE A DAY ??? ergocalciferol, vitamin D2, (VITAMIN D ORAL) Take by mouth. ??? VITAMIN B COMPLEX-100 ORAL Take by mouth. ??? multivitamin Capsule Take 1 capsule by mouth daily. ??? atorvastatin (Lipitor) 20 mg Tablet TAKE ONE TABLET BY MOUTH AT BEDTIME ??? lisinopriL (Prinivil;Zestril) 10 mg Tablet TAKE ONE TABLET BY MOUTH EVERY DAY ??? naproxen sodium 220 mg Capsule Take 1 capsule by mouth as needed. ??? omeprazole (PRILOSEC) 20 mg Capsule, Delayed Release(E.C.) Take 20 mg by mouth as needed. ??? amitriptyline (ELAVIL) 10 mg Tablet Take 10 mg by mouth nightly. No current facility-administered medications on file prior to visit. Allergies: Pcn [penicillins] Social History: Lives [place] [address], Tobacco:Yes Alcohol:Yes Other: Immunizations UTD. Family History: No family history on file. Review of Systems: Pertinent positive findings discussed above. No other findings on review of constitutional, visual, cardiovascular, respiratory, gastrointestinal, genitourinary, musculoskeletal, dermatologic, neurological, psychiatric, endocrine, hematologic or immunologic systems. Physical Examination: Vitals: Height 182.9 cm (6'), weight 67.9 kg (149 lb 11.2 oz). General: No acute distress. Face: Full and symmetric facial movement. No dysmorphic facial features. Eyes: Periocular structures and conjunctiva healthy without lesions. Pupils are equal, round, and reactive to light. Extraocular movement is full and intact. No dysconjugate gaze. No evidence of nystagmus. Ears: Auricles symmetric without lesions. External auditory canals clear. Right tympanic membrane normal, right middle ear nomal. Left tympanic membrane normal, left middle ear normal.. Nose: Patent anteriorly with adequate airflow, healthy pink mucosa. Septum is midline without significant deviation. Inferior turbinates normal. Mouth: Lips and gingiva pink, moist, without lesions. Dentition healthy. Tongue and floor of mouth soft without lesions or masses. Hard palate without lesions. Pharynx: Soft palate without lesions. Uvula is intact. Oropharynx symmetric. Larynx: Vocal mobility and morphology normal. Neck: Soft, supple, without significant lymphadenopathy. Thyroid gland without masses or asymmetry.Trachea midline without deviation. 2 cm mass upper SCM, mildly tender, firm, not fluctuant, mobile. Lymphatic: Negative for additional peripheral lymphadenopathy or lymphedema. Neurologic: Cranial nerves II-XII intact and symmetric. Imaging Studies (Personally reviewed by me) Impression: Lymphadenitis, possibly related to his dermatologic procedure, but in any case improvigwell on the chosen antibiotics. Recommendations: Watchful waiting. We will see him agai in three weeks; if the mass persists FNA will be performed. documented in this encounter Plan of Treatment Not on file documented as of this encounter Visit Diagnoses Diagnosis Neck mass Swelling, mass, or lump in head and neck documented in this encounter Care Teams Process Supervisor Relationship Specialty Start Date End Date Padma Abrams APRN [address] [place] [address] PCP - General Family Medicine 11/02/21 documented as of this encounter
--- OUTSIDE RECORDS SUMMARY | 2023-09-22 17:17 | XMS_ITS | Encounter Summary ---
[place] [address] Care Team Providers Care Engineering Teacher Name Role Phone Padma Abrams APRN Primary Care Provider [phone] Encounter Details Date Type Department Care Team (Latest Contact Info) Description 01/28/2022 Travel Social History Tobacco Use Types Packs/Day Years [...] on filedocumented in this encounter Care Teams Engineering Teacher Relationship Specialty Start Date End Date Padma Abrams APRN [address] [place] [address] PCP - General Family Medicine 11/02/21 documented as of this encounter
--- OUTSIDE RECORDS SUMMARY | 2023-09-22 17:17 | XMS_ITS | Encounter Summary ---
Author Organization [place] [address] Care Team Providers Care Vocational Rehabilitation Teacher Name Role Phone Padma Abrams APRN Primary Care Provider [phone] Encounter Details Date Type Department Care Team (Late st Contact Info) Description 12/27/2021 4:15 PM EDT Ancillary Procedure [place] [address] Deniz Sloiz, [place] [address] Social History Tobacco Use Types Packs/Day Years [...] Diagnosis Comments FILM LIBRARY STORAGE ONLY CT HEAD AND SPINE Routine 12/27/2021 4:10 PM EDT documented in this encounter Results * Film Library- Storage Only CT Head And Spine (12/27/2021 4:10 PM EDT) Narrative [facility] - 12/27/2021 4:10 PM EDT This exam is auto-finalizing. It's purpose is for storage only. Deniz Soliz PhD IMG FILM LIBRARY ORD ERABLES [place], [place] documented in this encounter Visit Diagnoses Not on filedocumented in this encounter Care Teams Vocational Rehabilitation Teacher Relationship Specialty Start Date End Date Padma Abrams APRN [address] [place] [address] PCP - General Family Medicine 11/02/21 documented as of this encounter
--- OUTSIDE RECORDS SUMMARY | 2023-09-22 17:17 | XMS_ITS | Encounter Summary ---
[place] [address] Care Team Providers Care Lime Slaker Name Role Phone Padma Abrams APRN Primary Care Provider [phone] Encounter Details Date Type Department Care Team (Latest Contact Info) Description 12/31/2021 Travel Social History Tobacco Use Types Packs/Day [...] on filedocumented in this encounter Care Teams Lime Slaker Relationship Specialty Start Date End Date Padma Abrams APRN [address] [place] [address] PCP - General Family Medicine 11/02/21 documented as of this encounter
--- OUTSIDE RECORDS SUMMARY | 2023-09-22 17:17 | XMS_ITS | Encounter Summary ---
[place] [address] Care Team Providers Care Sales Operations Associate Name Role Phone Stephanie Whipple CRISTINO Primary Care Provider [phone] Encounter Details Date Type Department Care Team (Latest Contact Info) Description 07/14/2014 10:20 AM EDT - 07/14/2014 11:59 PM EDT Hospital [place] [id number] CLINIC, DR LESLI Abrams, Padma Johnston APRN [address] [place] [address] Discharge Disposition: Home Social History Tobacco Use [...] Procedure Name Priority Date/Time Associated Diagnosis Comments CT CHEST WO CONTRAST (GENERIC) Routine 07/14/2014 10:30 AM EDT documented in this encounter Results * CT chest WO contrast (07/14/2014 10:30 AM EDT) Anatomical Region Laterality Modality Chest Computed Tomogra phy 07/14/2014 10:3 0 AM EDT Impressions 07/14/2014 11:47 AM EDT IMPRESSION: Sub-5 mm nodules in right lung. Probability of malignancy much less then 1%(Tania at al. Probability of cancer in pulmonary nodules detected on first screening CT. N Engl J Med 2013; 369:910-9.). Per Fleischner Society guidelines recommend follow-up low-dose chest CT limited from jaqueline to the dome of diaphragm in 12 months. This report was reviewed by Baljeet Melendez at 07/14/2014 11:41 AM Film and interpretation reviewed by the attending Narrative 07/14/2014 11:47 AM EDT EXAMINATION: CT Chest Without Contrast CLINICAL HISTORY: tobacco abuse disorder screening for lung ca TECHNIQUE: Helical CT of the chest without intravenous contrast. Multiplanar coronal and sagittal reformats were obtained. COMPARISON: None FINDINGS: There is a punctate 2 mm nodule within the right lower lobe (series 4 image 287). There is a 4 mm oblong well-circumscribed pulmonary nodule in the right upper lobe (series 4 image 204) which most likely represents an intraparenchymal lymph node. The lungs are otherwise clear. No pleural effusion. There are multiple small sub-5 mm axillary lymph nodes bilaterally. No mediastinal, axillary, or hilar lymphadenopathy. The heart is normal in size with no pericardial effusion. Visualized portions of the abdomen are within normal limits. There is small area of hypoattenuation surrounding the falciform ligament, most likely area of focal fatty infiltration. No suspicious osseous lesions. Procedure Note Baljeet Melendez MD - 07/14/2014 EXAMINATION: CT Chest Without Contrast CLINICAL HISTORY: tobacco abuse disorder screening for lung ca TECHNIQUE: Helical CT of the chest without intravenous contrast.Multiplanar coronal and sagittal reformats were obtained. COMPARISON: None FINDINGS: There is a punctate 2 mm nodule within the right lower lobe (series 4image 287). There is a 4 mm oblong well-circumscribed pulmonary nodule in theright upper lobe (series 4 image 204) which most likely represents anintraparenchymal lymph node. The lungs are otherwise clear. No pleural effusion. Thereare multiple small sub-5 mm axillary lymph nodes bilaterally. Nomediastinal, axillary, or hilar lymphadenopathy. The heart is normal in size with no pericardial effusion. Visualized portions of the abdomen are within normal limits. There issmall area of hypoattenuation surrounding the falciform ligament, most likely area offocal fatty infiltration. No suspicious osseous lesions. IMPRESSION IMPRESSION: Sub-5 mm nodules in right lung. Probability of malignancy much less then 1%(Tania at al. Probability of cancer in pulmonary nodules detectedon first screening CT. N Engl J Med 2013; 369:910-9.). Per Fleischner Society guidelines recommend follow-up low-dose chest CTlimited from jaqueline to the dome of diaphragm in 12 months. This report was reviewed by Baljeet Melendez at 07/14/2014 11:41 AM Film and interpretation reviewed by the attending Padma Abrams APRN IMG CT ORDERABLES documented in this encounter Visit Diagnoses Not on filedocumented in this encounter Care Teams Sales Operations Associate Relationship Specialty Start Date End Date Stephanie Whipple APRN [address] [place] [address] PCP - General 06/12/14 08/01/19 documented as of this encounter
--- OUTSIDE RECORDS SUMMARY | 2023-09-22 17:17 | XMS_ITS | Data Portability ---
Author Organization [place] - [facility] Address [address] [facility] [place] [address] Assessment Encounter Date Assessment Date Assessment LastModified by Organization Details LastModified Time 09/22/2023 09/22/2023 Flu vaccine: current Comirnaty: declines Td: current - due 2025 PCV20: completed Shingrix: completed RSV: counseled to get at local pharmacy as desires this fall CRC: currentcompleted 2017 AAA Screening: n/a Follow-up in 6 Months. Call or RTO sooner if needs arise. [email or web address] Not available 09/22/2023 11:00:21 Plan of Treatment Reminders Order Date Submit Date Provider Last Modified By Organization Details Last Modified Time Details Appointments Office Visit 2023 10:30A M PADMA SANCHEZ Not available Not available Not available Follow Up 2024 10:30A M PADMA SANCHEZ Not available Not available Not available Lab magnesium , serum or plasma 2023 024 [email or web address] [facility] (Registration ), [address] [place] [address] [facility] [place], [address], 09/22/2023 12:27:33 vitamin B12, serum 2023 024 [email or web address] [facility] (Registration ), [address] [place] [address] [place], [address], 09/22/2023 12:27:33 HbA1c (hemoglob in A1c), blood 2023 024 [email or web address] [facility] (Registration ), [address] [place] [address] [place], [address], 09/22/2023 12:27:33 CMP, serum or plasma 2023 024 [facility] (Registration ), [address] [place] [address] [place], [address], 09/22/2023 15:49:29 lipid panel, serum [address] Laboratory (Registration ), [address] [place] [address] [place], [address], 09/22/2023 12:27:33 TSH, serum, reflex free T4 [address] Laboratory (Registration ), [address] [place] [address] [place], [address], 09/22/2023 12:27:[address] referral - could benefit from EMG studies. 2023 024 [facility], [address] [place] [address] [place], [address], 09/22/2023 13:55:21 Procedures None recorded. Surgeries None recorded. Imaging LDCT, chest, for lung cancer screening 2023 024 [facility] (Radiology), [address] [place] [address] [place], [address], 09/22/2023 14:10:50 Medication Orders None recorded. Patient TargetsNo targets recorded. Patient Instructions Encounter Date Encounter Id Patient Instructions Last Modified By Organization Details Last Modified Time 09/22/2023 [id number] starting a weigh t loss plan: care [...] Problem Code Type: ICD-10; [address], [place], [address] , [facility] 3 04:53:33 Periodontal disease Active 2002 Problem Code: K05.6; Problem Code Type: ICD-10; [address], [place], [address] , [facility] 3 04:53:33 Osteoarthriti s Active 201410/29/2017 - [...] Problem Code Type: ICD-10; [address], [place], [address] , [facility] 3 04:53:34 Disorder of lung Active 2014 Problem Code: J98.4; Problem Code Type: ICD-10; [address], [place], [address] , [facility] 3 04:53:33 Chronic obstructive pulmonary disease Active 201601/14/2019 - Comments only - Padma Sanchez CONFIGURATOR - asymptomatic. monitor for now. start inhalers as indicated. Problem Code: J44.9; Problem Code Type: ICD-10; [address], [place], [address] , [facility] 3 04:53:33 Cardiomyopath y Active 2016 Problem Code: I42.9; Problem Code Type: ICD-10; [address], [place], [address] , [facility] 3 04:53:34 Neck pain Active 201602/07/2020 - Comments only - Padma Sanchez CONFIGURATOR - with back pain. worsening right now. Encouraged rest, ice, heat, gentle stretching, compresses. CBD oil as desires. If not improving, refer to PT. Problem Code: M54.2; Problem Code Type: ICD-10; [address], [place], [address] , [facility] 3 04:53:34 Screening for disorder Completed 201711/29/2017 Problem Code: Z13.9; Problem Code Type: ICD-10; Not Available [facility] 3 04:47:26 Nonulcer dyspepsia Active 201801/14/2019 - Comments only - Padma Sanchez APRN - no breakthrough indigestion. Decrease to QOD for 2 weeks and if no breakthrough reflux, can fully stop. Problem Code: K30; Problem Code Type: ICD-10; [address], [place], [address] , [facility] 3 04:53:34 Pain in thoracic spine Active 2019 Problem Code: M54.9; Problem Code Type: ICD-10; [address], [place], [address] , [facility] 3 04:53:33 Joint pain Active 202004/09/2020 - [...] Problem Code Type: ICD-10; [address], [facility] [address] , [facility] 3 04:53:34 HIV screening Completed 202004/10/2020 Problem Code: Z11.4; Problem Code Type: ICD-10; Not Available [facility] 3 04:47:26 Prediabetes Active 2020 Problem Code: R73.03; Problem Code Type: ICD-10; [address], [facility] [address] , [facility] 3 04:53:34 Hypomagnesemi a Active 2020 Problem Code: E83.42; Problem Code Type: ICD-10; [address], [facility] [address] , [facility] 3 04:53:33 Chest pain Active 2020 Problem Code: R07.9; Problem Code Type: ICD-10; [address], [place], [address] , [facility] 3 04:53:33 Ventricular premature complex Active 2020 Problem Code: I49.3; Problem Code Type: ICD-10; [address], [facility] [address] , [facility] 3 04:53:33 Effusion of joint of left knee Completed 202003/16/2021 Problem Code: M25.462; Problem Code Type: ICD-10; Not Available [facility] 3 04:47:27 Hyperlipidemi a Active 2021 Problem Code: E78.5; Problem Code Type: ICD-10; [address], [facility] [address] , [facility] 3 04:53:34 Acute upper respiratory infection Completed 202107/14/2021 Problem Code: J06.9; Problem Code Type: ICD-10; Not Available [facility] 3 04:47:27 Disorder of skin and/or subcutaneous tissue Active 2021 Problem Code: L98.9; Problem Code Type: ICD-10; [address], [facility] [address] , [facility] 3 04:53:34 Essential hypertension Active 2022 Problem Code: I10; Problem Code Type: ICD-10; [address], [facility] [address] , [facility] 3 04:53:34 Family history of malignant neoplasm of digestive organ Active 2022 Problem Code: Z80.0; Problem Code Type: ICD-10; [address], [facility] [address] , [facility] 3 04:53:34 Tobacco user Completed 201111/26/2022 02/05/2016 - Comments only - Padma Sanchez APRN - has quit date set. Encouraged behavior changes which has been effective for him. Has been smoke free for 2 days. Encouraged full smoking cessation. 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 Discussed ill effect on his health, in particular his COPD and cardiomyopath y. Encouraged cessation Problem Code: Z87.891; Problem Code Type: ICD-10; Not Available [facility] 3 04:47:28 Pain of left hand Completed 201907/11/2022 Problem Code: M79.642; Problem Code Type: ICD-10; Not Available [facility] 3 04:47:28 Pre-surgery testing Completed 201704/28/2017 Problem Code: Z01.812; Problem Code Type: ICD-10; Not Available [facility] 3 04:47:29 Generalized enlarged lymph nodes Completed 202105/12/2022 Problem Code: R59.1; Problem Code Type: ICD-10; Not Available [facility] 3 04:47:29 Pain of right elbow joint Completed 201601/14/2019 Problem Code: M25.521; Problem Code Type: ICD-10; Not Available [facility] 3 04:47:29 Genitourinary symptoms Completed 202010/22/2021 Problem Code: R39.9; Problem Code Type: ICD-10; Not Available [facility] 3 04:47:29 Impaired fasting glycemia Completed 202011/26/2022 Problem Code: R73.01; Problem Code Type: ICD-10; Not Available [facility] 3 04:47:29 Bradycardia Completed 201601/14/2019 Problem Code: R00.1; Problem Code Type: ICD-10; Not Available [facility] 3 04:47:29 Disorder of skin and/or subcutaneous tissue Completed 201804/19/2019 Problem Code: L98.8; Problem Code Type: ICD-10; PADMA SANCHEZ APRN [address], [place], [address] , [facility] 3 04:53:34 Chest pain Completed 201904/03/2020 Problem Code: R07.89; Problem Code Type: ICD-10; PADMA SANCHEZ APRN [address], [place], [address] , [facility] 3 04:53:34 Acute apical periodontitis of pulpal origin Completed 200211/26/2022 Problem Code: 522.4; Problem Code Type: ICD-9; Not Available [facility] 3 04:47:30 Pain in right foot Completed 201907/11/2022 Problem Code: M79.671; Problem Code Type: ICD-10; Not Available [facility] 3 04:47:30 Cough Completed 201610/29/2017 Problem Code: R05; Problem Code Type: ICD-10; Not Available [facility] 3 04:47:30 Paresthesia Completed 201501/14/2019 Problem Code: R20.2; Problem Code Type: ICD-10; Not Available [facility] 3 04:47:30 Localized eruption of skin Completed 202110/22/2021 Problem Code: R21; Problem Code Type: ICD-10; Not Available [facility] 3 04:47:31 Pain of left elbow joint Completed 201408/08/2016 Problem Code: M25.522; Problem Code Type: ICD-10; Not Available [facility] 3 04:47:31 Diarrhea Completed 201707/28/2017 Problem Code: R19.7; Problem Code Type: ICD-10; Not Available [facility] 3 04:47:31 Diarrhea Completed 201701/14/2019 Problem Code: R19.7; Problem Code Type: ICD-10; Not Available [facility] 3 04:47:31 Impacted cerumen Completed 201702/07/2020 Problem Code: H61.20; Problem Code Type: ICD-10; Not Available [facility] 3 04:47:31 Exposure to communicable disease Completed 201902/07/2020 Problem Code: Z20.9; Problem Code Type: ICD-10; Not Available [facility] 3 04:47:32 Sciatica Completed 201910/22/2021 Problem Code: M54.30; Problem Code Type: ICD-10; Not Available [facility] 3 04:47:32 Noninfectious gastroenterit is Completed 201710/22/2021 Not Available [facility] 3 04:47:32 Diarrhea Completed 201707/28/2017 Problem Code: R19.7; Problem Code Type: ICD-10; Not Available [facility] 3 04:47:32 Lung field abnormal Completed 201607/01/2016 Problem Code: R91.8; Problem Code Type: ICD-10; Not Available [facility] 3 04:47:32 Smoker Active 2023 PADMA SANCHEZ APRN [address], [place], [address] , [facility]. 4 04:28:52 Cramp in lower leg associated with rest Active 2023 PADMA SANCHEZ APRN [address], [place], [address] , [facility] 4 10:47:32 Neuropathy Active 2023 PADMA LAURA, [address], [place], [address] , [facility] 4 10:53:32 Notes:*Problem Name: Tobacco s Use *ICD-10 Codes: *Problem Status: inactive *Comments: 08/07/2014 - Comments only - Padma Sanchez CONFIGURATOR - Is almost ready to quit. Discussed [...] Name and Address Organization Details Recorded Time 15460 Medicinal product containin g penicilli n and acting as antibacte rial agent (product) medicatio n Not available Not available Not available 01/09/20232001 69656 05 SNOMED Aller gyCod e: '8340 61'; Aller gyNam e: 'PENI CILLI N'; Aller gyCon ceptT ype: 'RX Norm' ; Not Available [facility] 3 16:07:24 Medications Name Sig Start Date [...] Updated DateTime 4 180.34 cm 22.5 kg/m2 21194.3 7 g 97.3 [degF] 97 % 97 % 65 /min 16 /min 126 mm[Hg] 80 mm[Hg] Yu Mead RN [place] - [facility] 4 10:33:12 Social History Question Answer Notes LastModified by Organizat ion Details LastModified Time Tobacco Smoking Status Former Smoker PADMA SANCHEZ, CONFIGURATOR [address], [place], [address], [facility]. 09/22/2023 10:49:56 When Did You Quit [...] preservative free, adsorbed 08/06/2015 completed Not Available [facility] 01/09/2023 04:58:52 Tdap 02/16/2006 completed Not Available [facility] 04:58:52 Influenza, split virus, trivalent, preservative 01/03/2015 completed Not Available [facility] 01/09/2023 04:58:53 Influenza, split virus, quadrivalent, PF 11/27/2020 completed [facility] Available [facility] 01/09/2023 04:58:53 Influenza, split virus, quadrivalent, PF 01/14/2019 completed Not Available [facility] 01/09/2023 04:58:53 Influenza, split virus, quadrivalent, PF 01/16/2022 completed Not Available [facility] 01/09/2023 04:58:53 Influenza, split virus, quadrivalent, PF 02/07/2020 completed Not Available [facility] 01/09/2023 04:58:53 Influenza, split virus, quadrivalent, preservative 12/08/2016 completed Not Available [facility] 01/09/2023 04:58:53 Influenza, split virus, quadrivalent, preservative 02/24/2018 completed Not Available [facility] 01/09/2023 04:58:54 zoster recombinant 03/25/2019 completed Not Available [facility] 01/09/2023 04:58:54 zoster recombinant 07/28/2017 completed Not Available [facility] 01/09/2023 04:58:54 COVID-19, mRNA, LNP-S, PF, 100 mcg/0.5mL dose or 50 mcg/0.25mL dose 06/03/2020 completed Not Available [facility] 01/09/2023 04:58:54 COVID-19, mRNA, LNP-S, PF, 100 mcg/0.5mL dose or 50 mcg/0.25mL dose 07/01/2020 completed Not Available [facility] 01/09/2023 04:58:54 COVID-19, mRNA, LNP-S, PF, 100 mcg/0.5mL dose or 50 mcg/0.25mL dose 02/07/2021 completed Not Available [facility] 01/09/2023 04:58:54 Pneumococcal conjugate PCV20, polysaccharide [id number] conjugate, adjuvant, PF 07/11/2022 completed Not Available [facility] 01/09/2023 04:58:55 pneumococcal polysaccharide PPV23 06/09/2014 completed Not Available [facility] 2022 04:58:55 Influenza, split virus, quadrivalent, PF 11/13/2022 completed ZAHRAA TAYLOR [place] [facility]. 02/10/2023 16:11:24 Past Encounters Encounter ID Performer Location Encounter Start Date Encounter Closed Date Diagnosis/Indication Diagnosis SNOMED-CT Code [id number] PADMA SANCHEZ APRN [address] [address] 09/22/2023 10:22:17 09/22/2023 11:21:38 Prediabetes 533128222 Joint pain 75122587 Nonulcer dyspepsia 60674 07 Chronic ob structive pulmonary disease 90940459 Essential hypertension 29186958 Smoker 69310617 Cramp in l ower leg associated with rest 848040578 Neuropathy 625495171 Health Concerns Section Related Observation LastModified by Organization Detai ls LastModified Time None Recorded Concern Status LastModified by Organization Details LastModified Time None Recorded Advance Directives Directive None Recorded Payers Encounter Date Sequence Insurance Name Policy Number Policy Gan Covered Member ID Gan Member ID Guarantor Name 09/22/2023 1 [facility] (MEDICAID) Jeremy Alfred [id number] Jeremy Alfred Notes Date Note Type Note [...] supplement. Prediabetes. Working on lifestyle. PADMA SANCHEZ, CONFIGURATOR [address], [place], [address], [facility]. 09/22/2023 12:45:37
--- OUTSIDE RECORDS SUMMARY | 2023-09-22 17:17 | XMS_ITS | Encounter Summary ---
Author Organization [facility] [place] [address] Care Team Providers Care Certified Dental Assistant Name Role Phone WhippleStephanie CRISTINO Primary Care Provider [phone] Encounter Details Date Type Department Care Team (Latest Contact Info) Description 11/13/2015 12:10 PM EDT - 11/13/2015 11:59 PM EDT Hospital Encounter [place] [address] Padma Abrams APRN [address] [place] [address] Pulmonary nodule Discharge Disposition: Home Social History Tobacco Use [...] as of this encounter Plan of Treatment Pending Results Name Type Priority Associated Diagnoses Date /Time Request For 2nd Read CT Chest Imaging Routine Pulmonary nodule 11/13/2015 12:11 PM EDT Scheduled Orders Name Type Priority Associated Diagnoses Orde r Schedule Request For 2nd Read CT Chest Imaging Routine Pulmonary nodule 1 Occurrences starting 11/13/2015 until 11/13/2015 documented as of this encounter Visit Diagnoses Diagnosis Pulmonary nodule Solitary pulmonary nodule documented in this encounter Care Teams Certified Dental Assistant Relationship Specialty Start Date End Date Stephanie Whipple APRN [address] [place] [address] PCP - General 06/12/14 08/01/19 documented as of this encounter
--- OUTSIDE RECORDS SUMMARY | 2023-09-22 17:17 | XMS_ITS | Clinical Summary ---
Author Organization [facility] Address [facility] [place] [address] Care Team Providers Care Scalp Treatment Operator Name Role Phone Padma Abrams CRISTINO Primary Care Provider [phone] Allergies Active Allergy Reactions Criticality Noted Date Comments Penicillins 07/14/2014 Unsure-reaction per parent report Tolerates cephalexin Medications Medication Sig Dispensed Refills Start Date End Date Status amitriptyline (ELAVIL) 10 mg Tablet Take 10 mg by mouth nightly. Active naproxen sodium 220 mg Capsule Take 1 capsule by mouth as needed. Active omeprazole (PRILOSEC) 20 mg Capsule, Delayed Release(E.C.) Take 20 mg by mouth as needed. Active atorvastatin (Lipitor) 20 mg Tablet TAKE ONE TABLET BY MOUTH AT BEDTIME 05/19/2019 Active lisinopriL (Prinivil;Zestril) 10 mg Tablet TAKE ONE TABLET BY MOUTH EVERY DAY 04/30/2019 Active Magtab 84 mg Tablet Sustained Release Take 1 tablet by mouth nightly. 11/07/2021 Active Spiriva with HandiHaler 18 mcg Capsule, w/Inhalation Device INHALE CONTENTS OF 1 CAPSULE VIA HANDIHALER DEVICE ONCE A DAY 08/01/2021 Active ergocalciferol, vitamin D2, (VITAMIN D ORAL) Take by mouth. Active VITAMIN B COMPLEX-100 ORAL Take by mouth. Acti ve multivitamin Capsule Take 1 capsule by mouth daily. Active metroNIDAZOLE (Flagyl) 500 mg Tablet Take 500 mg by mouth 2 times daily. 12/27/2021 Active cephALEXin (Keflex) 500 mg Capsule Take 500 mg by mouth 2 times daily. 12/27/2021 Active acetaminophen (Tylenol) 500 mg Tablet Take 1,000 mg by mouth every 6 hours as needed for Pain. Active ibuprofen (Advil) 200 mg Tablet Take 400 mg by mouth every 6 hours as needed for Pain. Active Active Problems Problem Noted Date Diagnosed Date Joint pain 07/14/2014 Immunizations Name Administration Dates Next Due Pneumococcal Conjugate (Prevnar 13) 06/14/2014,0 06/14/2012 Social History Tobacco Use Types Packs/Day Years Used Date Smoking Tobacco: Every Day Cigarettes 1 40 Smokeless Tobacco: Never Sex and Gender Information Value Date Recorded Sex Assigned at Not on file Gender Identity Not on file Sexual Orientation Not on file Last Filed Vital Signs Vital Sign Reading [...] Mass Index 20.34 01/28/2022 1:12 PM EST Plan of Treatment Health Maintenance Due Date Last Done Comments CT Colonography 1962 Colonoscopy 1962 Colorectal Cancer Screening 1962 FIT DNA 1962 FIT 1962 Sigmoidoscopy (10 year) with FIT yearly 1962 Sigmoidoscopy 1962 HIV screen 1980 Hepatitis C Screening 1980 Tdap adult 1981 Tetanus vaccine 1981 Zoster vaccine (1 of 2) 2012 Pneumococcal Vaccine: At-Ris k 5-64yrs (2 of 2 - PPSV23 or PCV20) 08/09/2014 06/14/2014, 06/14/2012 Advance Directive 2017 Covid-19 Vaccine (1 - season) 2022 Influenza (Flu) vaccine (1 o f 1 - Influenza standard series) 11/01/2023 Care Teams Scalp Treatment Operator Relationship Specialty Start Date End Date Padma Abrams APRN [address] [place] [address] PCP - General Family Medicine 11/02/21
--- OUTSIDE RECORDS SUMMARY | 2023-09-22 17:18 | XMS_ITS | Encounter Summary ---
[place] [address] Care Team Providers Care Pump Installer Name Role Phone Stephanie Whipple APRN Primary Care Provider [phone] Encounter Details Date Type Department Care Team (Late st Contact Info) Description 06/12/[address] [place] [address] Padma Abrams APRN [address] [place] [address] Social History Tobacco Use Types Packs/Day Years Used Date Smoking Tobacco: Never Assessed Sex and Gender Information Value Date Recorded Sex Assigned at Not on file Gender Identity Not on file Sexual Orientation Not on file documented as of this encounter Plan of Treatment Not on file documented as of this encounter Visit Diagnoses Not on filedocumented in this encounter Care Teams Pump Installer Relationship Specialty Start Date End Date Stephanie Whipple APRN [address] [place] [address] PCP - General 06/12/14 08/01/19 documented as of this encounter
--- OUTSIDE RECORDS SUMMARY | 2023-09-22 17:18 | XMS_ITS | Encounter Summary ---
[place] [address] Care Team Providers Care Esthetician/Skin Therapist Name Role Phone Stephanie Whipple APRN Primary Care Provider [phone] Encounter Details Date Type Department Care Team (Late st Contact Info) Description 06/12/[address] [place] [address] Gabby Soriano Social History Tobacco Use Types Packs/Day Years Used Date Smoking Tobacco: Never Assessed Sex and Gender Information Value Date Recorded Sex Assigned at Not on file Gender Identity Not on file Sexual Orientation Not on file documented as of this encounter Plan of Treatment Not on file documented as of this encounter Visit Diagnoses Not on filedocumented in this encounter Care Teams Esthetician/Skin Therapist Relationship Specialty Start Date End Date Stephanie Whipple APRN [address] [place] [address] PCP - General 06/12/14 08/01/19 documented as of this encounter
--- OUTSIDE RECORDS SUMMARY | 2023-09-22 17:18 | XMS_ITS | Encounter Summary ---
Author Organization [facility] Address [facility] [place] [address] Care Team Providers Care Lean Manager Name Role Phone Stephanie Whipple CRISTINO Primary Care Provider [phone] Encounter Details Date Type Department Care Team (Late st Contact Info) Description 06/16/2014 Notes Only XRay at [address] [place] [address] Hailey Preciado Social History Tobacco Use Types Packs/Day Years Used Date Smoking Tobacco: Never Assessed Sex and Gender Information Value Date Recorded Sex Assigned at Not on file Gender Identity Not on file Sexual Orientation Not on file documented as of this encounter Progress Notes * Haliey Preciado - 06/16/2014 12:57 PM EDT I was asked to review an order for a CT Chest for this patient as it appeared to be ordered as a diagnostic CT but with an indication for lung cancer screening. The provider's office was contacted on06/13/2014; I spoke with Lesley to inform her that this patient was not eligible for CT Chest Lung Cancer Screening as he is less than 55 years of age. She relayed that they did receive prior authoriz ation from [place] Medicaid using tobacco use and screening for lung cancer. I reviewed this case with Dr. Baljeet Melendez; he is agreeable to leaving it as ordered. However, we have informed the provider to beware that screening for lung cancer in asymptomatic patients may not be covered if the patient is not eligible. documented in this encounter Plan of Treatment Not on file documented as of this encounter Visit Diagnoses Not on filedocumented in this encounter Care Teams Lean Manager Relationship Specialty Start Date End Date Stephanie Whipple APRN [address] [place] [address] PCP - General 06/12/14 08/01/19 documented as of this encounter
== END 2023-09-22 17:16 | disposition home or self-care (01) ==
LOC: NCHCN 17:15
PROVIDERS: PCP Nurse Practitioner Family; Visit Provider Nurse Practitioner Family
DX: I10 Essential (primary) hypertension (principal); K30 Functional dyspepsia; R73.03 Prediabetes; R79.89 Other specified abnormal findings of blood chemistry; G62.9 Polyneuropathy, unspecified; E78.5 Hyperlipidemia, unspecified; K21.9 Gastro-esophageal reflux disease without esophagitis; Z79.899 Other long term (current) drug therapy
CPT/HCPCS: 80053; 80061; 82607; 83036; 83735; 84443

== ENCOUNTER → 2023-09-30 01:11 | Outpatient (CLI) | payer MEDICAID, SELFPAY ==
--- NOTE | 2023-09-30 | DI.CTLCSR_ITS ---
Exam(s) CT CHEST LUNG CANCER SCREEN EXAM: CT CHEST LUNG CANCER SCREEN CLINICAL HISTORY: SCREENING FOR LUNG CA,SMOKER, f17.210 TECHNIQUE: Imaging Protocol: Axial computed tomography images with coronal and sagittal reformatted images were created and reviewed. Low dose screening protocol. COMPARISON: CT CT CHEST LUNG CANCER SCREEN from 06/09/2022 FINDINGS: Tracheobronchial tree: No bronchiectasis or mucus plugging. Mediastinum and Nohelia: No dominant adenopathy or fluid collection. Pulmonary parenchyma: No consolidation or dominant measurable mass. Mild emphysematous changes. Biap ical scarring. Lung Nodules: Stable 3 millimeter perifissural nodule right upper lobe. Pleura: No effusion. No pneumothorax. Heart: The heart is not dilated. No coronary artery calcifications are seen. Aorta: Thoracic aorta non-dilated. Upper abdomen: Unremarkable. Bones: Unremarkable for age. Soft Tissues: Unremarkable. IMPRESSION: No suspicious pulmonary nodules. Lung RADS Cat 1 - Negative: No nodules and definitely benign nodules Lung-RADS 1.0 CATEGORIES: Category 0 - Prior chest CT exam(s) being located for comparison. Category 1 - Annual screening in 12 months. No nodules or definitely benign nodules. Category 2 - Annual screening in 12 months. Benign appearance. Nodules with low likelihood of becomin g active cancer. Category 3 - 6-month follow-up. Probably benign. Short-term follow-up suggested. Nodules with low lik elihood of becoming active cancer. Category 4A - 3-month follow-up and CT/PET if >8 mm in size. Suspicious finding. Findings which requi re additional testing. Category 4B - Findings which require additional testing and tissue sampling. Category 4X - Category 3 or 4 nodules with additional features or imaging findings that increases the suspicion of malignancy. Modifier S- Potentially clinically significant findings (non lung cancer) RADIATION DOSE DELIVERED: Total DLP DATA REPOSITORY: All CT scans at this facility are submitted to the National Radiology Data Registry (NRDR) Dose Index Registry (DIR) with the [employer] (ACR). RADIATION OPTIMIZATION: All CT scans at this facility use at least one of these dose optimization te chniques: automated exposure control; mA and/or kV adjustment per patient size (includes targeted exa ms where dose is matched to clinical indication); or iterative reconstruction.
== END ==
PROVIDERS: PCP Nurse Practitioner Family; Visit Provider Nurse Practitioner Family
DX: F17.210 Nicotine dependence, cigarettes, uncomplicated (principal)
CPT/HCPCS: 71271

== ENCOUNTER 2023-10-22 03:01 | Outpatient (CLI) | payer MEDICAID, SELFPAY ==
--- NOTE | 2023-10-22 | DI.US_ITS ---
Exam(s) US ABDOMEN LIMITED EXAM: US ABDOMEN LIMITED CLINICAL HISTORY: LIVER ENZYMES LEVEL ABOVE REFERENCE RANGE, R74.01,EVAL TRANSAMINASE LEVELS TECHNIQUE: Ultrasound abdomen performed using standard protocol. COMPARISON: CT CT CHEST LUNG CANCER SCREEN from 09/30/2023 FINDINGS: LIVER: Normal size. Mildly increased echogenicity, consistent with mild hepatic steatosis.. No foca l liver lesions are seen.. GALLBLADDER: No evidence of cholelithiasis. No evidence of wall thickening. No pericholecystic fluid identified. GERARDO'S SIGN: Negative. BILIARY SYSTEM: No intrahepatic or extrahepatic biliary ductal dilation. Common bile duct not well v isualized. RIGHT KIDNEY: Normal size. No evidence of renal calculi. No evidence of hydronephrosis. No suspicious renal mass. No cyst identified. PANCREAS: Normal where visualized. Tail obscured by bowel gas. ABDOMINAL AORTA AND IVC: Visualized portions normal caliber. ASCITES: None seen. IMPRESSION: Mild hepatic steatosis. No biliary dilatation. Gallbladder normal. DATA REPOSITORY:
== END 2023-10-22 03:21 ==
LOC: DI 03:01
PROVIDERS: PCP Nurse Practitioner Family; Visit Provider Nurse Practitioner Family
DX: R74.01 Elevation of levels of liver transaminase levels (principal); K76.0 Fatty (change of) liver, not elsewhere classified
CPT/HCPCS: 76705

== ENCOUNTER 2023-11-09 08:09 | Outpatient (CLI) | payer MEDICAID, SELFPAY ==
--- NOTE | 2023-11-09 08:00 | RT.EKG_ITS ---
APPROVED REPORT Exam: Resting ECG Reason for Exam: PVC Patient Location: O HR:62 bpm ECG Measurements Heart Rate 62 AXIS MT 143 P 101 QRSd 102 QRS 65 QT 426 T 64 QTc 433 Conclusion Sinus rhythm...normal P axis, V-rate 50- 99 Normal Electrocardiogram
== END 2023-11-09 08:10 | disposition home or self-care (01) ==
LOC: DI.CARD 08:12
PROVIDERS: PCP Nurse Practitioner Family; Visit Provider Internal Medicine Cardiovascular Disease
DX: I49.3 Ventricular premature depolarization (principal)
CPT/HCPCS: 93010

== ENCOUNTER 2023-11-11 10:20 | Emergency (ER) | payer MEDICAID, SELFPAY ==
[2023-11-11 10:23] VITALS: BP 138/99; PULSE 89; RESP 12; TEMP 36.4; O2SAT 96
[2023-11-11] MEDS: Lidocaine 1% Pres-Free 5 ML VIAL (10:58)
--- NOTE | 2023-11-11 11:02 | ED.GENADUL_ITS ---
Discharge Plan Disposition Patient Disposition: Home Condition: Stable Discharge Details Clinical Impression: Laceration of right middle finger Primary Care Provider: Padma Abrams ED Provider: Bryan Malik Home Meds and New Rx's Prescriptions: Continued Centrum Silver 0.4 mg-300 mcg- 250 mcg tablet 1 tab PO DAILY ascorbate calcium (vitamin C) 500 mg tablet 500 mg PO DAILY aspirin 81 MG tablet,chewable 81 mg PO DAILY Qty: 30 0RF Calcium Magnesium 1 EACH tablet 1 ea PO DAILY cholecalciferol (vitamin D3) [Vitamin D3] 2,000 UNIT capsule 2,000 unit PO DAILY atorvastatin 20 mg tablet 20 mg PO DAILY tiotropium bromide [Spiriva with HandiHaler] 18 mcg capsule, w/inhalation device 1 cap inhalation DAILY PRN Rx Instructions: puncture 1 cap using device; one dose = 2 inhalations albuterol sulfate [ProAir HFA] 90 mcg/actuation HFA aerosol inhaler 2 inh inhalation Q6H PRN nicotine 14 mg/24 hr patch 24 hour 1 patch transdermal DAILY omeprazole 20 mg capsule,delayed release(DR/EC) 20 mg PO DAILY omeprazole 20 mg capsule,delayed release(DR/EC) 20 mg PO DAILY lisinopril 10 mg tablet 20 mg PO DAILY Discharge Instructions Instructions: Laceration Repair With Stitches ED Additional Instructions: You were seen in the emergency department for the laceration of your right middle finger that was repaired by 1 suture as well as Steri-Strips, you will need to get the sutures removed in 7 to 10 days, please keep the area clean and dry, return to the ED for any signs of infection like redness, drainage, swelling, red streaking up the arm. Referrals: Padma Abrams [Primary Care Provider] - Discharge Data Discharge Date/Time-TO BE ENTERED AT DEPARTURE: 11/11/23 11:51 HPI General Date/Time Provider Initiated Documentation: 11/11/23 10:31 . HPI Narrative: 62 year-old male presents to ED today by POV/ambulating with a chief complaint of hit his R middle finger on a pulp grinder and blender working on his car- causing a fingertip small avulsion laceration with onset just prior to arrival. Patient is R-hand dominant. Quality described as not painful, no radiation to numbness, nailbed involvement, amputation. Severity is described as mild. Palliating factors include nothing specific. Provoking factors include nothing specific. Events leading up to the incident/Associated Symptoms: Patient unsure of last Tdap. Patient not anticoagulated. Related Data Home Medications ?Medication ?Instructions ?Recorded ?Confirmed aspirin 81 mg chewable tablet 81 mg PO DAILY #30 tab-caps 01/28/17 11/11/23 calcium carb, gluc 500 mg 1 ea PO DAILY 04/27/17 11/11/23 calcium-magnesium gluc, oxide 250 mg tablet (Calcium Magnesium) cholecalciferol (vitamin D3) 50 2,000 unit PO DAILY 04/30/17 11/11/23 mcg (2,000 unit) capsule (Vitamin D3) albuterol sulfate 90 mcg/actuation 2 inh inhalation Q6H PRN 10/26/20 11/11/23 aerosol inhaler (ProAir HFA) atorvastatin 20 mg tablet 20 mg PO DAILY 10/26/20 11/11/23 tiotropium bromide 18 mcg capsule 1 cap inhalation DAILY PRN 10/26/20 11/11/23 with inhalation device (Spiriva with HandiHaler) ascorbate calcium (vitamin C) 500 500 mg PO DAILY 11/10/22 11/11/23 mg tablet lisinopril 10 mg tablet 20 mg PO DAILY 11/10/22 11/11/23 mnkhpwxz-pmx-wfkxw acid 0.4 1 tab PO DAILY 11/10/22 11/11/23 mg-lycopene 300 mcg-lutein 250 mcg tablet (Centrum Silver) nicotine 14 mg/24 hr daily 1 patch transdermal DAILY 10/15/23 11/11/23 transdermal patch omeprazole 20 mg capsule,delayed 20 mg PO DAILY 10/15/23 11/11/23 release omeprazole 20 mg capsule,delayed 20 mg PO DAILY 10/15/23 11/11/23 release Previous Rx's ?Medication ?Instructions ?Recorded aspirin 81 mg chewable tablet 81 mg PO DAILY #30 tab-caps 01/28/17 Allergies Allergy/AdvReac Type Severity Reaction Status Date / Time Penicillins Allergy unknown Verified 11/11/23 10:27 General Stated Complaint: Laceration JUAN ANTONIO: 4 Review of Systems All systems reviewed & are unremarkable except as noted in HPI and below Exam Narrative Exam Narrative: GENERAL APPEARANCE: Well-nourished, non-toxic, awake and alert, atraumatic, no acute distress. SKIN: Warm, pink, dry, 0.5cm fingertip avulsion laceration to R middle fingertip, no nailbed involvement, brisk capillary refill, minor oozing of blood HEAD: Normocephalic, atraumatic, normal hair distribution for gender/age. EYES: Normal conjunctiva, no exudates on lids/lashes. ENT: Nares patent, no circumoral cyanosis, no facial swelling NECK: Supple, trachea midline, painless cervical ROM. LUNGS/CHEST: Non-labored respirations, normal A/P diameter, symmetrical expansion, no chest wall deformity HEART (CV/PV): Regular rate, R radial pulse 2+, no peripheral edema, no JVD. ABDOMEN: Soft, non-distended, no guarding. MSK: Normal ROM, no swelling/deformity to bilateral UEs or LEs, moving all ex tremities without weakness, no cyanosis, spine midline without tenderness, normal curvature. NEURO: Mental Status AAOx4 - alert to person, place, time, events No facial droop, no forehead involvement. Motor: No focal weakness - strength 5/5 in bilateral UEs and LEs, proximal and distal, symmetric. Sensory: sensation intact to light touch globally. Gait normal: patient ambulated without ataxia into ED room. PSYCH: euthymic, cooperative, pleasant, appropriate speech Course Vital Signs Vital signs: Vital Signs Temperature 36.4 C L 11/11/23 10:23 Pulse 89 11/11/23 10:23 Respiratory Rate 12 11/11/23 10:23 Blood Pressure 138/99 H 11/11/23 10:23 Pulse Oximetry 96 11/11/23 10:23 Temperature 36.4 C L 11/11/23 10:23 Pulse 89 11/11/23 10:23 Respiratory Rate 12 11/11/23 10:23 Respiratory Effort Normal 11/11/23 10:28 Blood Pressure 138/99 H 11/11/23 10:23 Pulse Oximetry 96 11/11/23 10:23 Oxygen Delivery Method Room Air 11/11/23 10:23 Oxygen Flow Rate 0 11/11/23 10:23 Pain Level 4 11/11/23 10:23 Procedures Laceration Laceration 1: Site: hand Side (If applicable): right Size (cm): 0.5 Description: flap Depth: simple, single layer Local anesthetic: Lidocaine 1% Amount of anesthesia used (mL): 5 Pre-repair: wound explored, irrigated extensively and deep structures intact Skin layer closed with: nylon Size (cm): 5-0 and other (and One Steri-strip) Number of sutures: 1 Medical Decision Making This dictation utilizes [id number] dictation software and may contain unedited grammatical errors. 62 year-old male presents to ED today by POV/ambulating with a chief complaint of hit his R middle finger on a pulp grinder and blender working on his car- causing a fingertip small avulsion laceration with onset just prior to arrival. Patient is R-hand dominant. Quality described as not painful, no radiation to numbness, nailbed involvement, amputation. Severity is described as mild. Palliating factors include nothing specific. Provoking factors include nothing specific. Events leading up to the incident/Associated Symptoms: Patient unsure of last Tdap. Patients' medical history: [ ]. Family and social history: [ ]. Pertinent exam findings / vital signs include SKIN: Warm, pink, dry, 0.5cm fingertip avulsion laceration to R middle fingertip, no nailbed involvement, brisk capillary refill, minor oozing of blood. Differential / pathologies of concern include laceration. Diagnostic studies of: -XR Finger- no fracture. Interventions of: -laceration repari #1 suture 5-0 ethilon, + steri strip. ED Course/Assessment/Plan: 62-year-old male caused an avulsion to his right middle fingertip from contacting a pulp grinder and blender while working on his car, this is repaired by 1 suture as well as a Steri-Strip, I counseled the patient on general wound care and strict return criteria for suture removal in 7 to 10 days or earlier for worsening signs of infection like redness, red streaking up the arm. Findings not consistent with nailbed involvement, neurovascular compromise, fracture. Disposition of laceration of right middle finger. Patient verbalized understanding of the plan and return to ED criteria and engaged in shared decision making. Medical Records Medical records reviewed: Yes I reviewed the patient's medical records. Imaging Data Radiologic Study: Attestation: I personally reviewed and interpreted this imaging study as follows: Imaging: X-Ray Radiologist's impression: EXAM: XR FINGER RT MIDDLE CLINICAL HISTORY: laceration. TECHNIQUE: 2D digital imaging was performed. Three views. COMPARISON: No exams were available for comparison FINDINGS: BONES: No acute fracture is present. No bony destructive lesion is seen. JOINTS: No dislocation present. SOFT TISSUE: Laceration at tip of middle finger. No foreign body. IMPRESSION: Laceration at tip of middle finger. Quality:SDOH Health Related Social Needs: No Data to Display PFSH All Active Problems (Updated 11/11/23 @ 11:41 by KELVIN Marquez) Laceration of right middle finger (Acute) Encounter for screening colonoscopy (Acute) History of cardiomyopathy (Acute) Premature ventricular contractions (Acute) Chest pain (Acute) Prediabetes (Acute) Carpal tunnel syndrome on both sides (Acute) Right foot pain (Acute) Right lateral epicondylitis (Acute 10/15/16) Carpal tunnel syndrome of left wrist (Acute 07/04/15) Medical History Disorder of skin History of prediabetes Cramp in lower leg Pain in thoracic spine History of neck pain Acute joint pain Nonulcer dyspepsia Disorder of lung Ventricular premature complex Essential hypertension Neuropathy Smoker Hypomagnesemia Tubular adenoma of colon (~06/2023) Family history of colon cancer in father And MGF Hyperlipidemia Hypertension GERD (gastroesophageal reflux disease) Quit consuming alcohol in remote past Tobacco abuse Colitis Thoracic back pain Cardiomyopathy Neck pain Periodontal disease COPD (chronic obstructive pulmonary disease) Pulmonary nodules Osteoarthritis Bradycardia Surgical History History of colonoscopy (~06/2023) S/P carpal tunnel release Tonsillectomy Family History Father Colon cancer Diabetes Alcohol use disorder Maternal Grandfather Colon cancer Diabetes Alcohol use disorder Maternal Uncle Lung cancer Maternal Cousin Cancer CANCER STARTED IN HER EYE Maternal Grandmother Diabetes Brother Pancreatic cancer Social History Smoking/Tobacco Use Status: Former Tobacco Use Quit Date: 03/11/23 Tobacco: How many years used: 45 Smoking risk assessment performed?: Yes Alcohol Intake: current Alcohol Intake frequency: a few times a week Alcohol type: beer Drug use: Daily Substance use type: marijuana Details: yesterday afternoon, last dose Household members: spouse Housing: house Number of Children: 5 number of grandchildren: 9 current occupation: [employer] Pets and animals: Yes Pets and animals: cat(s) What is your relationship status?: Panel score (0-1 are the most socially isolated patients): 1 Seatbelt use: sometimes Do you feel safe at home: Yes Do you feel safe in your relationship?: Yes
[2023-11-11 11:50] VITALS: BP 128/86; PULSE 72; RESP 16; O2SAT 98
== END 2023-11-11 11:51 | disposition home or self-care (01) ==
PROVIDERS: Emergency Provider Physician Assistant; PCP Nurse Practitioner Family
DX: S61.212A Laceration without foreign body of right middle finger without damage to nail, initial encounter (principal); Z23 Encounter for immunization; W31.2XXA Contact with powered woodworking and forming machines, initial encounter
CPT/HCPCS: 12001; 90715; 99283; 73140; J2003

== ENCOUNTER 2024-02-17 04:39 | Outpatient (CLI) | payer MEDICAID, SELFPAY ==
[2024-02-17 15:24] LABS: Abs Immature Grans 0.06 10^3/uL (0.0-0.06); Absolute Basophil Count 0.05 10^3/uL (0.0-0.2); Absolute Eosinophil Count 0.16 10^3/uL (0.0-0.7); Absolute Monocyte Count 1.01 10^3/uL (0.1-0.8); Absolute Neutrophil Count 5.78 10^3/uL (1.2-6.7); Basophils % 0.5 %; Eosinophils % 1.6 %; HCT 46.2 % (40.0-50.0); HGB 15.7 g/dL (13.5-17.5); Immature Grans % 0.6 %; Lymphocytes % 30.5 %; MCH 31.7 pg (27.0-33.0); MCV 93 fL (80-95); MPV 10.1 fL (8.0-11.0); Monocytes % 9.9 %; Neutrophils % 56.9 %; Platelet Count 245 10^3/uL (130-400); RBC 4.95 10^6/uL (4.36-5.78); RDW 12.1 % (11.8-14.1); RDW-SD 41.5 fL; WBC 10.16 10^3/uL (4.4-10.8)
[2024-02-17 16:29] LABS: ALT 85 U/L (16-63); AST 49 U/L (15-37); Albumin 4.2 g/dL (3.4-5.0); Alkaline Phosphatase 99 U/L (46-116); Anion Gap 12.8 mmol/L (3-11); BUN 12 mg/dL (7-18); Bilirubin, Total 0.49 mg/dL (0.2-1.0); CO2 25.2 mmol/L (21.0-32.0); Calcium 9.2 mg/dL (8.5-10.1); Chloride 104 mmol/L (98-107); Estimated GFR 85.63 (mL/min/1.73m2); Glucose 102 mg/dL (74-106); Potassium 4.3 mmol/L (3.5-5.1); Sodium 142 mmol/L (136-145); Total Protein 7.7 g/dL (6.4-8.2)
== END 2024-02-17 04:40 | disposition home or self-care (01) ==
LOC: LBO 04:39
PROVIDERS: PCP Nurse Practitioner Family; Visit Provider Nurse Practitioner Family
DX: R19.7 Diarrhea, unspecified (principal)
CPT/HCPCS: 36415; 80053; 85025

== ENCOUNTER 2024-09-30 00:22 | Outpatient (CLI) | payer MEDICAID, SELFPAY ==
--- NOTE | 2024-09-30 | DI.CTLCSR_ITS ---
Exam(s) CT CHEST LUNG CANCER SCREEN EXAM: CT CHEST LUNG CANCER SCREEN CLINICAL HISTORY: EX-SMOKER, Z87.891. TECHNIQUE: Imaging Protocol: Low Dose Technique CONTRAST MATERIAL: None COMPARISON: CT CT CHEST LUNG CANCER SCREEN from 05/13/[address] CHEST LUNG CANCER SCREEN from 06/09/[address] CHEST LUNG CANCER SCREEN from 09/30/2023 FINDINGS: CHEST: LUNGS: There is again noted a stable appearing 4 mm noncalcified nodule in the right upper lobe region. There are no new ominous pulmonary nodules. There are no confluent infiltrates. No pleural effusions. MEDIASTINUM: There is no obvious hilar nor mediastinal adenopathy. CARDIAC: Heart size is normal. There is no pericardial effusion.Caliber of the thoracic aorta is within normal limits. OTHER: No adrenal masses. OSSEOUS: No significant osseous lesions.No fractures.. IMPRESSION: 1. Stable benign-appearing right upper lobe nodule. No new significant pulmonary findings. 2. No pleural effusions nor obvious intrathoracic adenopathy. 3. Lung RADS Cat 1 - Negative: No nodules and definitely benign nodules Lung-RADS 1.0 CATEGORIES: Category 0 - Prior chest CT exam(s) being located for comparison. Category 1 - Annual screening in 12 months. No nodules or definitely benign nodules. Category 2 - Annual screening in 12 months. Benign appearance. Nodules with low likelihood of becoming active cancer. Category 3 - 6-month follow-up. Probably benign. Short-term follow-up suggested. Nodules with low likelihood of becoming active cancer. Category 4A - 3-month follow-up and CT/PET if >8 mm in size. Suspicious finding. Findings which require additional testing. Category 4B - Findings which require additional testing and tissue sampling. Category 4X - Category 3 or 4 nodules with additional features or imaging findings that increases the suspicion of malignancy. Modifier S- Potentially clinically significant findings (non lung cancer) RADIATION DOSE DELIVERED: 26.7mGy.cm Total DLP DATA REPOSITORY: All CT scans at this facility are submitted to the National Radiology Data Registry (NRDR) Dose Index Registry (DIR) with the [employer] (ACR). RADIATION OPTIMIZATION: All CT scans at this facility use at least one of these dose optimization techniques: automated exposure control; mA and/or kV adjustment per patient size (includes targeted exams where dose is matched to clinical indication); or iterative reconstruction.
--- NOTE | 2024-09-30 | DI.US_ITS ---
Exam(s) US ABDOMEN LIMITED EXAM: US ABDOMEN LIMITED CLINICAL HISTORY: STEATOTIC LIVER DISEASE, FATTY LIVER K76.0 TECHNIQUE: Ultrasound abdomen performed using standard protocol. COMPARISON: US US ABDOMEN LIMITED from 10/22/[address] CHEST LUNG CANCER SCREEN from 09/30/2024 FINDINGS: There is no ascites evident. LIVER: The liver is again noted be hyperechoic indicating steatosis. No discrete focal hepatic lesions evident. GALLBLADDER/BILIARY: There are no gallstones. No gallbladder wall edema nor pericholecystic fluid. The common hepatic duct isnot dilated, measuring 3mm at the level of marbella hepatis. PANCREAS: There is no evidence of pancreatic mass nor dilatation of the pancreatic duct. RIGHT KIDNEY:No evidence of solid mass, calculus, nor hydronephrosis. No cortical cysts evident. IMPRESSION: 1. No evidence of cholelithiasis nor dilatation of the biliary tree. 2. Hepatic steatosis again evident, as was seen on prior ultrasound examination of 1 year ago. There are no discrete focal hepatic lesions 3. No other right upper quadrant ultrasound findings and there is no ascites. DATA REPOSITORY:
== END 2024-09-30 00:42 ==
PROVIDERS: PCP Nurse Practitioner Family; Visit Provider Nurse Practitioner Family
DX: Z12.2 Encounter for screening for malignant neoplasm of respiratory organs (principal); Z87.891 Personal history of nicotine dependence; R91.1 Solitary pulmonary nodule; K76.0 Fatty (change of) liver, not elsewhere classified
CPT/HCPCS: 71271; 76705

== ENCOUNTER 2025-02-13 12:40 | Outpatient (REF) | payer MEDICAID, SELFPAY ==
[2025-02-13 15:22] LABS: Abs Immature Grans 0.05 10^3/uL (0.0-0.06); HCT 46.8 % (40.0-50.0); HGB 15.6 g/dL (13.5-17.5); Immature Grans % 0.7 %; MCH 31.4 pg (27.0-33.0); MCHC 33.3 % (32.0-36.0); MCV 94 fL (80-95); MPV 11.0 fL (8.0-11.0); Platelet Count 233 10^3/uL (130-400); RBC 4.97 10^6/uL (4.36-5.78); RDW 11.7 % (11.8-14.1); RDW-SD 40.6 fL; WBC 7.44 10^3/uL (4.4-10.8)
[2025-02-13 15:48] LABS: Hemoglobin A1C 5.6 % (<5.7)
[2025-02-13 15:59] LABS: ALT 57 U/L (10-49); AST 39 U/L (<34); Albumin 4.5 g/dL (3.2-5.0); Alkaline Phosphatase 79 U/L (46-116); Anion Gap 6.9 mmol/L (3-11); BUN 25 mg/dL (9-23); Bilirubin, Total 0.5 mg/dL (0.2-1.2); CO2 28.1 mmol/L (20.0-31.0); Calcium 9.7 mg/dL (8.3-10.6); Chloride 107 mmol/L (98-107); Glucose 117 mg/dL (74-106); Potassium 4.6 mmol/L (3.5-5.1); Sodium 142 mmol/L (136-145); Total Protein 7.1 g/dL (5.7-8.2)
== END 2025-02-13 12:41 | disposition home or self-care (01) ==
LOC: NCHCN 12:40
PROVIDERS: PCP Nurse Practitioner Family; Visit Provider Nurse Practitioner Family
DX: K76.0 Fatty (change of) liver, not elsewhere classified (principal); I10 Essential (primary) hypertension; Z86.79 Personal history of other diseases of the circulatory system; E78.2 Mixed hyperlipidemia; I49.3 Ventricular premature depolarization; R73.03 Prediabetes
CPT/HCPCS: 80053; 83036; 85025